=== PATIENT | male | born 1985 | race Caucasian/White ===

== ENCOUNTER 2020-01-09 11:02 | Outpatient (CLI) | payer BC, SELFPAY ==
[2020-01-12 03:05] LABS: Patient Race White; SARS-CoV-2 RNA Undetected (Undetected); SARS-CoV-2 Specimen Source Nasal
== END 2020-01-09 11:22 ==
PROVIDERS: PCP Family Medicine; Visit Provider Physician Assistant Medical
DX: R05 Cough (principal)
CPT/HCPCS: U0003

== ENCOUNTER → 2023-09-04 17:39 | Outpatient (CLI) | payer BC, SELFPAY ==
--- NOTE | 2023-09-04 18:23 | DI.RAD_ITS ---
Exam(s) XR CHEST 2V PA LATERAL EXAM: XR CHEST 2V PA LATERAL CLINICAL HISTORY: Chronic Cough R05.3 TECHNIQUE: 2D digital imaging was performed. Two views. COMPARISON: No exams were available for comparison FINDINGS: HEART: Normal size. Aorta: Not dilated. PULMONARY VASCULATURE: Normal. MEDIASTINUM: Unremarkable. LUNGS: Clear. PLEURAL SPACE: No pleural effusion or pneumothorax. BONE:Unremarkable for age. SOFT TISSUES: Unremarkable. IMPRESSION: No acute abnormality. DATA REPOSITORY: RADIATION DOSE DELIVERED:
--- NOTE | 2023-09-04 19:28 | DI.VRAD_ITS ---
PROCEDURE INFORMATION: Exam: XR Chest Exam date and time: 09/04/2023 6:20 PM Age: 38 years old Clinical indication: Cough TECHNIQUE: Imaging protocol: Radiologic exam of the chest. Views: 2 views. COMPARISON: No relevant prior studies available. FINDINGS: Lungs: Increased linear opacities noted in the left lower lobe, concerning for atelectasis versus pneumonia. Pleural spaces: No pleural effusion. No pneumothorax. Heart/Mediastinum: No cardiomegaly. Bones/joints: Unremarkable. IMPRESSION: Findings concerning for mild pneumonia versus atelectasis in the left lower lobe. Correlate with clinical findings. Dictated and Authenticated by: Courtney Devine MD. Ordering:MOLLY Hernandez MD
== END ==
LOC: LBN 17:43 → DI 18:05
PROVIDERS: PCP Internal Medicine; Visit Provider Physician Assistant Medical
DX: R05.3 Chronic cough (principal)
CPT/HCPCS: 71046

== ENCOUNTER 2023-12-25 14:54 | Emergency (ER) | payer OTHER, SELFPAY ==
[2023-12-25 14:55] VITALS: BP 131/81; PULSE 66; RESP 16; TEMP 37.1; O2SAT 98
[2023-12-25 15:06] VITALS: BP 131/81; PULSE 66; RESP 16; TEMP 37.1; O2SAT 98
--- NOTE | 2023-12-25 15:09 | ED.GENADUL_ITS ---
Discharge Plan Disposition Patient Disposition: Home Condition: Stable Discharge Details Clinical Impression: Dog bite of left hand Primary Care Provider: Roberto Neil ED Provider: Jamar Stack Home Meds and New Rx's Prescriptions: New amoxicillin-pot clavulanate 875-125 mg tablet 1 tab PO BID Qty: 14 0RF Continued albuterol sulfate 8.5 GM HFA aerosol inhaler 2 puff Inhalation PRN PRN dexlansoprazole [Dexilant] 30 MG capsule,biphase delayed releas 30 mg PO DAILY ondansetron HCl [Zofran] 4 MG tablet 4 mg PO Q6H PRN (Reason: Vomiting) Qty: 12 0RF omeprazole 40 mg capsule,delayed release(DR/EC) 40 mg PO DAILY losartan 50 mg tablet 50 mg PO DAILY Discharge Instructions Additional Instructions: If the dog is not up-to-date on its shots if they can be watched for 10 days and does not show signs of rabies such as hypersalivation and no rabies prophylaxis is indicated. If you have spreading redness from the wound or severe worsening hand pain return to the emergency department for reevaluation. HPI General Mode of arrival: ambulatory . Date/Time Provider Initiated Documentation: 12/25/23 15:01 . Limitations to Documentation: no limitations . Information obtained by: patient . History of Present Illness 38 year old M presents to the emergency department with the chief complaint of dog bite left hand, and is localized to the left and upper extremity. Patient reports no radiation. Patient started experiencing this hour(s) (2) and it has been constant. No relieving factors improve symptom(s), No exacerbating factors reported . Patient notes no other symptoms.. Related Data Home Medications ?Medication ?Instructions ?Recorded ?Confirmed albuterol sulfate 90 mcg/actuation 2 puff inhalation PRN PRN 04/04/13 12/25/23 aerosol inhaler dexlansoprazole 30 mg 30 mg PO DAILY 04/04/13 12/25/23 capsule,biphase delayed release (Dexilant) ondansetron HCl 4 mg tablet 4 mg PO Q6H PRN Vomiting ##12 04/13/14 12/25/23 (Zofran) amoxicillin 875 mg-potassium 1 tab PO BID #14 tabs 12/25/23 clavulanate 125 mg tablet losartan 50 mg tablet 50 mg PO DAILY 12/25/23 12/25/23 omeprazole 40 mg capsule,delayed 40 mg PO DAILY 12/25/23 12/25/23 release Previous Rx's ?Medication ?Instructions ?Recorded ondansetron HCl 4 mg tablet 4 mg PO Q6H PRN Vomiting ##12 04/13/14 (Zofran) amoxicillin 875 mg-potassium 1 tab PO BID #14 tabs 12/25/23 clavulanate 125 mg tablet Allergies Allergy/AdvReac Type Severity Reaction Status Date / Time No Known Allergies Allergy Unverified 12/25/23 14:59 General Stated Complaint: AnimalBite TENA: 4 Review of Systems All systems reviewed & are unremarkable except as noted in HPI and below Constitutional Constitutional: Denies chills, Denies fever(s) and Denies weakness Cardiovascular Cardiovascular: Denies dyspnea Respiratory Respiratory: Denies cough and Denies dyspnea Gastrointestinal Gastrointestinal: Denies abdominal pain and Denies vomiting Integumentary/Breasts Skin/Breast: Denies rash Neurologic Neurologic: Denies weakness Exam Const General: no acute distress Orientation: alert HENFL Head: normal to inspection Ears: external ears normal General nose exam: external nose normal Mouth: moist mucous membranes Eyes General: appearance normal, both eyes and all related structures Neck Neck: normal visual inspection Resp Effort & Inspection: normal respiratory effort and able to speak in complete sentences Cardio Rate: regular rate Skin General skin exam: no rashes or lesions noted Neuro General: patient alert and patient oriented x3 Extrem General: full ROM and capillary refill normal Psych Mental Status: mental status grossly normal Course Vital Signs Vital signs: Vital Signs Temperature 37.1 C 12/25/23 14:55 Pulse 66 12/25/23 14:55 Respiratory Rate 16 12/25/23 14:55 Blood Pressure 131/81 12/25/23 14:55 Pulse Oximetry 98 12/25/23 14:55 Temperature 37.1 C 12/25/23 15:06 Temperature Source Oral 12/25/23 15:06 Pulse 66 12/25/23 15:06 Respiratory Rate 16 12/25/23 15:06 Respiratory Effort Normal, Non-Labored 12/25/23 15:00 Blood Pressure 131/81 12/25/23 15:06 Blood Pressure Position Sitting 12/25/23 15:06 Pulse Oximetry 98 12/25/23 15:06 Oxygen Delivery Method Room Air 12/25/23 15:06 Oxygen Flow Rate 0 12/25/23 15:06 Pain Level 1 12/25/23 15:06 Medical Decision Making 38-year-old male comes in with a dog bite to the left hand. 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 Did not fall or sustain other injuries. He has a small 1 to 2 mm superficial puncture wound to the left lateral hand. No other abrasions or laxity with full range of motion of the fingers and wrist and no bony tenderness so doubt fracture and do not feel x-ray is indicated. He says the dogs are up-to-date on his rabies vaccine so do not feel rabies prophylaxis is indicated. Dog and also a wash for [address] him on Augmentin and return precautions given Differential Diagnosis Differential Diagnosis: Dog bite, puncture wound Quality:SDOH Health Related Social Needs: No Data to Display PFSH All Active Problems (Updated 12/25/23 @ 15:11 by Jamar Stack MD) Dog bite of left hand (Acute) Social History Smoking/Tobacco Use Status: Never Smoking risk assessment performed?: Yes Alcohol Intake: current Alcohol Intake frequency: a few times a week Alcohol type: beer, wine and hard liquor Drug use: Never Substance use type: does not use Do you feel safe at home: Yes Do you feel safe in your relationship?: Yes
[2023-12-25] MEDS: Amoxicillin 875/Clav. 125 TAB PO (15:20)
[2023-12-25] MEDS: Tetanus & Diphtheria Tox,ADULT 0.5 ML VIAL IM (15:20)
--- OUTSIDE RECORDS SUMMARY | 2023-12-25 15:22 | XMS_ITS | Clinical Summary ---
Author Organization [facility] [place] [address] Care Team Providers Care Community Living Specialist Name Role Phone Olya Bauman MD Primary Care Provider [phone] Allergies No known active allergies Medications Medication Sig Dispensed Refills Start Date End Date Status dexlansoprazole (DEXILANT) 60 mg CpDM Take 60 mg by mouth daily. Active albuterol (PROVENTIL HFA;VENTOLIN HFA;PROAIR) 90 mcg/actuation HFA Aerosol Inhaler Inhale 2 puffs into the lungs every 4 hours as needed for Wheezing. Use with spacer Active ERGOCALCIFEROL, VITAMIN D2, (VITAMIN D ORAL) Take by mouth. Active Active Problems Problem Noted Date Diagnosed Date Araiza's esophagus 10/17/2014 Hiatal hernia 10/17/2014 Esophageal reflux 06/19/2014 Dermatitis 03/31/2011 Ichthyosis vulgaris 03/20/2011 Pruritus 03/20/2011 Social History Tobacco Use Types Packs/Day Years Used Date Smoking Tobacco: Never Smokeless Tobacco: Never Alcohol Use Standard Drinks/Week Comments Yes 0 (1 standard drink = 0.6 oz pur e alcohol) Occasional Sex and Gender Information Value Date Recorded Sex Assigned at Not on file Gender Identity Not on file Sexual Orientation Not on file Last Filed Vital Signs Vital Sign Reading Time Taken Comments Blood Pressure 132/71 12/25/2017 2:30 PM EDT Pulse 92 12/25/2017 2:05 PM EDT Temperature 37.3 ??C (99.1 ??F) 12/25/2017 1:16 PM ED T Respiratory Rate 16 12/25/2017 2:30 PM EDT Oxygen Saturation 95% 12/25/2017 2:15 PM EDT Inhaled Oxygen Concentration - - Weight 99.8 kg (220 lb) 12/25/2017 1:12 PM EDT Height 177.8 cm (5' 10) 12/25/2017 1:12 PM EDT Body Mass Index 31.57 12/25/2017 1:12 PM EDT Plan of Treatment Health Maintenance Due Date Last Done Comments HIV screen 2004 Hepatitis C Screening 2004 Lipid Screening 2004 Hepatitis B vaccine (0-59 yrs) (1) 2005 Tetanus/Diphtheria/Pertussis Vaccines (1 - Tdap) 08/22 Covid-19 Vaccine (1 - season) 2023 Influenza (Flu) vaccine (1 o f 1 - Influenza standard series) 10/25/2023 Care Teams Community Living Specialist Relationship Specialty Start Date End Date Olya Bauman MD [address] [place] [address] PCP - General 01/29/11
--- OUTSIDE RECORDS SUMMARY | 2023-12-25 15:22 | XMS_ITS | Encounter Summary ---
Author Organization [facility] Address [facility] [place] [address] Care Team Providers Care Security Systems Technician Name Role Phone Olya Bauman MD Primary Care Provider [phone] Encounter Details Date Type Department Care Team (Late st Contact Info) Description 12/25/2017 12:19 PM EDT - 12/25/2017 2:47 PM EDT Hospital [place] [id number] Hi Scales MD [facility] [place] [address] Discharge Disposition: Home Social History Tobacco Use Types Packs/Day Years Used Date Smoking Tobacco: Never Smokeless Tobacco: Never Alcohol Use Standard Drinks/Week Comments Yes 0 (1 standard drink = 0.6 oz pur e alcohol) Occasional Sex and Gender Information Value Date Recorded Sex Assigned at Not on file Gender Identity Not on file Sexual Orientation Not on file documented as of this encounter Last Filed Vital Signs Vital Sign Reading [...] Mass Index 31.57 12/25/2017 1:12 PM EDT documented in this encounter Discharge Instructions * Discharge Instructions* Lien Maynard RN - 12/25/2017 2:07 PM EDT UPPER GI ENDOSCOPY WHAT TO EXPECT AFTER THE PROCEDURE After the test you may feel a little more gassy or bloated than usual, this is normal. ACTIVITY Because of the sedation that you received Your judgement and reaction time are affected ?? Go home and rest quietly for the remainder of the day. You may resume your normal activities tomorrow. ?? Change from one position to the next slowly. You may lose your balance unexpectedly Be careful on stairs, as you may be unsteady on your feet. FOR THE NEXT 24 HRS ?? DO NOT DRIVE OR OPERATE ANY MACHINERY ?? DO NOT DRINK ALCOHOLIC BEVERAGES ?? DO NOT SIGN LEGAL DOCUMENTS ?? If you are a smoker: DO NOT SMOKE WHILE YOU ARE ALONE Diet ?? Start by eating small portions of foods that ordinarily will not upset your stomach. Be gentle with what you choose to start with. ?? Drink plenty of fluids ( unless otherwise told not to) Medications You may have a mild sore throat. Ice chips, popsicles, over the counter throat lozenges or spray may help numb your throat. This procedure should not cause a fever. IV SITE-- slight redness or tenderness is normal, you can use warm compresses if you get concerned.If the tenderness +/or redness increases or foul drainage and a red streak occurs, please contact your PCP immediately. WHEN SHOULD YOU CALL FOR HELP? Call 911 anytime you think that you need emergency care. For example, call if: You passed out (lost consciousness). You cough up blood. You vomit blood or what looks like coffee grounds. You pass maroon or very bloody stools. Call your healthcare provider or seek immediate medical attention if: You have trouble swallowing. You have belly pain. Your stools are black or tarlike or have streaks of blood. You are sick to your stomach or cannot keep fluids down. Watch closely for changes in your health, and be sure to contact your doctor IF Your throat still hurts after a day or two You do not get better as expected. Thursday-Thursday Same Day Endo [phone] 7a-8p Otherwise contact [phone] and ask to speak to the security officers and guards diamond powder mixer Follow-up care is a hope part of your treatment and safety. Be sure to make and go to all appointments, and call your doctor if you are having problems. Instructions have been reviewed and patient expresses understanding documented in this encounter Medications at Time of Discharge Medication Sig Dispensed Refills Start Date End Date albuterol (PROVENTIL HFA;VENTOLIN HFA;PROAIR) 90 mcg/actuation HFA Aerosol Inhaler Inhale 2 puffs into the lungs every 4 hours as needed for Wheezing. Use with spacer ERGOCALCIFEROL, VITAMIN D2, (VITAMIN D ORAL) Take by mouth. dexlansoprazole (DEXILANT) 60 mg CpDM Take 60 mg by mouth daily. documented as of this encounter H&P Notes * Hi Scales MD - 12/25/2017 12:55 PM EDT Patient Name: Shaka Liu Patient Age: 32 y.o. Birthdate: 1985 Admit date: 12/25/2017 Attending Physician: Hi Scales MD Gastroenterology & Hepatology Pre-Procedure History and Physical Planned Procedure: EGD: Indication: Araiza's surveillance, history of reflux and hiatal hernia Patient Active Problem List Diagnosis Code ??? Ichthyosis vulgaris Q80.0 ??? Pruritus L29.9 ??? Dermatitis L30.9 ??? Esophageal reflux K21.9 ??? Araiza's esophagus K22.70 ??? Hiatal hernia K44.9 Medications: Reviewed in EDH No Known Allergies Social History/Family History: Reviewed in EDH. No changes Exam: Most Recent Vitals: 12/25/17 1316 BP: 133/85 Pulse: 72 Resp: 18 Temp: 37.3 ??C (99.1 ??F) SpO2: 97% GEN: NAD, AAOX3 HEENT: NC/AT dryMM, anicteric Chest: CTAB Heart: RRR, nl s1, s2 Abdomen: normal bowel sounds, soft, non tender Assessment and Plan: Proceed with EGD: ASA Grade: ASA 1 - Normal health patient Mallampati: I (soft palate, uvula, fauces, tonsillar pillars visible) Sedation plan: Moderate Conscious sedation Risks and benefits of the procedure were discussed with the patient. Consent has been signed. documented in this encounter Plan of Treatment Not on file documented as of this encounter Procedures Procedure Name Priority Date/Time Associated Diagnosis Comments SPECIMEN TO PATHOLOGY Routine 12/25/2017 1:58 PM EDT SURGICAL PATHOLOGY REPORT Routine 12/25/2017 1:57 PM EDT EGD, UPPER GI ENDOSCOPY (WRVU 2.09) 12/25/2017 1:34 PM EDT 3yr surv UPPER GI ENDOSCOPY Routine 12/25/2017 1: 19 PM EDT documented in this encounter Results * Specimen to Pathology (12/25/2017 1:58 PM EDT) AP Specimen 12/25/2017 1:58 PM EDT 12/25/2017 2:58 PM EDT Narrative [facility] - 12/25/2017 2:58 PM EDT Specimen requisition ordered. ??Separate Pathology report to follow Resulting Agency Comment Spec In Lab Hi Scales MD PATHOLOGY/CYTOLOG Y ORDERABLES [facility] [place] [address] * Surgical Pathology Report (12/25/2017 1:57 PM EDT) Final Diagnosis [id number] ? Location: 4T; EA08; A The signing pathologist has (i) examined the relevant preparation(s) for the specimen(s) and (ii) rendered or confirmed the diagnosis(es). . ?Surgical Pathology DIAGNOSIS Esophagus, 35-37 cm, Araiza ??'s surveillance, ??biopsy - ??Araiza's esophagus, negative for dysplasia. Electronically signed by: ??Thomas Rhodes MD Verified: ??12/29/2017 ?Pathologist Performed at: ??[facility] Dept. of Pathology, [place], [place] CLINICAL INFORMATION Specimen Submitted: A - Esophagus 35-37 cm Clinical History and Diagnosis: 32-year-old male history of Araiza ??'s, surveillance SPECIMEN PROCESSING A - Labeled/Fixative : Esophagus 35-37 cm Araiza ?? 's surveillance, formalin. Quantity/Size: Five, averaging 0.4 cm. Tissue Description: Soft, red tissues. Sections/Process ing: Submitted en toto ??in 1 cassette labeled A1. ??sns 12/29/2017 4:17 PM EST [facility] GI Biopsy 12/25/2017 1:57 PM EDT 12/25/2017 1:57 PM EDT Hi Scales MD PATHOLOGY/CYTOLOG Y ORDERABLES Performing Organization Address City/State/[facility] Co de Phone Number [facility] [place] [address] * UPPER GI ENDOSCOPY (12/25/2017 1:19 PM EDT) UPPER GI ENDOSCOPY [facility] Procedure Date: 12/25/2017 1:19 PM ? Patient Name: Shaka Liu ? Date of : 1985 ? Age: 32 ? Order #: [id number] ? Instrument Name: [id number] ? Procedure: ? Upper GI endoscopy Indications: ? Surveillance for malignancy due to ? personal history of Araiza's ? esophagus Providers: ? Hi Scales MD, Kimberly ? Eddi Oliver RN Referring : ?Olya Bauman MD Medicines: ? Midazolam 5 mg IV, Fentanyl 250 ? micrograms IV, Benzocaine spray, ? Diphenhydramine 50 mg IV Complications: ? No immediate complications. Procedure: ? Pre-Anesthesia Assessment: ? - Prior to the procedure, a History ? and Physical was performed, and ? patient medications and allergies ? were reviewed. The patient's ? tolerance of previous anesthesia was ? also reviewed. The risks and benefits ? of the procedure and the sedation ? options and risks were discussed with ? the patient. All questions were ? answered, and informed consent was ? obtained. Prior Anticoagulants: The ? patient has taken no previous ? anticoagulant or antiplatelet agents. ? ASA Grade Assessment: I - A normal, ? healthy patient. After reviewing the ? risks and benefits, the patient was ? deemed in satisfactory condition to ? undergo the procedure. ? The procedure, indications, benefits, ? risks and alternatives were explained ? to the patient. Specifically ? discussed were potential ? complications including, but not ? limited to, bleeding, perforation, ? infection, missing a cancer, and ? adverse medication reactions. The ? Endoscope was introduced through the ? mouth, and advanced to the third part ? of duodenum. The patient tolerated ? the procedure well. The upper GI ? endoscopy was accomplished without ? difficulty. The patient tolerated the ? procedure well. ? Findings: ? The Z-line was irregular and was found 35 to 36 cm ? from the incisors. ? There were esophageal mucosal changes consistent with ? short-segment Araiza's esophagus present in the ? distal esophagus from 36-37 cm with a tongue of pink ? mucosa extending to 35 cm. The maximum longitudinal ? extent of these mucosal changes was 2 cm in length. ? Mucosa was examined with Narrow Band Imaging (NBI). ? Mucosa was biopsied with a cold forceps for ? histology. Circumferential 4 quadrant biopsies were ? taken from 36-37 cm with targeted biopsies within ? mucosal changes from 35-36 cm. One specimen bottle ? was sent to pathology with a total of 8 biopsy ? specimens. ? A small 2-3 cm sliding hiatal hernia was found. The ? proximal extent of the gastric folds (end of tubular ? esophagus) was 37 cm from the incisors. The hiatal ? narrowing was 40 cm from the incisors. ? The stomach was otherwise normal including the ? retroflexed views ? The examined duodenum was normal. ? Moderate Sedation: ? Moderate (conscious) sedation was administered by the ? endoscopy nurse and supervised by the endoscopist. ? The patient's oxygen saturation, heart rate, blood ? pressure and response to care were monitored. ? I was present during the intraservice time as ? documented by the sedation RN. Impression: ?- Z-line irregular, 35 to 36 cm from ? the incisors. ? - Esophageal mucosal changes ? consistent with short-segment ? Araiza's esophagus from 35-37 cm. ? Biopsied. ? - Small 2-3 cm sliding hiatal hernia. ? - Normal stomach. ? - Normal examined duodenum. Recommendation: ?- Await pathology results. ? - Follow an antireflux regimen. ? - Continue daily PPI therapy (e.g ? Dexilant) as you are doing. ? - Repeat Endoscopy in 3-5 years for ? surveillance. ? Attending Participation: ? I personally performed the entire procedure. ? I was present during the intraservice time as ? documented by the sedation RN. ? Dr. Franco Scales ___ Hi Scales MD 12/25/2017 2:05:16 PM Number of Addenda: 0 Note Initiated On: 12/25/2017 1:19 PM PROVATION 12/25/2017 1:19 PM EDT Olya Bauman MD GENERAL SURGICAL ORD ERABLES PROVATION documented in this encounter Visit Diagnoses Not on filedocumented in this encounter Administered Medications Inactive Administered Medications - up to 3 most recent administrations Medication Order MAR Action Action Date Dose Rate Site lactated Ringers infusion 100 mL/hr, Intravenous, CONTINUOUS, Starting on Thu12/25/17 at 1330, Until Thu12/25/17 at 1440, Endoscopy (Day of Procedure) New Bag 12/25/2017 1:30 PM EDT 100 mL/hr 100 mL/hr documented in this encounter Active and Recently Administered Medications Times are shown in EDT. Continuous Medication Order 12/23/2017 12/24/2017 12/25/2017 lactated Ringers infusion (CANCELED) 100 mL/hr, Intravenous, CONTINUOUS, Starting on Thu12/25/17 at 1330, Until Thu12/25/17 at 1440, Endoscopy (Day of Procedure) 1330 (New Bag - Prov ider: María Knutson RN) PRN Medication Order 12/23/2017 12/24/2017 12/25/2017 diphenhydrAMINE (BENADRYL) injection (CANCELED) ONCE PRN, Starting on Thu12/25/17 at 1334, Until Thu12/25/17 at 1647, Intra-Operative (Intra-Procedure), Routine 1331 (Given - Provid er: Kimberly Oliver RN)1334 (Given - Provider: Kimberly Oliver RN) fentaNYL 50 mcg/mL multi-dose injection (CANCELED) ONCE PRN, Starting on Thu12/25/17 at 1335, Until Thu12/25/17 at 1647, Intra-Operative (Intra-Procedure), Routine 1335 (Given - Provid er: Kimberly Oliver RN)1338 (Given - Provider: Kimberly Oliver RN)1341 (Given - Provider: Kimberly Oliver RN)1345 (Given - Provider: Kimberly Oliver RN)1348 (Given - Provider: Kimberly Oliver RN) midazolam (PF) (VERSED) multi-dose injection (CANCELED) ONCE PRN, Starting on Thu12/25/17 at 1334, Until Thu12/25/17 at 1647, Intra-Operative (Intra-Procedure), Routine 1334 (Given - Provid er: Kimberly Oliver RN)1337 (Given - Provider: Kimberly Oliver RN)1341 (Given - Provider: Kimberly Oliver RN)1344 (Given - Provider: Kimberly Oliver RN)1348 (Given - Provider: Kimberly Oliver RN) documented in this encounter Care Teams Security Systems Technician Relationship Specialty Start Date End Date Olya Bauman MD [address] [address] PCP - General 01/29/11 documented as of this encounter
--- OUTSIDE RECORDS SUMMARY | 2023-12-25 15:22 | XMS_ITS | Encounter Summary ---
Author Organization [facility] Address [facility] [place] [address] Care Team Providers Care Wagon Washer Name Role Phone Olya Bauman MD Primary Care Provider [phone] Encounter Details Date Type Department Care Team (Latest Contact Info) Description 11/07/2014 10:10 AM EDT - 11/07/2014 11:59 PM EDT Hospital Encounter XRay at [address] [place] [address] Daryl Mcdaniel MD [facility] [place] [address] Araiza's esophagus; Hiatal hernia Discharge Disposition: Home Social History Tobacco Use Types Packs/Day Years Used Date Smoking Tobacco: Never Smokeless Tobacco: Never Alcohol Use Standard Drinks/Week Comments Yes 0 (1 standard drink = 0.6 oz pur e alcohol) Occasional Sex and Gender Information Value Date Recorded Sex Assigned at Not on file Gender Identity Not on file Sexual Orientation Not on file documented as of this encounter Medications at Time of Discharge [...] mouth daily. documented as of this encounter Plan of Treatment Not on file documented as of this encounter Procedures Procedure Name Priority Date/Time Associated Diagnosis Comments XR FLUORO BARIUM SWALLOW (SINGLE CONTRAST) Routine 11/07/2014 10:43 AM EDT Araiza's esophagus Hiatal hernia documented in this encounter Results * XR Fluoro Barium Swallow (11/07/2014 10:43 AM EDT) Anatomical Region Laterality Modality N/A Radiographic Lisa ging 11/07/2014 10:4 3 AM EDT Impressions 11/08/2014 3:55 PM EDT IMPRESSION: Tiny sliding hiatal hernia. Gastroesophageal reflux with supine position. This report was reviewed by Jenna Cannon at 11/08/2014 3:49 PM Film and interpretation reviewed by the attending Narrative 11/08/2014 3:55 PM EDT EXAMINATION: BARIUM SWALLOW CLINICAL HISTORY: Question type and size of hiatal hernia. TECHNIQUE: Double contrast esophagram was performed. Fluoroscopic spot films were obtained. A 13 mm barium tablet was given. Fluoroscopy time: 52 seconds. COMPARISON: None FINDINGS: The esophagus is normal in course and caliber, and is distended on double contrast views. The mucosal pattern is normal. There is a tiny sliding hiatal hernia. Esophageal peristalsis is normal. Faint gastroesophageal reflux when patient moves from lateral position to supine. A 13 mm barium tablet passed easily through the esophagus into the stomach. Procedure Note Jenna Cannon MD - 11/08/2014 EXAMINATION: BARIUM SWALLOW CLINICAL HISTORY: Question type and size of hiatal hernia. TECHNIQUE: Double contrast esophagram was performed. Fluoroscopic spotfilms were obtained. A 13 mm barium tablet was given. Fluoroscopy time: 52 seconds. COMPARISON: None FINDINGS: The esophagus is normal in course and caliber, and is distended ondouble contrast views. The mucosal pattern is normal. There is a tiny slidinghiatal hernia. Esophageal peristalsis is normal. Faint gastroesophageal refluxwhen patient moves from lateral position to supine. A 13 mm barium tabletpassed easily through the esophagus into the stomach. IMPRESSION IMPRESSION: Tiny sliding hiatal hernia. Gastroesophageal reflux with supine position. This report was reviewed by Jenna Cannon at 11/08/2014 3:49 PM Film and interpretation reviewed by the attending Daryl Mcdaniel MD IMG FLUORO ORDERABLE S documented in this encounter Visit Diagnoses Diagnosis Araiza's esophagus Hiatal hernia Diaphragmatic hernia without mention of obstruction or gangrene documented in this encounter Administered Medications Inactive Administered Medications - up to 3 most recent administrations Medication Order MAR Action Action Date Dose Rate Site barium sulfate (E-Z DISK) tablet 700 mg 700 mg, Oral, ONCE PRN, 1 dose, Starting on Thu11/07/14 at 1037, Until Thu11/07/14 at 1042, Per Protocol, Routine Given 11/07/2014 10:42 AM EDT 700 mg barium sulfate (E-Z-HD) 98 % oral suspension 120 mL 120 mL, Oral, ONCE PRN, 1 dose, Starting on Thu11/07/14 at 1037, Until Thu11/07/14 at 1043, Per Protocol, Routine Given 11/07/2014 10:43 AM EDT 120 mLs barium sulfate (VARIBAR THIN LIQUID) oral powder 200 mL 200 mL, Oral, ONCE PRN, 1 dose, Starting on Thu11/07/14 at 1041, Until Thu11/07/14 at 1043, Per Protocol, Routine Given 11/07/2014 10:43 AM EDT 200 mLs documented in this encounter Care Teams Wagon Washer Relationship Specialty Start Date End Date Olya Bauman MD [address] [place] [id number] PCP - General 01/29/11 documented as of this encounter
--- OUTSIDE RECORDS SUMMARY | 2023-12-25 15:22 | XMS_ITS | Encounter Summary ---
Author Organization [facility] Address [facility] [place] [address] Care Team Providers Care Director Product Safety Name Role Phone Olya Bauman MD Primary Care Provider [phone] Encounter Details Date Type Department Care Team (Late st Contact Info) Description 12/25/2017 1:30 PM EDT - 12/25/2017 2:00 PM EDT Surgery [place] [id number] Hi Scales MD [facility] [place] [address] EGD, UPPER GI ENDOSCOPY (WRVU 2.09) Social History Tobacco Use Types Packs/Day Years [...] Sign Reading Time Taken Comments Blood Pressure 137/83 12/25/2017 1:55 PM EDT Pulse 94 12/25/2017 1:55 PM EDT Temperature 37.3 ??C (99.1 ??F) 12/25/2017 1:16 PM ED T Respiratory Rate 24 12/25/2017 1:55 PM EDT Oxygen Saturation 98% 12/25/2017 1:55 PM EDT Inhaled Oxygen Concentration - - Weight 99.8 kg (220 lb) 12/25/2017 1:12 PM EDT Height 177.8 cm (5' 10) 12/25/2017 1:12 PM EDT Body Mass Index 31.57 12/25/2017 1:12 PM EDT documented in this encounter Discharge Instructions * Discharge Instructions* Lien Maynard, MARYANNE - 12/25/2017 2:07 PM EDT UPPER GI [...] better as expected. Thursday-Thursday Same Day Endo [phone] 7a-8p Otherwise contact [phone] and ask to speak to the geriatrician insulation packer Follow-up care is a hope part of [...] PM EDT 12/25/2017 2:58 PM EDT Narrative [facility] - 12/25/2017 2:58 PM EDT Specimen requisition ordered. ??Separate Pathology report to follow Resulting Agency Comment Spec In Lab Hi Scales MD PATHOLOGY/CYTOLOG Y ORDERABLES [facility] [place] [address] * Surgical Pathology Report (12/25/2017 1:57 PM EDT) Final Diagnosis [id number] ? Location: 4T; EA08; A The signing pathologist has (i) examined the relevant preparation(s) for the specimen(s) and (ii) rendered or confirmed the diagnosis(es). . ?Surgical Pathology DIAGNOSIS Esophagus, 35-37 cm, Araiza ??'s surveillance, ??biopsy - ??Araiza's esophagus, negative for dysplasia. Electronically signed by: ??Carmelo CABRALES, Thomas Verified: ??12/29/2017 ?Pathologist Performed at: ??-[facility] [place], [place], [place] CLINICAL INFORMATION Specimen Submitted: A - Esophagus 35-37 cm Clinical History and Diagnosis: 32-year-old male history of Araiza ??'s, surveillance SPECIMEN PROCESSING A - Labeled/Fixative : Esophagus 35-37 cm Araiza ?? 's surveillance, formalin. Quantity/Size: Five, averaging 0.4 cm. Tissue Description: Soft, red tissues. Sections/Process ing: Submitted en toto ??in 1 cassette labeled A1. ??sns 12/29/2017 4:17 PM EST [facility] GI Biopsy 12/25/2017 1:57 PM EDT 12/25/2017 1:57 PM EDT Hi Scales MD PATHOLOGY/CYTOLOG Y ORDERABLES [facility] [place] [address] * UPPER GI ENDOSCOPY (12/25/2017 1:19 PM EDT) UPPER GI ENDOSCOPY [facility] Endoscopy Procedure Date: 12/25/2017 1:19 PM ? Patient Name: Shaka Liu ? Date of : 1985 ? Age: 32 ? Order #: [id number] ? Instrument Name: [id number] ? Procedure: ? Upper GI endoscopy Indications: ? Surveillance for malignancy due to ? personal history of Araiza's ? esophagus Providers: ? Hi Scales MD, Kimberly ? Eddi Oliver, MARYANNE Referring : ?Olya Bauman MD Medicines: ? [...] MAR Action Action Date Dose Rate Site diphenhydrAMINE (BENADRYL) injection ONCE PRN, Starting on Thu12/25/17 at 1334, Until Thu12/25/17 at 1647, Intra-Operative (Intra-Procedure), Routine Given 12/25/2017 1:34 PM EDT 25 mg Given 12/25/2017 1:31 PM EDT 25 mg fentaNYL 50 mcg/mL multi-dose injection ONCE PRN, Starting on Thu12/25/17 at 1335, Until Thu12/25/17 at 1647, Intra-Operative (Intra-Procedure), Routine Given 12/25/2017 1:48 PM EDT 50 mcg Given 12/25/2017 1:45 PM EDT 50 mcg Given 12/25/2017 1:41 PM EDT 50 mcg lactated Ringers infusion 100 mL/hr, Intravenous, CONTINUOUS, Starting on Thu12/25/17 at 1330, Until Thu12/25/17 at 1440, Endoscopy (Day of Procedure) New Bag 12/25/2017 1:30 PM EDT 100 mL/hr 100 mL/hr midazolam (PF) (VERSED) multi-dose injection ONCE PRN, Starting on Thu12/25/17 at 1334, Until Thu12/25/17 at 1647, Intra-Operative (Intra-Procedure), Routine Given 12/25/2017 1:48 PM EDT 1 mg Given 12/25/2017 1:44 PM EDT 1 mg Given 12/25/2017 1:41 PM EDT 1 mg documented in this encounter Active and Recently [...] RN) documented in this encounter Care Teams Director Product Safety Relationship Specialty Start Date End Date Olya Bauman MD [address] [address] PCP - General 01/29/11 documented as of this encounter
--- OUTSIDE RECORDS SUMMARY | 2023-12-25 15:23 | XMS_ITS | Encounter Summary ---
Author Organization [facility] [place] [address] Care Team Providers Care Senior Net Architect Name Role Phone Olya Bauman MD Primary Care Provider Encounter Details Date Type Department Care Team (Late st Contact Info) Description 03/20/2011 6:51 PM EST - 03/20/2011 11:59 PM EST Hospital [place] [address] Ministerio Lott MD [address] [place] [address], [facility] [place] [address] Discharge Disposition: Home Social History Tobacco Use Types Packs/Day Years Used Date Smoking Tobacco: Never Sex and Gender Information Value Date Recorded Sex Assigned at Not on file Gender Identity Not on file Sexual Orientation Not on file documented as of this encounter Plan of Treatment Not on file documented as of this encounter Procedures Procedure Name Priority Date/Time Associated Diagnosis Comments SURGICAL PATHOLOGY REPORT Routine 03/20/2011 7:00 PM EST documented in this encounter Results * SURGICAL PATHOLOGY REPORT (03/20/2011 7:00 PM EST) Surgical Pathology Report ? [facility] ? Provider: ?? MINISTERIO LOTT ?? Pt. Name: ?? LUZ ELENA JON Kathy ? Acc #: ?[id number] ? Pt. ? Col Date: ?? 03/20/2011 ? /Sex: ?1985,(25 years),Male ? Rec Date: ?? 03/20/2011 ? LOC: ?[facility] ? SURGICAL PATHOLOGY ? ---Pathologic Diagnosis--- ? Skin, right dorsal forearm, punch biopsy: ?Perivascular and perifollicular lymphohistiocytic inflammation with ? eosinophils. ??See Comment. ? CR-0 ? 03/21/11 ? AJE ? 03/25/11 Verified by: ? Juan Carlos Manzano MD ? Dermatopathologist ? (Electronic Signature) ? The attending pathologist whose signature appears on this report has ? reviewed all diagnostic slides and has edited the gross and/or ? microscopic portion of the report in rendering the final pathologic ? diagnosis. ? ---Comment--- ? The findings are consistent with a hypersensitivity reaction such as to a ? bite or a drug. ??There is a focus of follicular mucinosis that, in this ? context, may be a reactive phenomenon. ??Carmelita Slater, Harvinder, and ? Cristiano concur. ? ---Microscopic Description--- ? Slides reviewed, microscopic description not recorded. ? ---Gross Description--- ? Labeled/Fixative: ? Labeled with the patient's name and medical ? record number, R dorsal forearm; formalin. ? Qty/Size/Weight: ?Single punch, 0.4 cm, white, hair-bearing, ? unoriented, without a discrete cutaneous lesion. ? Sections/Processing: ??Bisected. ??(T1) ??aje/SHB ? ---Clinical Information--- ? Specimen Submitted: ? A - Right dorsal forearm, punch ? Clinical History/Diagnosis: ? 1-yr H/O pruritic erythematous papules on arms/forearms, thighs in PT with ? ichthyosis vulgaris / itchy red bump dz vs ? Report to: ? Ministerio Lott MD, III ? [facility] ? Provider: ?? MINISTERIO LOTT ?? Pt. Name: ?? LUZ ELENA JON ? Acc #: ?[id number] ? Pt. ? Col Date: ?? 03/20/2011 ? /Sex: ?1985,(25 years),Male ? Rec Date: ?? 03/20/2011 ? LOC: ?[facility] ? SURGICAL PATHOLOGY ? Dermatology ? [address], [address] ? [place], [place] ??[address] IRMA DAVIS 03/20/2011 7:00 PM EST Ministerio Lott MD PATHOLOGY/CYTOLOGY O RDERABLES IRMA DAVIS documented in this encounter Visit Diagnoses Not on filedocumented in this encounter Care Teams Senior Net Architect Relationship Specialty Start Date End Date Olya Bauman MD [address] [place] [address] PCP - General 01/29/11 documented as of this encounter
--- OUTSIDE RECORDS SUMMARY | 2023-12-25 15:23 | XMS_ITS | Encounter Summary ---
Author Organization [facility] Address [facility] [place] [address] Care Team Providers Care Entry Level Drafter Name Role Phone Charissa Bauman MD Primary Care Provider [phone] Reason for Visit * Reason Comments Allergy Testing Encounter Details Date Type Department Care Team (Late st Contact Info) Description 08/15/2011 9:00 AM EDT [place] [address] Sandra Alford MD [facility] [place] [address] Rash (Primary Dx) Discharge Disposition: Home Social History Tobacco Use Types Packs/Day Years Used Date Smoking Tobacco: Never Sex and Gender Information Value Date Recorded Sex Assigned at Not on file Gender Identity Not on file Sexual Orientation Not on file documented as of this encounter Progress Notes * Sandra Alford MD - 08/15/2011 8:44 AM EDT Dermatology [facility] [place] [address] (p) [phone] (f) [phone] FINAL VISIT - 08/15/2011 Shaka Liu : 1985 Staff Provider: Sandra Alford MD CC: 1. 96 hour patch test final reading (second, delayed reading) SUBJECTIVE: Here for final patch test reading and discussion of results and treatment plan. No problem since visit on Wednesday. 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 Random location of rash,itch. Not seeming related to anything. All year round. 2-3 year history. No family History of gluten allergy. No bowel problems. Never antihistamine. OBJECTIVE: Results of testing: No reactions to any of the [facility] allergens. No reactions to any of the patient's own personal care products tested as is. ASSESSMENT: This patient's dermatitis is best classified as dermatitis, other, hypersensitivity reaction. 2 3/4year duration. I don't have an etiology for this. I doubt gluten allergy given the path. PLAN: 1.Consider trying a different topical steroid for new lesions, seeing if response any different. Norx given today. 2.lab to tissue Transglutamase. Call him with result. 3. Daily antihistamine can be tried like zyrtec to see if it will blunt or prevent new lesions or lessen degree of itching. If so, then he could take antihistamine daily. 4. RTC-PRN Reassurance that I don't think this represents any serious internal disease. Providers: Sandra Alford M.D. ([id number]) Section of Dermatology CC: CHARISSA BAUMAN MD None documented in this encounter Plan of Treatment Not on file documented as of this encounter Procedures Procedure Name Priority Date/Time Associated Diagnosis Comments TISSUE TRANSGLUTAMINASE, IGA Routine 08/15/2011 9:12 AM EDT Rash documented in this encounter Results * Tissue transglutaminase, IgA (08/15/2011 9:12 AM EDT) TTG IgA Ab <4.0 <=3.9 u/ml [facility] Comment: Result Interpretation: Negative: ?<4 U/mL Weak Positive: ??4-10 U/mL Positive: ?>10 U/mL Blood specimen (specimen) 08/15/2011 9:12 AM EDT 08/15/2011 11:49 AM EDT Narrative Resulting Agency Comment Spec In Lab Sandra Alford MD IMMUNOLOGY ORDERABLE S Performing Organization Address City/State/[facility] Co ar Phone Number [facility] documented in this encounter Visit Diagnoses Diagnosis Rash- Primary Rash and other nonspecific skin eruption documented in this encounter Care Teams Entry Level Drafter Relationship Specialty Start Date End Date Charissa Bauman MD [address] [place] [id number] PCP - General 01/29/11 documented as of this encounter
--- OUTSIDE RECORDS SUMMARY | 2023-12-25 15:23 | XMS_ITS | Encounter Summary ---
Author Organization [facility] Address [address] [place] [address] Care Team Providers Care Director Report Name Role Phone Olya Bauman MD Primary Care Provider [phone] Reason for Visit * Reason Comments Cough Encounter Details Date Type Department Care Team ([facility] st Contact Info) Description 03/04/2022 16:30 [address] [facility] [address] [place] [id number] Caterina Mendiola NP [address] [facility] [address] [place] [address] Acute cough (Primary Dx) Social History Tobacco Use Types Packs/Day Years Used Date Smoking Tobacco: Never Smokeless Tobacco: Never Alcohol Use Standard Drinks/Week Comments Yes 10 (1 standard drink = 0.6 oz pu re alcohol) Interpersonal Safety Answer Date Record ed Physically Hurt Never 09/25/2019 Verbally Threaten Not on file 09/25/2019 Sex and Gender Information Value Date Recorded Sex Assigned at Not on file Gender Identity Male 09/10/2020 8:42 EDT Sexual Orientation Not on file documented as of this encounter Last Filed Vital Signs Vital Sign Reading Time Taken Comments Blood Pressure 138/86 03/04/2022 1635 EST Pulse 64 03/04/2022 1635 EST Temperature 36.9 ??C (98.4 ??F) 03/04/2022 1635 EST Respiratory Rate 18 03/04/2022 1635 EST Oxygen Saturation 98% 03/04/2022 1635 EST Inhaled Oxygen Concentration - - Weight - - Height - - Body Mass Index - - documented in this encounter Functional Status Functional Status Response Date of Assess ment Because of a physical, menta l, or emotional condition, does this person have difficulty doing errands alone such as visiting a doctor's office or shopping? No 11/06/2017 Cognitive Status Response Date of Assessm ent Because of a physical, menta l, or emotional condition, does this person have serious difficulty concentrating, remembering, or making decisions? No 11/06/2017 documented as of this encounter Patient Instructions * Patient Instructions* Caterina Mendiola NP - 03/04/2022 16:30 EST It appears to me that you have pneumonia of the left lower lung. I will call you with the radiology report of your x-ray if the reading is different than my own. Finish course of antibiotics prescribed by PCP. I have added an additional antibiotic. The cough syrup with codeine may make you drowsy. Do not drive while taking. Stay well hydrated Please follow-up with your PCP in the next week. Please be seen again if you develop fevers, worsening shortness of breath, chest pain. documented in this encounter Ordered Prescriptions Prescription Sig Dispensed Refills Start Date End Da te guaiFENesin-codeine (GUAIFENESIN AC) 100-10 mg/5 mL liquidIndications:Acute cough Take 5-10 mL by mouth 4 times daily as needed for Cough. Daily Max: 40 mL 120 mL 03/04/2022 11/19/2023 azithromycin (ZITHROMAX) 250 mg tabletIndications:Acute cough Take 2 tablets (500 mg) on day 1, followed by 1 tablet (250 mg) once daily on days 2 through 5. 6 Tablet 03/04/2022 07/07/2023 documented in this encounter Progress Notes * Gosia Scott, RN - 03/04/2022 1630 EST CC/HPI: Patient reports six weeks of cough and nasal congestion. Patient was seen last week and prescribed Augmentin, prednisone and benzonatate. Patient is still currently taking the Augmentin, he completed the course of prednisone yesterday. Patient denies any improvement in symptoms at this time. Covid Screening: In the last 72 hours, has the patient had: New or unusual cough, shortness of breath, new nasal congestion, sore throat, fever, chills, body aches, or new loss of taste or smell: Yes In the past 10 days, has the patient had a positive Covid test OR a confirmed close Covid exposure (<6ft for > 15mins in 24hr period)? (if yes, assign to [facility], regardless of vaccination status)-No PCP: Olya SCOTT RN 03/04/2022 16:24 * Caterina Mendiola NP - 03/04/2022 1630 EST [facility] Chief Complaint(s): Cough Assessment & Plan: 1. Acute cough 36 yo male with history of exercise induced asthma with 5 weeks cough, nasal congestion, fatigue. Cough is harsh. No fevers and not SOB. He has yet to feel improvement on prednisone and Augmentin. Vitals WNL. I am not hearing adventitious lung sounds but frequent cough is quite harsh. I was concerned for opacity in left lower lobe but initial radiology report was no acute cardiopulmonary findings. In discussion with Dr. Pacheco, he does think there may be increased density in posterior left lower lobe. I am concerned for pneumonia and have added azithromycin. Also will have him try cough syrup with codeine has he has not been able to get much sleep with cough Ddx includes upper airway cough syndrome, reactive airway, GERD, post viral cough I did discuss the differing radiology reads with Shaka. He is aware of recommendation for follow-up images 6-8 weeks and he plans to f/u with PCP - XR CHEST 2 VIEWS - azithromycin (ZITHROMAX) 250 mg tablet; Take 2 tablets (500 mg) on day 1, followed by 1 tablet (250 mg) once daily on days 2 through 5. Dispense: 6 Tablet; Refill: 0 - guaiFENesin-codeine (GUAIFENESIN AC) 100-10 mg/5 mL liquid; Take 5-10 mL by mouth 4 times daily as needed for Cough. Daily Max: 40 mL Dispense: 120 mL; Refill: 0 HPI: Shaka Liu is a 36 y.o. year-old male presenting for concern of cough x 5-6 weeks. Has also had nasal congestion. Patient was seen last week and prescribed Augmentin, prednisone and benzonatate. Patient is still currently taking the Augmentin, he completed the course of prednisone yesterday. Does not feel improved. Coughing fits are very intense Feels it more in throat and nasal passage. Cough is worse at night No vomiting Smoker: No Asthma: Yes, uses an albuterol inhaler - normally activity induced - has tried using the last 3-4 days COPD: No Cardiac hx: No Recent travel: No Sick contacts: No ROS: Fever/chills: No Fatigue: Yes Unintentional weight loss: No Loss of taste or smell: No Headaches: Yes - from coughing Myalgias: when starting antibitiotics Nasal congestion: Yes Sinus pressure: No PND: Yes Sore throat: Yes Acid reflux: well maintained - on omeprazole, props up on pillows Hemoptysis: No Wheezing: At night SOB: yes - sometimes with laying down at night Chest pain: no Lower extremity edema: No Immobilization or surgery: No Previous, objectively diagnosed PE or DVT: No Malignancy: No Objective: Vitals and nursing notes reviewed Examination: BP 138/86 (BP Cuff Location: Left arm, BP Patient Position: Sitting, BP Cuff Sizes: Adult, large) Pulse 64 Temp 36.9 ??C (98.4 ??F) (Oral) Resp 18 SpO2 98% Physical Exam Constitutional: Appearance: Normal appearance. He is not ill-appearing. HENT: Right Ear: Tympanic membrane, ear canal and external ear normal. Left Ear: Tympanic membrane, ear canal and external ear normal. Mouth/Throat: Mouth: Mucous membranes are moist. Pharynx: Oropharynx is clear. Cardiovascular: Rate and Rhythm: Normal rate. Heart sounds: Normal heart sounds. Pulmonary: Effort: Pulmonary effort is normal. Breath sounds: No wheezing, rhonchi or rales. Comments: Frequent harsh cough Neurological: Mental Status: He is alert. Data reviewed with patient (current and past results): XR CHEST 2 VIEWS Addendum: ADDENDUM: There is apparent added opacity in the posterior left lower lobe which is suspicious for pneumonia in the proper clinical setting. The cardiomediastinal silhouette and vasculature are within normal limits. No pleural effusion or pneumothorax is seen. RECOMMENDATION: Follow-up radiographs recommended in 6-[address] to document resolution. Dr Ministerio Pacheco reviewed this examination and discussed the findings and change in interpretationfrom the original report as well as the recommended follow-up in conjunction with Caterina Mendiola by telephone conference call on 03/05/2022 at 11:00 AM. Narrative: PROCEDURE INFORMATION: Exam: XR Chest Exam date and time: 03/04/2022 5:07 PM Age: 36 years old Clinical indication: Acute cough; Pain TECHNIQUE: Imaging protocol: Radiologic exam of the chest. Views: 2 views. COMPARISON: No relevant prior studies available. FINDINGS: Lungs: No focal areas of consolidation. Pleural spaces: Unremarkable. No pleural effusion. No pneumothorax. Heart/Mediastinum: Cardiac and mediastinal silhouettes are unremarkable. Bones/joints: No acute osseus lesion or fracture. Impression: No acute cardiopulmonary findings. THIS DOCUMENT HAS BEEN ELECTRONICALLY SIGNED BY AJITH SWANSON MD FOR ANY QUESTIONS OR CONCERNS REGARDING THIS REPORT PLEASE CALL [facility] AT [phone] This note may be in part documented using voice dictation software. Please forgive any errors or omissions that may result from use of dictation. documented in this encounter Plan of Treatment Not on file documented as of this encounter Procedures Procedure Name Priority Date/Time Associated Diagnosis Comments XR CHEST 2 VIEWS STAT 03/04/2022 17:1 3 EST Acute cough documented in this encounter Results * XR CHEST 2 VIEWS (03/04/2022 17:13 EST) Anatomical Region Laterality Modality Computed Radiogr aphy 03/04/2022 17:4 5 EST Addenda Addendum by Ministerio Pacheco MD on 03/05/2022 14:25 EST ADDENDUM: There is apparent added opacity in the posterior left lower lobe which is suspicious for pneumonia in the proper clinical setting. The cardiomediastinal silhouette and vasculature are within normal limits. No pleural effusion or pneumothorax is seen. RECOMMENDATION: ??Follow-up radiographs recommended in 6-[address] to document resolution[address] Dr Ministerio Pacheco reviewed this examination and discussed the findings and change in interpretation from the original report as well as the recommended follow-up in conjunction with Caterina Mendiola by telephone conference call on 03/05/2022 at 11:00 AM. Impressions 03/04/2022 17:45 EST No acute cardiopulmonary findings. THIS DOCUMENT HAS BEEN ELECTRONICALLY SIGNED BY AJITH SWANSON MD FOR ANY QUESTIONS OR CONCERNS REGARDING THIS REPORT PLEASE CALL [facility] AT [phone] Narrative 03/04/2022 17:45 EST PROCEDURE INFORMATION: Exam: XR Chest Exam date and time: 03/04/2022 5:07 PM Age: 36 years old Clinical indication: Acute cough; Pain TECHNIQUE: Imaging protocol: Radiologic exam of the chest. Views: 2 views. COMPARISON: No relevant prior studies available. FINDINGS: Lungs: No focal areas of consolidation. Pleural spaces: Unremarkable. No pleural effusion. No pneumothorax. Heart/Mediastinum: Cardiac and mediastinal silhouettes are unremarkable. Bones/joints: No acute osseus lesion or fracture. Procedure Note Ajith Swanson MD / Ministerio Pacheco MD - 03/04/2022 PROCEDURE INFORMATION: Exam: XR Chest Exam date and time: 03/04/2022 5:07 PM Age: 36 years old Clinical indication: Acute cough; Pain TECHNIQUE: Imaging protocol: Radiologic exam of the chest. Views: 2 views. COMPARISON: No relevant prior studies available. FINDINGS: Lungs: No focal areas of consolidation. Pleural spaces: Unremarkable. No pleural effusion. No pneumothorax. Heart/Mediastinum: Cardiac and mediastinal silhouettes are unremarkable. Bones/joints: No acute osseus lesion or fracture. IMPRESSION No acute cardiopulmonary findings. THIS DOCUMENT HAS BEEN ELECTRONICALLY SIGNED BY AJITH SWANSON MD FOR ANY QUESTIONS OR CONCERNS REGARDING THIS REPORT PLEASE CALL [facility] [phone] Caterina Mendiola [employer] [facility] NG ORDERABLES documented in this encounter Visit Diagnoses Diagnosis Acute cough- Primary documented in this encounter Historical Medications * This list may reflect changes made after this encounter. Medication Sig Dispensed Refills Start Date End Date benzonatate (TESSALON) 100 mg capsule TAKE TWO CAPSULES BY MOUTH THREE TIMES A DAY NEEDED FOR COUGH 02/24/2022 11/19/2023 amoxicillin-clavulanate (AUGMENTIN) 875-125 mg per tablet TAKE ONE TABLET BY MOUTH TWICE A DAY FOR SINUS INFECTION 02/24/2022 11/19/2023 added in this encounter Care Teams Director Report Relationship Specialty Start Date End Date Olya Bauman MD [address] [place] [id number] PCP - General 11/05/17 07/06/23 documented as of this encounter
--- OUTSIDE RECORDS SUMMARY | 2023-12-25 15:23 | XMS_ITS | Encounter Summary ---
Author Organization [facility] Address [address] [place] [address] Care Team Providers Care Grief Counsellor Name Role Phone Juana Olmedo NP Primary Care Provider [phone] Encounter Details Date Type Department Care Team (Latest Contact Info) Description 12/16/2023 [facility] [address] [place] [address] Juana Olmedo NP [address] [place] [address] Primary hypertension (Primary Dx); Vitamin D deficiency, unspecified; Pure hyperglyceridemia Social History Tobacco Use Types Packs/Day Years [...] on file documented as of this encounter Functional Status Functional Status Response Date of Assess ment Are you deaf or do you have serious difficulty h earing? No 05/13/2023 Because of a physical, menta l, or emotional condition, does this person have difficulty doing errands alone such as visiting a doctor's office or shopping? No 11/06/2017 Cognitive Status Response Date of Assessm ent Because of a physical, menta l, or emotional condition, does this person have serious difficulty concentrating, remembering, or making decisions? No 11/06/2017 documented as of this encounter Plan of Treatment Not on file documented as of this encounter Results * (ABNORMAL) LIPID PROFILE (INCLUDES CHOLESTEROL, TRIGLYCERIDES, HDL, LDL) (12/16/2023 8:00 EDT) Cholesterol 145 <200 mg/dL 12/16/2023 13:57 [facility] Comment:Note that therapeuti c goals will differ between patients based on cardiac risk factors and current medical therapy. HDL 29(L) >=40 mg/dl 12/16/2023 13:57 [facility] Comment:Note that therapeuti c goals will differ between patients based on cardiac risk factors and current medical therapy. LDL, Calculated 79 <160 mg/dL 13:57 [facility] Comment:Note that therapeuti c goals will differ between patients based on cardiac risk factors and current medical therapy. Triglyceride 187(H) <=150 mg/dL 12/16/2023 13:57 [facility] Comment:Note that therapeuti c goals will differ between patients based on cardiac risk factors and current medical therapy. Chol/HDL Ratio 5.0 See Note 12/16/2023 13:57 [facility] Comment: NOTE: Desirable Ratio = <4.1 Patient At Risk Ratio = >5.0(Males) ?>6.0(Females) Non HDL Cholesterol 116 <160 mg/dL 12/16/2023 13:57 [facility] Comment:Note that therapeuti c goals will differ between patients based on cardiac risk factors and current medical therapy. Blood VENOUS BLOOD / Unknown Venipuncture / Unknown 12/16/2023 8:00 EDT 12/16/2023 13:05 EDT Juana Olmedo NP CHEMISTRY & BLOOD GA S ORDERABLES [facility] [address] [place] [address] * VITAMIN D (25,OH) (12/16/2023 8:00 EDT) 25OH Vitamin D Tot 41 30 - 100 ng/mL 12/16/2023 14:14 [facility] Blood VENOUS BLOOD / Unknown Venipuncture / Unknown 12/16/2023 8:00 EDT 12/16/2023 13:05 EDT Juana Olmedo NP CHEMISTRY & BLOOD GA S ORDERABLES [facility] [address] [place] [address] * COMPREHENSIVE METABOLIC PANEL (CMP) (12/16/2023 8:00 EDT) [facility] Sodium 139 136 - 145 mmol/L 12/16/2023 13:57 [facility] Potassium 4.2 3.5 - 5.0 mmol/L 12/16/2023 13:57 [facility] Chloride 103 96 - 110 mmol/L 12/16/2023 13:57 [facility] CO2 Total 28 22 - 32 mmol/L 12/16/2023 13:57 [facility] Glucose 94 70 - 99 mg/dl 12/16/2023 13:57 [facility] BUN 21 10 - 26 mg/dL 12/16/2023 13:57 [facility] Creatinine 1.10 0.66 - 1.25 mg/dL 12/16/2023 13:57 [facility] eGFR 89 >60 mL/min/1.7 3m2 12/16/2023 13:57 [facility] Total Protein 7.3 6.3 - 8.2 g/dL 12/16/2023 13:57 [facility] Albumin 4.4 3.4 - 4.9 g/dL 12/16/2023 13:57 [facility] Alkaline Phosphatase 51 38 - 126 U/L 12/16/2023 13:57 [facility] AST 46 15 - 46 U/L 12/16/2023 13:57 [facility] ALT 45 <50 U/L 12/16/2023 13:57 [facility] Bilirubin, Total 1.2 <1.4 mg/dL 12/16/19 13:57 [facility] Calcium 8.9 8.5 - 10.5 mg/dL 12/16/2023 13:57 [facility] Albumin/Globulin Ratio 1.5 1.0 - 2.5 12/16/2023 13:57 [facility] Anion Gap 8 5 - 14 mmol/L 12/16/2023 13:57 [facility] Blood VENOUS BLOOD / Unknown Venipuncture / Unknown 12/16/2023 8:00 EDT 12/16/2023 13:05 EDT Juana Olmedo NP CHEMISTRY & BLOOD GA S ORDERABLES Performing Organization Address City/State/[facility] Co de Phone Number [facility] [address] [place] [phone] documented in this encounter Visit Diagnoses Diagnosis Primary hypertension- Primary Unspecified essential hypertension Vitamin D deficiency, unspecified Pure hyperglyceridemia documented in this encounter Care Teams Grief Counsellor Relationship Specialty Start Date End Date Juana Olmedo NP [address] [place] [phone] PCP - General 07/07/23 documented as of this encounter
--- OUTSIDE RECORDS SUMMARY | 2023-12-25 15:23 | XMS_ITS | Encounter Summary ---
[place] [address] Care Team Providers Care Truck Rental Clerk Name Role Phone Olya Bauman MD Primary Care Provider [phone] Reason for Visit * Reason Comments Suture / Staple Removal Encounter Details Date Type Department Care Team (Late st Contact Info) Description 03/31/2011 5:15 PM EST Office Visit Dermatology [facility] [facility] [address] [place] [address] Ministerio Khanna MD [address] [facility] [place] [address] Dermatitis (Primary Dx) Social History Tobacco Use Types Packs/Day Years Used Date Smoking Tobacco: Never Sex and Gender Information Value Date Recorded Sex Assigned at Not on file Gender Identity Not on file Sexual Orientation Not on file documented as of this encounter Progress Notes * Ministerio Khanna MD - 03/31/2011 6:20 PM EST Problem: Followup for suture removal and biopsy results. Shaka follows up and the punch biopsy came back showing perivascular and perifollicular lymphocytic inflammation with eosinophils, consistent with a hypersensitivity reaction such as to a bite or drug. Shaka reminds me that he has had this problem for about a year and a half. 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 He notes that he does not have exposure to animals, pets. He has been in three different localities over the year in a half in question and he has continued to get a steady stream of itchy red bumps present summer, winter and would equal although varying regularity. His significant other has no problems of any itchy rash herself. 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 Interestingly his erythematous papules really just develop on the arms, forearms, thighs and occasionally on the abdomen. His only medication is Vitamin-D but when he held this because he ran out for about two months, there was no change in the frequency or intensity of the itchy red papules. The patient has been using the Betamethasone Dipropionate Cream which seems to help with the old sites but new ones keep on coming. Physical examination reveals a pleasant 25-year-old who today has a well healed punch biopsy site on the right dorsal forearm. He has one new site on the left dorsal forearms but otherwise seems to be relatively quiescent today. Assessment & Plan: Hypersensitivity reaction of unclear allergen/precipitant. a. Patient is not taking any other medications, nutritional supplements, et cetera. b. Would like to rule out the possibility of a fairly odd allergic contact dermatitis and I would like to see him to see Dr. Alford for her opinion of this and whether patch testing would be useful. Explained the patch testing procedure to patient. c. In the meantime may continue with p.r.n. applications of the Betamethasone Dipropionate Cream to affected areas. May continue to use Lac-Hydrin p.r.n. to affected areas. He has not been using this much recently. Copy: MD Sandra Hardwick MD documented in this encounter Plan of Treatment Not on file documented as of this encounter Visit Diagnoses Diagnosis Dermatitis- Primary Contact dermatitis and other eczema, due to unspecified cause documented in this encounter Care Teams Truck Rental Clerk Relationship Specialty Start Date End Date Olya Bauman MD [address] [address] PCP - General 01/29/11 documented as of this encounter
--- OUTSIDE RECORDS SUMMARY | 2023-12-25 15:23 | XMS_ITS | Encounter Summary ---
Author Organization [facility] Address [address] [place] [address] Care Team Providers Care Child Welfare Manager Name Role Phone Olya Bauman MD Primary Care Provider [phone] Reason for Referral * Radiology Services (Routine/Next Available) - Authorization Not Required Specialty Diagnoses / [facility]erred To Contact Diagnoses Pneumonia, unspecified organism Procedures XR CHEST 2 VIEWS Garrett Bowling MD [address] [address] [facility] Referral ID Status Reason Start Date Expiration Date Visits Requested Visits Authorized [id number] Authorization Not Required 03/11/2022 1 1 Reason for Visit * Radiology Services (Routine/Next Available) - Authorization Not Required Specialty Diagnoses / Procedures Referred By [facility] Referred To Contact Diagnoses Pneumonia, unspecified organism Procedures XR CHEST 2 VIEWS Garrett Bowling MD [address] [address] [facility] Referral ID Status Reason Start Date Expiration Date Visits Requested Visits Authorized [id number] Authorization Not Required 03/11/2022 1 1 Encounter Details Date Type Department Care Team (Latest Contact Info) Description 04/07/2022 7:45 EST - 04/07/2022 23:59 EST Hospital Encounter [facility] Xray [address] [place] [address] Pneumonia, unspecified organism Discharge Disposition: Home or Self Care Social History Tobacco Use Types Packs/Day Years [...] No 11/06/2017 documented as of this encounter Medications at Time of Discharge Medication Sig Dispensed Refills Start Date End Date albuterol 90 mcg/actuation inhaler Inhale 2 Puffs as directed every 4 hours as needed for Wheezing. cholecalciferol (VITAMIN D3) 50,000 unit capsule Take 1 Capsule by mouth once a week. losartan (COZAAR) 50 mg tablet Take 1 Tablet by mouth daily. 09/19/2020 omeprazole (PRILOSEC) 20 mg capsule Take 1 Capsule by mouth daily. amoxicillin-clavulanate (AUGMENTIN) 875-125 mg per tablet TAKE ONE TABLET BY MOUTH TWICE A DAY FOR SINUS INFECTION 02/24/2022 11/19/2023 azithromycin (ZITHROMAX) 250 mg tabletIndications:Acute cough Take 2 tablets (500 mg) on day 1, followed by 1 tablet (250 mg) once daily on days 2 through 5. 6 Tablet 03/04/2022 07/07/2023 benzonatate (TESSALON) 100 mg capsule TAKE TWO CAPSULES BY MOUTH THREE TIMES A DAY NEEDED FOR COUGH 02/24/2022 11/19/2023 guaiFENesin-codeine (GUAIFENESIN AC) 100-10 mg/5 mL liquidIndications:Acute cough Take 5-10 mL by mouth 4 times daily as needed for Cough. Daily Max: 40 mL 120 mL 03/04/2022 11/19/2023 documented as of this encounter Discharge Disposition Disposition Code Departure Means Destination Home or Self Care documented in this encounter Plan of Treatment Not on file documented as of this encounter Procedures Procedure Name Priority Date/Time Associated Diagnosis Comments XR CHEST 2 VIEWS Routine 04/07/2022 7:57 EST Pneumonia, unspecified organism documented in this encounter Results * XR CHEST 2 VIEWS (04/07/2022 7:57 EST) Anatomical Region Laterality Modality Computed Radiogr aphy 04/07/2022 8:12 EST Impressions 04/07/2022 8:12 EST 1. No acute cardiopulmonary disease detected. Narrative 04/07/2022 8:12 EST INDICATION: Pneumonia, unspecified organism TECHNIQUE: ??Chest, PA and lateral views COMPARISON: 03/04/2022. FINDINGS: The lungs are clear. The cardiomediastinal silhouette and pulmonary vessels are ??within normal limits. No pleural effusion or pneumothorax is seen. Procedure Note Ajith Ralph MD - 04/07/2022 INDICATION: Pneumonia, unspecified organism TECHNIQUE: Chest, PA and lateral views COMPARISON: 03/04/2022. FINDINGS: The lungs are clear. The cardiomediastinal silhouette andpulmonary vessels are within normal limits. No pleural effusion orpneumothorax is seen. IMPRESSION 1. No acute cardiopulmonary disease detected. Garrett Bowling MD IMG DIAGNOSTIC IMAGI NG ORDERABLES documented in this encounter Visit Diagnoses Diagnosis Pneumonia, unspecified organism documented in this encounter Care Teams Child Welfare Manager Relationship Specialty Start Date End Date Olya Bauman MD [address] [place] [address] PCP - General 11/05/17 07/06/23 documented as of this encounter
--- OUTSIDE RECORDS SUMMARY | 2023-12-25 15:23 | XMS_ITS | Encounter Summary ---
Author Organization [facility] Address [facility] [place] [address] Care Team Providers Care Board Machine Set Up Operator Name Role Phone Olya Bauman MD Primary Care Provider [phone] Encounter Details Date Type Department Care Team (Late st Contact Info) Description 09/06/2014 1:00 PM EDT - 09/06/2014 1:30 PM EDT Surgery [place] [id number] Jacob Jaffe MD [facility] [address] [place] [address] UPPER GASTROINTESTINAL ENDOSCOPY,WITH BIOPSY SINGLE OR MULTIPLE (WRVU 2.39) Social History Tobacco Use Types Packs/Day Years Used Date Smoking Tobacco: Never Alcohol Use Standard Drinks/Week Comments Yes 0 (1 standard drink = 0.6 oz pur e alcohol) Occasional Sex and Gender Information Value Date Recorded Sex Assigned at Not on file Gender Identity Not on file Sexual Orientation Not on file documented as of this encounter Last Filed Vital Signs Vital Sign Reading Time Taken Comments Blood Pressure 132/84 09/06/2014 1:02 PM EDT Pulse 71 09/06/2014 1:02 PM EDT HR ju mps from 70's to 60's to 50's to 70's Temperature - - Respiratory Rate 16 09/06/2014 1:02 PM EDT Oxygen Saturation 99% 09/06/2014 1:02 PM EDT Inhaled Oxygen Concentration - - Weight - - Height - - Body Mass Index - - documented in this encounter Discharge Instructions * Discharge Instructions* Ruthann Encarnacion RN - 09/06/2014 1:02 PM EDT UPPER GI ENDOSCOPY with Woodall PH Capsule WHAT TO EXPECT AFTER THE PROCEDEURE After the test you may feel a little more gassy or bloated than usual. This is normal. ACTIVITY Because of the sedation that you recieved Your judgement and reaction time are affected ?? Go home and rest quietly for the remainder of the day. You may resume your normal activities tomorrow. ?? Change from one position to the next slowly. You may loose your balance unexpectedly. ?? Be careful on stairs, as you may be unsteady on your feet. FOR THE NEXT 24 HRS ?? DO NOT DRIVE OR OPERATE ANY MACHINERY ?? DO NOT DRINK ALCOHOLIC BEVERAGES ?? DO NOT SIGN LEGAL DOCUMENTS or make important decisions ?? If you are a smoker: DO NOT SMOKE WHILE YOU ARE ALONE Diet ?? Start by eating small portions of foods that ordinarily won't upset your stomach. Be gentle withwhat you choose to start with. ?? Drink plenty of fluids ( unless otherwise told not to) Medications ?? You may have a mild sore throat. Ice chips, popsicles, over- the-counter throat lozenges or spaymay help numb your throat. This procedure should not cause a fever. ?? You may experience some chest discomfort that may or may not get worse with swallowing. If this happens try drinking a warm liquid which will help relax the esophagus. Or use pain medicine that you normally would use ( Tylenol, advil ...). Peppermint tea may also be useful. This discomfort usually passes after 24-48 hrs. Other Instructions Be sure to carry your hydro technician within 3 feet at all times . Follow the instructions that were givento you along with your diary. IV SITE may get red or tender. This is normal. You may use warm compresses 20 minutes at a time on and off for the next day or so. If the tenderness +/or redness increases or foul drainage and a red streak occurs, please contact your PCP WHEN SHOULD YOU CALL FOR HELP? Call 911 anytime you think that you need emergency care. For example, call if: You passed out (lost consciousness). You cough up blood. You vomit blood or what looks like coffee grounds. You pass maroon or very bloody stools. Call your doctor now or seek immediate medical attention if: Severe chest pain that gets worse with swallowing You have trouble swallowing. You have belly pain. Your stools are black or tarlike or have streaks of blood. You are sick to your stomach or cannot keep fluids down. Watch closely for changes in your health, and be sure to contact your doctor IF Your throat still hurts after a day or two You do not get better as expected. [facility] [phone] 8a-5p Same Day Endo [phone] 7a-8p Otherwise contact [phone] and ask to speak to the curtain feller blindstitch manager business continuity Kylee Riggins RN [phone] if any problems with hydro technician Follow-up care is a hope part of your treatment and safety. Be sure to make and go to all appointments, and call your doctor if you are having problems. Instructions have been reviewed and patient expresses understanding * Patient Instructions* Jacob Jaffe MD - 09/06/2014 12:56 PM EDT Please see Recommendations in the Provation procedure report which is documented in the procedural note in [facility]. documented in this encounter Medications at Time of Discharge Medication Sig Dispensed Refills Start Date End Date albuterol (PROVENTIL HFA;VENTOLIN HFA;PROAIR) 90 mcg/actuation HFA Aerosol Inhaler Inhale 2 puffs into the lungs every 4 hours as needed for Wheezing. Use with spacer ERGOCALCIFEROL, VITAMIN D2, (VITAMIN D ORAL) Take by mouth. dexlansoprazole (DEXILANT) 60 mg CpDM Take 60 mg by mouth daily. ACETYLCYSTEINE (P-KCGXHP-W-CYSTEINE MISC) by Mis.(Non-Drug; Combo Route) route. 10/17/2014 betamethasone dipropionate (DIPROLENE) 0.05 % cream Apply topically 2 times daily. 10/17/2014 ammonium lactate (LAC-HYDRIN) 12 % lotion Apply topically as needed. 10/17/2014 documented as of this encounter H&P Notes * Jacob Jaffe MD - 09/06/2014 12:31 PM EDT Gastroenterology and Hepatology Pre-Procedure History and Physical Exam Procedure: EGD: and Woodall placement Indication: GERD Patient Active Problem List Diagnosis Code ??? Ichthyosis vulgaris 757.1 ??? Pruritus 698.9 ??? Dermatitis 692.9 ??? Esophageal reflux 530.81 EXAM: HEENT: Airway examined, oropharynx clear Mallampati Score: I (soft palate, uvula, fauces, tonsillar pillars visible) LUNGS: Clear to auscultation HEART: Regular rate and rhythm, normal S1, S2 ABDOMEN: Normal bowel sounds, soft, non tender, non distended, A/P Proceed with the planned endoscopic procedure. ASA 1 - Normal health patient Sedation Plan: moderate (conscious sedation) Risks and benefits of the procedure explained to the patient. Consent signed. documented in this encounter Plan of Treatment Not on file documented as of this encounter Procedures Procedure Name Priority Date/Time Associated Diagnosis Comments SURGICAL PATHOLOGY REPORT Routine 09/06/2014 12:59 PM EDT SPECIMEN TO PATHOLOGY Routine 09/06/2014 12:59 PM EDT SPECIMEN TO PATHOLOGY Routine 09/06/2014 12:59 PM EDT UPPER GASTROINTESTINAL ENDOSCOPY,WITH BIOPSY SINGLE OR MULTIPLE (WRVU 2.39) 09/06/2014 12:34 PM EDT Gastroesophageal reflux disease without esophagitis UPPER GI ENDOSCOPY Routine 09/06/2014 12 :15 PM EDT documented in this encounter Results * Surgical Pathology Report (09/06/2014 12:59 PM EDT) Final Diagnosis ? [facility] ? Provider: ?? JACOB JAFFE ?? Pt. Name: ?? LUZ ELENA JON ? Acc #: ?[id number] ?Pt. ? Col Date: ?? 09/06/2014 ? /Sex: ?1985,(29 years),Male ? Rec Date: ?? 09/06/2014 ? LOC: ?4T ? SURGICAL PATHOLOGY ? ---Pathologic Diagnosis--- ? A - 38 cm, biopsy: ? 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 ? No dysplasia is seen. ? B - 35 cm, biopsy: ? Squamous esophageal and cardiac mucosa with metaplastic goblet cells, ? consistent with Araiza metaplasia if supported by corresponding ? endoscopic findings. ? No dysplasia is seen. ? CR-0 ? 09/07/14 ? BJM ? 09/07/14 Verified by: ? Melba Cruz MD ? Pathologist ? (Electronic Signature) ? The attending pathologist whose signature appears on this report has ? reviewed all diagnostic slides and has edited the gross and/or ? microscopic portion of the report in rendering the final pathologic ? diagnosis. ? ---Gross Description--- ? A - Labeled/Fixative: Biopsies from 38 cm, formalin. ? Quantity/Size: Four, ranging from 0.3-0.7 cm. ? Tissue Description: Soft, pink tissues. ? Sections/Processi ng: (T1) ? B - Labeled/Fixative: Biopsies from 35 cm, formalin. ? Quantity/Size: Four, ranging from 0.1-0.5 cm. ? Tissue Description: Soft, pink tissues. ? Sections/Processi ng: (T1) ??aml ? ---Clinical Information--- ? Specimen Submitted: ? A - Biopsies from 38 cm ? B - Biopsies from 35 cm ? Clinical History: ? 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 [facility] ? Provider: ?? JACOB JAFFE ?? Pt. Name: ?? LUZ ELENA JON ? Acc #: ?[id number] ?Pt. ? Col Date: ?? 09/06/2014 ? /Sex: ?1985,(29 years),Male ? Rec Date: ?? 09/06/2014 ? LOC: ?4T ? SURGICAL PATHOLOGY ? Clinical Diagnosis: ? Same 09/07/2014 2:06 PM EDT [facility] GI Biopsy 09/06/2014 12:5 9 PM EDT 09/06/2014 12:59 PM EDT GI Biopsy 09/06/2014 12:5 9 PM EDT 09/06/2014 12:59 PM EDT Jacob Jaffe MD PATHOLOGY/CYTOLOGY O RDERABLES Performing Organization Address City/State/[facility] Co de Phone Number [facility] [place] [address] * Specimen to Pathology (surgical or derm) (09/06/2014 12:59 PM EDT) AP Specimen 09/06/2014 12:5 9 PM EDT 09/06/2014 12:59 PM EDT Narrative [facility] - 09/06/2014 12:59 PM EDT Specimen requisition ordered. ??Separate Pathology report to follow Jacob Jaffe MD PATHOLOGY/CYTOLOGY O RDERASHARYN [facility] * Specimen to Pathology (surgical or derm) (09/06/2014 12:59 PM EDT) AP Specimen 09/06/2014 12:5 9 PM EDT 09/06/2014 12:59 PM EDT Narrative [facility] - 09/06/2014 12:59 PM EDT Specimen requisition ordered. ??Separate Pathology report to follow Jacob Jaffe MD PATHOLOGY/CYTOLOGY O ANDREW [facility] * UPPER GI ENDOSCOPY (09/06/2014 12:15 PM EDT) UPPER GI ENDOSCOPY [facility] Endoscopy Patient Name: Luz Elena Jon ? Procedure Date: 09/06/2014 12:15 PM ? N: [id number] ? Date of : 1985 ? Age: 29 ? Order #: [id number] ? Procedure: ? Upper GI endoscopy Indications: ? Heartburn, Suspected ? gastro-esophageal reflux disease Providers: ? Jacob Jaffe MD, Omaira Crouch, ? RN, Venkat Lieberman, Apparel Patternmaker Referring MD: ?Olya Bauman MD Medicines: ? Midazolam 6 mg IV, Fentanyl 250 ? micrograms IV, Benzocaine spray Complications: ? No immediate complications. Procedure: ? Pre-Anesthesia Assessment: ? - ASA Grade Assessment: I - A normal, ? healthy patient. ? - CV Examination: normal. ? - Mental Status Examination: alert ? and oriented. ? - Respiratory Examination: clear to ? auscultation. ? The procedure, indications, benefits, ? risks and alternatives were explained ? to the patient. Specifically ? discussed were potential ? complications including, but not ? limited to, bleeding, perforation, ? infection, missing a cancer, and ? adverse medication reactions. The ? Endoscope was introduced through the ? mouth, and advanced to the second ? part of duodenum. The patient ? tolerated the procedure well. The ? upper GI endoscopy was accomplished ? without difficulty. The patient ? tolerated the procedure well. ? Findings: ? There was a hiatal hernia extending from 38 to 45 cm. ? There was apparent columnar lined tubular esophagus ? extending from 38 to 36 cm circumferentially and then ? with several tongues extending to 34 cm. Biopsies ? from four quadrants taken from 38 cm and 35 cm. ? The stomach was otherwise normal. ? The duodenum was normal to the second portion. ? Following withdrawal of the scope, the Woodall pH probe ? was placed at 30 cm. ? Impression: ?Hiatal hernia and probable Barretts ? esophagus. Recommendation: ?Proceed with Woodall pH probe. ? Jacob Jaffe MD 09/06/2014 1:03 PM This report has been signed electronically. Number of Addenda: 0 Note Initiated On: 09/06/2014 12:15 PM PROVATION 09/06/2014 12:1 5 PM EDT Olya Bauman MD GENERAL SURGICAL ORD ERABLES PROVATION documented in this encounter Visit Diagnoses Diagnosis Gastroesophageal reflux disease without esophagitis Esophageal reflux documented in this encounter Administered Medications Inactive Administered Medications - up to 3 most recent administrations Medication Order MAR Action Action Date Dose Rate Site benzocaine (TOPEX) 20 % oral spray ONCE PRN, Starting on Thu09/06/14 at 1236, Until Thu09/06/14 at 1810, Intra-Operative (Intra-Procedure) Given 09/06/2014 12:36 PM EDT 4 each fentaNYL 50 mcg/mL multi-dose injection ONCE PRN, Starting on Thu09/06/14 at 1236, Until Thu09/06/14 at 1810, Intra-Operative (Intra-Procedure), Routine Given 09/06/2014 12:46 PM EDT 50 mcg Given 09/06/2014 12:42 PM EDT 50 mcg Given 09/06/2014 12:39 PM EDT 50 mcg midazolam (PF) (VERSED) 1 mg/mL multi-dose injection ONCE PRN, Starting on Thu09/06/14 at 1236, Until Thu09/06/14 at 1810, Intra-Operative (Intra-Procedure), Routine Given 09/06/2014 12:49 PM EDT 1 mg Given 09/06/2014 12:45 PM EDT 1 mg Given 09/06/2014 12:42 PM EDT 1 mg ondansetron (ZOFRAN-ODT) oral disintegrating tablet 4 mg 4 mg, Oral, EVERY 8 HOURS PRN, Starting on Thu09/06/14 at 1354, Until Thu09/06/14 at 1810, Nausea, Endoscopy (Recovery-Hospital Unit), Routine Given 09/06/2014 1:50 PM EDT 4 mg documented in this encounter Active and Recently Administered Medications Times are shown in EDT. PRN Medication Order 09/04/2014 09/05/2014 09/06/2014 benzocaine (TOPEX) 20 % oral spray (CANCELED) ONCE PRN, Starting on Thu09/06/14 at 1236, Until Thu09/06/14 at 1810, Intra-Operative (Intra-Procedure) 1236 (Given - Provid er: Jacob Jaffe MD) fentaNYL 50 mcg/mL multi-dose injection (CANCELED) ONCE PRN, Starting on Thu09/06/14 at 1236, Until Thu09/06/14 at 1810, Intra-Operative (Intra-Procedure), Routine 1236 (Given - Provid er: Omaira Crouch RN)1239 (Given - Provider: Omaira Crouch RN)1242 (Given - Provider: Omaira Crouch RN)1246 (Given - Provider: Omaira Crouch RN) midazolam (PF) (VERSED) 1 mg/mL multi-dose injection (CANCELED) ONCE PRN, Starting on Thu09/06/14 at 1236, Until Thu09/06/14 at 1810, Intra-Operative (Intra-Procedure), Routine 1236 (Given - Provid er: Omaira Crouch RN)1239 (Given - Provider: Omaira Crouch RN)1242 (Given - Provider: Omaira Crouch RN)1245 (Given - Provider: Omaira Crouch, MARYANNE)1249 (Given - Provider: Omaira Crouch RN) ondansetron (ZOFRAN-ODT) oral disintegrating tablet 4 mg (CANCELED) 4 mg, Oral, EVERY 8 HOURS PRN, Starting on Thu09/06/14 at 1354, Until Thu09/06/14 at 1810, Nausea, Endoscopy (Recovery-Hospital Unit), Routine 1350 (Given - Provid er: Ruthann Encarnacion RN) documented in this encounter Care Teams Board Machine Set Up Operator Relationship Specialty Start Date End Date Olya Bauman MD [address] [place] [id number] PCP - General 01/29/11 documented as of this encounter
--- OUTSIDE RECORDS SUMMARY | 2023-12-25 15:23 | XMS_ITS | Encounter Summary ---
Author Organization [facility] Address [address] [place] [address] Care Team Providers Care College Tutor Name Role Phone Juana Olmedo NP Primary Care Provider [phone] Encounter Details Date Type Department Care Team (Latest Contact Info) Description 07/07/2023 Travel Social History Tobacco Use Types Packs/Day Years [...] documented as of this encounter Visit Diagnoses Not on filedocumented in this encounter Additional Health Concerns Infection Onset Date Last Indicated Resolved Time R/O COVID-19 07/07/2023 07/07/2023 07/07/2023 22:0 5 EDT Rule-Out C. difficile 07/07/2023 07/07/20232023 22:16 EDT documented as of this encounter Care Teams College Tutor Relationship Specialty Start Date End Date Juana Olmedo NP [address] [place] [phone] PCP - General 07/07/23 documented as of this encounter
--- OUTSIDE RECORDS SUMMARY | 2023-12-25 15:23 | XMS_ITS | Encounter Summary ---
Author Organization [facility] [place] [address] Care Team Providers Care Gauger Chief Delivery Name Role Phone Olya Bauman MD Primary Care Provider Reason for Visit * Reason Comments Rash Encounter Details Date Type Department Care Team (Late st Contact Info) Description 03/20/2011 9:15 AM EST Office Visit Dermatology [facility] [address] [place] [address] Ministerio Khanna MD [address] [facility] [place] [address] Ichthyosis vulgaris (Primary Dx); Pruritus Social History Tobacco Use Types Packs/Day Years Used Date Smoking Tobacco: Never Sex and Gender Information Value Date Recorded Sex Assigned at Not on file Gender Identity Not on file Sexual Orientation Not on file documented as of this encounter Progress Notes * Ministerio Khanna MD - 03/20/2011 9:57 AM EST Problem: Pruritic papules. 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 He uses Lac-Hydrin for this. The patient states that the papules are somewhat itchy. In the shower it makes them itch more. His only medications are Vitamin-D. Physical examination reveals a pleasant 25-year-old with fairly clear-cut mild but diffuse ichthyosis vulgaris most prominent on the lower extremities and on his back. Over the dorsal forearms he has a few ill-defined erythematous papules most of which appear to be healing but one new one over the last 2-3 days that is without blister or pustule formation, without scab or excoriation. It is on the right dorsal forearm. Assessment & Plan: Erythematous papules of unclear etiology, slightly pruritic of one year's duration. a. These are transient. b. Today 4mm punch biopsy was taken of right dorsal forearm site. Closure with 4-0 ethilon. c. Wound care instructions and supplies given. d. Submitted for pathologic analysis to [facility]. e. RTC in 10-14 days for suture removal and biopsy results. f. In the meantime the patient given prescription for Betamethasone Dipropionate Cream which he can apply p.r.n. to affected areas. 30 mg dispensed with no refills. Ichthyosis vulgaris. a. Continue Lac-Hydrin Cream. Copy: Olya Bauman MD documented in this encounter Plan of Treatment Not on file documented as of this encounter Visit Diagnoses Diagnosis Ichthyosis vulgaris- Primary Ichthyosis congenita Pruritus Unspecified pruritic disorder documented in this encounter Care Teams Gauger Chief Delivery Relationship Specialty Start Date End Date Olya Bauman MD [address] [place] [address] PCP - General 01/29/11 documented as of this encounter
--- OUTSIDE RECORDS SUMMARY | 2023-12-25 15:23 | XMS_ITS | Encounter Summary ---
Author Organization Replaced By [facility] [place] [address] Care Team Providers Care Press Reader Name Role Phone Olya Bauman MD Primary Care Provider [phone] Reason for Visit * Reason Comments Allergy Testing Encounter Details Date Type Department Care Team (Late st Contact Info) Description 08/11/2011 9:30 AM EDT [place] [address] Encounter for allergy testing (Primary Dx) Social History Tobacco Use Types Packs/Day Years Used Date Smoking Tobacco: Never Sex and Gender Information Value Date Recorded Sex Assigned at Not on file Gender Identity Not on file Sexual Orientation Not on file documented as of this encounter Progress Notes * Marietta Saunders LPN - 08/11/2011 3:21 PM EDT Shaka Liu 1985, 25 y.o. Patch testing visit. Patch test application. Dr. Alford ordered patch tests. Written and verbal instructions reviewed with the patient. Questions answered. Patient verbalizes good understanding of the procedure. I have documented the location of the test sites on the allergenpatch data sheet. I instructed the patient on expectations, activity restrictions (no showering the back, no getting the back wet). The patient had an opportunity to ask questions. This patient will return for scheduled visit on Thursday and Thursday. 70 number of NACDG allergens applied. 10 number of supplemental series patches applied. documented in this encounter Plan of Treatment Scheduled Orders Name Type Priority Associated Diagnoses Orde r Schedule PATCH TEST (SKIN) Procedures Routine Encounter for allergy testing Ordered: 08/11/2011 documented as of this encounter Visit Diagnoses Diagnosis Encounter for allergy testing- Primary Diagnostic skin and sensitization tests documented in this encounter Care Teams Press Reader Relationship Specialty Start Date End Date Olya Bauman MD [address] [place] [address] PCP - General 01/29/11 documented as of this encounter
--- OUTSIDE RECORDS SUMMARY | 2023-12-25 15:23 | XMS_ITS | Encounter Summary ---
Author Organization [facility] Address [place] [id number] Care Team Providers Care Racecar Driver Name Role Phone Olya Bauman MD Primary Care Provider [phone] Encounter Details Date Type Department Care Team (Late st Contact Info) Description 2011 [place] [address] Sandra Alford MD [facility] [place] [address] Social History Tobacco Use Types Packs/Day Years Used Date Smoking Tobacco: Never Sex and Gender Information Value Date Recorded Sex Assigned at Not on file Gender Identity Not on file Sexual Orientation Not on file documented as of this encounter Miscellaneous Notes * Telephone Encounter - Marietta Saunders LPN - 2011 1:28 PM EDT Call to pt. Reviewed photos sent to us by pt. Does not look like an allergic reaction. Looks like a scratch. Reviewed plan of care with pt. Per dr. alford. documented in this encounter Plan of Treatment Not on file documented as of this encounter Visit Diagnoses Not on filedocumented in this encounter Care Teams Racecar Driver Relationship Specialty Start Date End Date Olya Bauman MD [address] [place] [address] PCP - General 01/29/11 documented as of this encounter
--- OUTSIDE RECORDS SUMMARY | 2023-12-25 15:23 | XMS_ITS | Encounter Summary ---
Author Organization [facility] Address [address] [place] [address] Care Team Providers Care [employer] D[employer] Steward/Stewardess Name Role Phone Shara Juana ROLAND Primary Care Provider [phone] Reason for Visit * Reason Comments Emesis Patient has been vom iting since Thursday and has also had liquid stool. He is unable to keep fluids down and febrile at home and sweating and endorsing lower abdominal pain Encounter Details Date Type Department Care Team (Late st Contact Info) Description 07/07/2023 20:40 EDT - 07/07/2023 22:59 EDT Emergency [facility] Emergency Department [address] [place], [place] [address] Ashok Moon MD [address] [place] [address] Acute viral syndrome (Primary Dx) Discharge Disposition: Home or Self Care Social [...] Sign Reading Time Taken Comments Blood Pressure 135/79 07/07/2023 2200 EDT Pulse 104 07/07/20232030 EDT Temperature 39.5 ??C (103.1 ??F) 07/07/20232030 EDT Respiratory Rate 21 07/07/20232199 EDT Oxygen Saturation 97% 07/07/20232030 EDT Inhaled Oxygen Concentration - - Weight [...] No 11/06/2017 documented as of this encounter Discharge Instructions * Discharge Instructions* Ashok Moon MD - 07/07/2023 22:49 EDT You were seen in the emergency department today for fevers, body aches, nausea and vomiting. Thankfully your blood work was all very reassuring and did not show any immediately concerning findings. Your test for COVID, flu, and RSV were all negative. Please continue to push fluids and do your best to stay hydrated. I have given you a short course of Zofran to continue taking as needed for nausea. Do not take more than 1 pill every 8 hours. Please call your primary care doctor tomorrow to make a follow-up appointment. If you experience new or worsening symptoms please return to the emergency department to be reevaluated. * Attachments The following attachments cannot be sent through Care Everywhere. * Viral Infections (Kazakh) documented in this encounter Medications at Time [...] A DAY FOR SINUS INFECTION 02/24/2022 11/19/2023 benzonatate (TESSALON) 100 mg capsule TAKE TWO CAPSULES BY MOUTH THREE TIMES A DAY NEEDED FOR COUGH 02/24/2022 11/19/2023 guaiFENesin-codeine (GUAIFENESIN AC) 100-10 mg/5 mL liquidIndications:Acute cough Take 5-10 mL by mouth 4 times daily as needed for Cough. Daily Max: 40 mL 120 mL 03/04/2022 11/19/2023 documented as of this encounter Discharge Disposition Disposition Code Departure Means Destination Comment s Home or Self Halfway documented in this encounter ED Notes * Ashok Moon MD - 07/07/20232017 EDT Emergency Department Visit Medical Decision Making Relevant Data as of 07/08/23 1325 e July 07, 2023 2210 The patient is a 37-year-old male, history of asthma who presents to the emergency department with 3 days of fever, chills, myalgias, cough, and nausea, vomiting, diarrhea. He arrives appearing uncomfortable, febrile to 103.1 ??F, slightly tachycardic but otherwise well-perfused. Physical examis overall fairly unremarkable, significant for faint crackles at lung base, tender lower abdomen without rebound or guarding. Patient treated with 1 L IV fluid, 1 g acetaminophen IV, 15 mg Toradol, 4 mg Zofran. Laboratory testing ordered and reviewed, significant for CBC with mild thrombocytopenia, CMP without acutely concerning abnormality, lactic acid 1.2, viral studies negative. [NR] Patient reevaluated, reported feeling markedly improved after treatment, and is requesting discharge. Overall, reassuring workup and I believe the patient is stable and appropriate for outpatient follow-up. Supportive measures were advised and strict return precautions were discussed including new or worsening symptoms. Discharged in stable condition with a steady gait. Patient provided with to go pack of Zofran with appropriate medication precautions. Relevant Data User Index [NR] Ashok Moon MD Medical Decision Making Diagnoses considered in the evaluation of this patient's complaints include: Viral syndrome, mononucleosis, influenza A or B, pneumonia, upper respiratory infection, sinusitis, bronchitis, acute myocardial infarction, pulmonary emboli, rheumatological conditions or collagen-vascular diseases. Most of these conditions were excluded clinically or by specific testing, such as pneumonia or influenza,and the most likely cause remains an unknown viral syndrome. Problems Addressed: Acute viral syndrome: complicated acute illness or injury Amount and/or Complexity of Data Reviewed Labs: ordered. Decision-making details documented in ED Course. Radiology: ordered and independent interpretation performed. Details: X-ray on my independent interpretation shows no acute pneumonia or pneumothorax. Risk OTC drugs. Prescription drug management. Final diagnoses: Acute viral syndrome Disposition: Discharged Chief complaint: Fever, chills, myalgias HPI Shaka Liu is a 37 y.o. male with a history of asthma who presents to the emergency departmentfor fever, chills, myalgias. Patient states onset of symptoms was Thursday, approximately 3 days ago in the morning. He felt chilled, hot, sweaty, and developed a productive cough of green and luna sputum. Over the next 2 days he developed worsening symptoms as well as lower abdominal discomfort and a few episodes of watery diarrhea, as well as nausea and vomiting. He has been unable to tolerate p.o. today. He denies chest pain, rash, swelling, orthopnea. History was provided by: Patient Records reviewed include: None Patient's pertinent PMH, FH, SH were reviewed and edited as necessary. Nursing notes reviewed. A medical screening exam was performed. Physical Exam BP 135/79 Pulse 104 Temp (!) 39.5 ??C (103.1 ??F) (Oral) Resp 21 SpO2 97% Physical Exam Vitals and nursing note reviewed. Constitutional: General: He is not in acute distress. Appearance: He is normal weight. He is ill-appearing. He is not toxic-appearing or diaphoretic. HENT: Head: Normocephalic and atraumatic. Right Ear: External ear normal. Left Ear: External ear normal. Nose: Nose normal. No congestion or rhinorrhea. Mouth/Throat: Mouth: Mucous membranes are dry. Pharynx: Oropharynx is clear. Eyes: General: No scleral icterus. Right eye: No discharge. Left eye: No discharge. Extraocular Movements: Extraocular movements intact. Conjunctiva/sclera: Conjunctivae normal. Pupils: Pupils are equal, round, and reactive to light. Cardiovascular: Rate and Rhythm: Regular rhythm. Tachycardia present. Pulses: Normal pulses. Heart sounds: Normal heart sounds. No murmur heard. Pulmonary: Effort: Pulmonary effort is normal. No respiratory distress. Breath sounds: No stridor. Rales present. No wheezing or rhonchi. Comments: Faint rales at base of left lung Chest: Chest wall: No tenderness. Abdominal: General: Abdomen is flat. Bowel sounds are normal. There is no distension. Palpations: Abdomen is soft. There is no mass. Tenderness: There is abdominal tenderness. There is no guarding or rebound. Comments: Tenderness in lower abdomen without focality, without rebound or guarding Musculoskeletal: General: No swelling, tenderness, deformity or signs of injury. Normal range of motion. Right lower leg: No edema. Left lower leg: No edema. Skin: General: Skin is warm and dry. Capillary Refill: Capillary refill takes less than 2 seconds. Coloration: Skin is not jaundiced or pale. Findings: No bruising, erythema, lesion or rash. Neurological: General: No focal deficit present. Mental Status: He is alert and oriented to person, place, and time. Mental status is at baseline. Cranial Nerves: No cranial nerve deficit. Sensory: No sensory deficit. Motor: No weakness. Coordination: Coordination normal. Psychiatric: Mood and Affect: Mood normal. Behavior: Behavior normal. Thought Content: Thought content normal. Judgment: Judgment normal. Procedures Procedures documented in this encounter Plan of Treatment Not on file documented as of this encounter Procedures Procedure Name Priority Date/Time Associated Diagnosis Comments URINE CHEMICAL (DIP) & SEDIMENT (MICRO) WITH REFLEX TO CULTURE STAT 07/07/2023 22:55 EDT XR CHEST PORTABLE 1 VIEW STAT 07/07/2023 21:33 EDT BACTERIAL CULTURE, BLOOD STAT 07/07/2023 21:14 EDT LACTIC ACID WITH REFLEX - USE FOR INITIAL SEPSIS EVALUATION STAT 07/07/2023 20:58 EDT DIFFERENTIAL MANUAL Today 07/07/2023 2 0:50 EDT SARS COV2, FLU A/B, RSV DETECT BY PCR STAT 07/07/2023 20:50 EDT BACTERIAL CULTURE, BLOOD STAT 07/07/2023 20:50 EDT COMPLETE BLOOD COUNT AND DIFFERENTIAL STAT 07/07/2023 20:50 EDT COMPREHENSIVE METABOLIC PANEL (CMP) STAT 07/07/2023 20:50 EDT documented in this encounter Results * (ABNORMAL) UA CHEMICAL & SEDIMENT + REFLEX TO CULTURE (07/07/2023 22:55 EDT) Color UA Yellow Colorless, Yellow 07/07/2023 23:35 [facility] Clarity UA Clear Clear 07/07/2023 23:35 [facility] Glucose UA Negative Negative mg/dL 07/07/2023 23:35 [facility] Bilirubin UA 1+(A) Negative 07/07/2023 23:35 [facility] Ketones UA 2+(A) Negative 07/07/2023 23:35 [facility] Specific [place], Urine 1.020 1.001 - 1.030 07/07/2023 23:35 [facility] Blood UA Negative Negative 07/07/2023 23:35 [facility] Nitrite UA Negative Negative 07/07/2023 23:35 [facility] Leukocyte Esterase UA Negative Negative 07/07/2023 23:35 [facility] Protein UA 1+(A) Negative mg/dL 07/07/2023 23:35 [facility] pH, UA 6.5 <8.5 07/07/2023 23:35 [facility] Urine RBC Count, Manual 0 - 2 0 - 2 Cells/HPF 07/07/2023 23:35 [facility] Urine WBC Count 0 - 3 0 - 3 Cells/HPF 07/07/2023 23:35 EDT [facility] Urine Squamous Count, Manual Few(A) None Seen Cells/HPF 07/07/2023 23:35 EDT [facility] Urine Hyaline Cast Count, Manual <=10 <=10 Casts/LPF 07/07/2023 23:35 EDT [facility] Urine Bacteria Count, Manual Few(A) None Seen Bacteria/HPF 07/07/2023 23:35 EDT [facility] Urobilinogen UA 1.0 0.2-1.0 mg/dL mg/dL 07/07/2023 23:35 EDT [facility] Urine URINE SPECIMEN OBTAINED BY CLEAN CATCH PROCEDURE / Unknown Urine Collect / Unknown 07/07/2023 22:55 EDT 07/07/2023 22:57 EDT Narrative [facility] - 07/07/2023 23:35 EDT Urine Sediment Analysis results are unreliable on urines that are unrefrigerated for >2 hrs or refrigerated >8 hrs. NOTE: Reflex to Urine Culture test is not indicated based on Urine Sediment Analysis results. Ashok Moon MD URINALYSIS ORDERABLE S [facility] [address] [place] [id number] * XR CHEST PORTABLE 1 VIEW (07/07/2023 21:33 EDT) Anatomical Region Laterality Modality Computed Radiogr aphy 07/07/2023 21:1 6 EDT Impressions 07/07/2023 22:43 EDT No definite acute cardiopulmonary disease. If symptoms persist, consider CT for further evaluation. THIS DOCUMENT HAS BEEN ELECTRONICALLY SIGNED BY JAX NEWTON MD FOR ANY QUESTIONS OR CONCERNS REGARDING THIS REPORT PLEASE CALL [facility] AT [phone] Narrative 07/07/2023 22:43 EDT PROCEDURE INFORMATION: Exam: XR Chest Exam date and time: 07/07/2023 9:16 PM Age: 37 years old Clinical indication: Cough; Additional info: Cough, fever, left lung base crackles TECHNIQUE: Imaging protocol: Radiologic exam of the chest. Views: 1 view. COMPARISON: CR XR CHEST 2 VIEWS 05/13/2023 1:22 AM FINDINGS: Limitations: Radiographic technique - mild. Tubes, catheters and devices: Leads overlying chest. Lungs: Mild underinflation. No definite consolidation. Pleural spaces: No significant pleural effusion. No pneumothorax. Heart/Mediastinum: No cardiomegaly. Bones/joints: No displaced fracture. Soft tissues: Unremarkable. Procedure Note Jax Newton MD - 07/07/2023 PROCEDURE INFORMATION: Exam: XR Chest Exam date and time: 07/07/2023 9:16 PM Age: 37 years old Clinical indication: Cough; Additional info: Cough, fever, left lung base crackles TECHNIQUE: Imaging protocol: Radiologic exam of the chest. Views: 1 view. COMPARISON: CR XR CHEST 2 VIEWS 05/13/2023 1:22 AM FINDINGS: Limitations: Radiographic technique - mild. Tubes, catheters and devices: Leads overlying chest. Lungs: Mild underinflation. No definite consolidation. Pleural spaces: No significant pleural effusion. No pneumothorax. Heart/Mediastinum: No cardiomegaly. Bones/joints: No displaced fracture. Soft tissues: Unremarkable. IMPRESSION No definite acute cardiopulmonary disease. If symptoms persist, consider CT for further evaluation. THIS DOCUMENT HAS BEEN ELECTRONICALLY SIGNED BY JAX NEWTON MD FOR ANY QUESTIONS OR CONCERNS REGARDING THIS REPORT PLEASE CALL [facility] [phone] Ashok Moon MD IMG DIAGNOSTIC IMAGI NG ORDERABLES * BACTERIAL CULTURE, BLOOD (07/07/2023 21:14 EDT) Organism ID No Growth at 5 days VITEK SUSCEPTIBILITY 07/12/2023 21:32 EDT [facility] Blood VENOUS BLOOD / Unknown Venipuncture / Unknown 07/07/2023 21:14 EDT 07/07/2023 21:17 EDT Ashok Moon MD MICROBIOLOGY - GENER AL ORDERABLES [facility] [address] [place] [address] * LACTIC ACID WITH REFLEX - USE FOR INITIAL SEPSIS EVALUATION (07/07/2023 20:58 EDT) Lactic Acid 1.2 <=2.0 mmol/L 07/07/2023 21:42 [facility] Blood VENOUS BLOOD / Unknown Venipuncture / Unknown 07/07/2023 20:58 EDT 07/07/2023 21:19 EDT Ashok Moon MD CHEMISTRY & BLOOD GA S ORDERABLES [facility] [address] [place] [address] * (ABNORMAL) DIFFERENTIAL MANUAL (07/07/2023 20:50 EDT) Pathologist [facility] % Neutrophils 56.0 Not Indicated % 07/07/2023 21:21 [facility] % Bands 2.0 Not Indicated % 07/07/2023 21:21 [facility] % Lymphocytes 23.0 Not Indicated % 07/07/2023 21:21 [facility] % Atypical Lymphocytes 6.0 Not Indicated % 07/07/2023 21:21 [facility] % Monocytes 13.0 Not Indicated % 07/07/2023 21:21 [facility] Absolute Neutrophils 5.36 2.20 - 8.85 K/cmm 07/07/2023 21:21 [facility] Absolute Bands 0.19 K/cmm 07/07/2023 21:21 [facility] Absolute Lymphocytes 2.20 1.09 - 3.30 K/cmm 07/07/2023 21:21 [facility] Absolute Atypical Lymphocytes 0.57 K/cmm 07/07/2023 21:21 [facility] Absolute Monocytes 1.24(H) 0.10 - 0.80 K/cmm 07/07/2023 21:21 [facility] Blood VENOUS BLOOD / Unknown Venipuncture / Unknown 07/07/2023 20:50 EDT 07/07/2023 20:54 EDT Ashok Moon MD HEMATOLOGY & PF4 ORD ERABLES Performing Organization Address [facility] Co de Phone Number [facility] [address] [place] [address] * SARS COV2, FLU A/B, RSV DETECT BY PCR (07/07/2023 20:50 EDT) FLU A RNA Result (FLARES) Negative Negative 07/07/2023 22:05 EDT [facility] FLU B RNA Result (FLBRES) Negative Negative 07/07/2023 22:05 EDT [facility] RSV RNA Result (RSVRES) Negative Negative 07/07/2023 22:05 EDT [facility] COVID-19 rt-PCR Result Negative Negative 07/07/2023 22:05 EDT [facility] Comment: The 2019 novel coronavirus (SARS-CoV-2) target nucleic acids are not detected. Performed on the [employer] Instrument Swab NASOPHARYNGEAL STRUCTURE / Unknown Swab / Unknown 07/07/2023 20:50 EDT 07/07/2023 21:26 EDT Ashok Moon MD MICROBIOLOGY - GENER AL ORDERABLES Performing Organization Address [facility] Co de Phone Number [facility] [address] [place] [address] * (ABNORMAL) COMPREHENSIVE METABOLIC PANEL (CMP) (07/07/2023 20:50 EDT) Sodium 139 136 - 145 mmol/L 07/07/2023 21:16 EDT [facility] Potassium 3.9 3.5 - 5.0 mmol/L 07/07/2023 21:16 EDT [facility] Chloride 104 96 - 110 mmol/L 07/07/2023 21:16 EDT [facility] CO2 Total 24 22 - 32 mmol/L 07/07/2023 21:16 EDT [facility] Glucose 101(H) 70 - 99 mg/dl 07/07/2023 21:16 [facility] BUN 17 10 - 26 mg/dL 07/07/2023 21:16 [facility] Creatinine 1.18 0.66 - 1.25 mg/dL 07/07/2023 21:16 [facility] eGFR 82 >60 mL/min/1.7 3m2 07/07/2023 21:16 [facility] Total Protein 7.2 6.3 - 8.2 g/dL 07/07/2023 21:16 [facility] Albumin 4.0 3.4 - 4.9 g/dL 07/07/2023 21:16 [facility] Alkaline Phosphatase 62 38 - 126 U/L 07/07/2023 21:16 [facility] AST 28 15 - 46 U/L 07/07/2023 21:16 [facility] ALT 27 <50 U/L 07/07/2023 21:16 [facility] Bilirubin, Total 1.2 <1.4 mg/dL 07/07/19 21:16 [facility] Calcium 8.5 8.5 - 10.5 mg/dL 07/07/2023 21:16 [facility] Albumin/Globulin Ratio 1.3 1.0 - 2.5 07/07/2023 21:16 [facility] Anion Gap 11 5 - 14 mmol/L 07/07/2023 21:16 [facility] Blood VENOUS BLOOD / Unknown Venipuncture / Unknown 07/07/2023 20:50 EDT 07/07/2023 20:54 EDT Ashok Moon MD CHEMISTRY & BLOOD GA S ORDERABLES [facility] [address] [place] [address] * (ABNORMAL) COMPLETE BLOOD COUNT AND DIFFERENTIAL (07/07/2023 20:50 EDT) WBC 9.57 4.00 - 10.40 K/cmm 07/07/2023 21:21 [facility] RBC 5.31 4.36 - 5.78 M/cmm 07/07/2023 21:21 [facility] Hemoglobin 14.9 13.8 - 17.3 g/dL 07/07/2023 21:21 [facility] HCT 43.3 39.5 - 50.2 % 07/07/2023 21:21 [facility] MCV 82 81 - 95 fL 07/07/2023 21:21 [facility] MCH 28.1 27.6 - 33.0 pg 07/07/2023 21:21 [facility] MCHC 34.4 32.8 - 36.4 g/dL 07/07/2023 21:21 [facility] RDW-CV 13.1 <14.2 % 07/07/2023 21:21 [facility] RDW-SD 38.9 <46.0 fl 07/07/2023 21:21 [facility] PLT 134(L) 141 - 377 K/cmm 07/07/2023 21:21 [facility] MPV 11.3 9.5 - 12.7 fL 07/07/2023 21:21 [facility] Type of Differential: Manual 07/07/2023 21:21 [facility] Blood VENOUS BLOOD / Unknown Venipuncture / Unknown 07/07/2023 20:50 EDT 07/07/2023 20:54 EDT Ashok Moon MD PACKAGES & DNA PROBE ORDERABLES [facility] [address] [place] [id number] * BACTERIAL CULTURE, BLOOD (07/07/2023 20:50 EDT) Organism ID No Growth at 5 days VITEK SUSCEPTIBILITY 07/12/2023 21:01 EDT [facility] Blood VENOUS BLOOD / Unknown Venipuncture / Unknown 07/07/2023 20:50 EDT 07/07/2023 20:54 EDT Ashok Moon MD MICROBIOLOGY - GENER AL ORDERABLES [facility] [address] [place] [address] documented in this encounter Visit Diagnoses Diagnosis Acute viral syndrome- Primary Unspecified viral infection, in conditions classified elsewhere and of unspecified site documented in this encounter Administered Medications Inactive Administered Medications - up to 3 most recent administrations Medication Order MAR Action Action Date Dose Rate Site acetaminophen (OFIRMEV) IV solution 1,000 mg 1,000 mg, intravenous, NOW X1, 1 dose, On Thu07/07/23 at 2115, STAT Given 07/07/2023 21:11 EDT 1,000 mg ketOROLAC (TORADOL) injection 15 mg 15 mg, intravenous, NOW X1, 1 dose, On Thu07/07/23 at 2115, STAT Given 07/07/2023 21:10 EDT 15 mg lactated ringers BOLUS 1,000 mL 1,000 mL, intravenous, NOW X1, 1 dose, On Thu07/07/23 at 2100, Routine New Bag 07/07/2023 21:00 EDT 1,000 mL ondansetron (PF) (ZOFRAN) injection 4 mg 4 mg, intravenous, NOW X1, 1 dose, On Thu07/07/23 at 2115, STAT Given 07/07/2023 21:10 EDT 4 mg ondansetron 4 mg ODT tab STARTER PACK 1 Package, oral, NOW X1, 1 dose, On Thu07/07/23 at 2315, STAT Given 07/07/2023 22:57 EDT 1 Package documented in this encounter Discontinued Medications Medication Sig Discontinue Reason Start Date End Da te azithromycin (ZITHROMAX) 250 mg tabletIndications:Acute cough Take 2 tablets (500 mg) on day 1, followed by 1 tablet (250 mg) once daily on days 2 through 5. 03/04/2022 07/07/2023 documented as of this encounter Active and Recently Administered Medications Times are shown in EDT. Scheduled Medication Order 07/05/2023 07/06/2023 07/07/2023 acetaminophen (OFIRMEV) IV solution 1,000 mg (COMPLETED) 1,000 mg, intravenous, NOW X1, 1 dose, On Thu07/07/23 at 2115, STAT 2111 (Given - Provid er: Jennifer Santos, MARYANNE)2158 (Completed - Provider: Jimena Mesa, MARYANNE) ketOROLAC (TORADOL) injection 15 mg (COMPLETED) 15 mg, intravenous, NOW X1, 1 dose, On Thu07/07/23 at 2115, STAT 2110 (Given - Provid er: Jennifer Santos, MARYANNE) lactated ringers BOLUS 1,000 mL (COMPLETED) 1,000 mL, intravenous, NOW X1, 1 dose, On Thu07/07/23 at 2100, Routine 2100 (New Bag - Prov ider: Jennifer Santos, MARYANNE)2217 (Completed - Provider: Jimena Mesa, MARYANNE) ondansetron (PF) (ZOFRAN) injection 4 mg (COMPLETED) 4 mg, intravenous, NOW X1, 1 dose, On Thu07/07/23 at 2115, STAT 2110 (Given - Provid er: Jennifer Santos, MARYANNE) ondansetron 4 mg ODT tab STARTER PACK (COMPLETED) 1 Package, oral, NOW X1, 1 dose, On Thu07/07/23 at 2315, STAT 2257 (Given - Provid er: Jimena Mesa, MARYANNE) documented in this encounter Additional Health Concerns Infection Onset Date Last Indicated Resolved Time R/O COVID-19 07/07/2023 07/07/2023 07/07/2023 22:0 5 EDT Rule-Out C. difficile 07/07/2023 07/07/20232023 22:16 EDT documented as of this encounter Care Teams [employer] Steward/Stewardess Relationship Specialty Start Date End Date Juana Olmedo NP [address] [place] [phone] PCP - General 07/07/23 documented as of this encounter
--- OUTSIDE RECORDS SUMMARY | 2023-12-25 15:23 | XMS_ITS | Encounter Summary ---
Author Organization [facility] Address [facility] [place] [address] Care Team Providers Care Nutrition Teacher Name Role Phone Olya Bauman MD Primary Care Provider [phone] Reason for Referral * Surgical (Routine) - Closed Specialty Diagnoses / Procedures Referred By Edwar segovia Referred To Contact General Surgery Diagnoses Araiza's esophagus Hiatal hernia Samantha Vásquez APRN [facility] [place] [address] Tammy Staples MD [facility] [place] [address] Referral ID Status Reason Start Date Expiration Date V isits Requested Visits Authorized [id number] Closed Consult, Test & Treat 10/17/2014 10/17/2015 3 3 Reason for Visit * Reason Comments Follow-up Encounter Details Date Type Department Care Team (Late st Contact Info) Description 10/17/2014 1:00 PM EDT Follow-Up Gastroenterology at [facility] [address] Samantha Vásquez APRN [facility] [place] [address] Araiza's esophagus; Hiatal hernia Discharge Disposition: Home [...] Sign Reading Time Taken Comments Blood Pressure 136/69 10/17/2014 1:11 PM EDT Pulse 51 10/17/2014 1:11 PM EDT Temperature - - Respiratory Rate - - Oxygen Saturation - - Inhaled Oxygen Concentration - - Weight 99.8 kg (220 lb) 10/17/2014 1:11 PM EDT Weighed with shoes. Height 177.8 cm (5' 10) 10/17/2014 1:1 1 PM EDT Body Mass Index 31.57 10/17/2014 1:11 PM EDT documented in this encounter Patient Instructions * Patient Instructions* Samantha Vásquez APRN - 10/17/2014 1:29 PM EDT 1. Barium swallow to evaluate size and type of hiatal hernia 2. Referral to surgery for repair of hiatal hernia 3. GERD diet and lifestyle modifications 4. Recommend eating smaller more frequent 5-6 low fat meals 5. Dexilant 60 mg daily on an empty stomach 30 minutes before breakfast 6. Follow up 6 months Samantha Vásquez [employer] [phone] documented in this encounter Progress Notes * Samantha Vásquez APRN - 10/17/2014 12:49 PM EDT Subjective: Patient ID: Shaka Liu is a 29 y.o. man who presents for follow up of his gastrointestinal symptoms. GI Problem List: 1. GERD: --EGD : there was a hiatal hernia extending from 38 to 45 cm; there was apparent columnar lined tubular esophagus extending from 38 to 36 cm circumferentially and then with several tongues extending to 34 cm. Normal stomach and duodenum. Path: 38 cm: Araiza's esophagus, no dysplasia; 35 cm: Araiza's metaplasia; no dysplasia. --[place] ph study off PPI: evidence of acid reflux on both days. Calculated DeMeester Score (normal values are up to 14.72): Day One Calculated DeMeester Score: 42.4 Day Two Calculated DeMeester Score: 20.4 Tcnab-Hbuej-Dxks DeMeester Score (Total): 33.1 HPI Comments: Initial visit 06/19/2014: Shaka Liu is a pleasant 28 year old man who presents forconsultation of his GERD symptoms. He reports a experiencing GERD symptoms for the past three years. He describes experiencing epigastric burning, worse postprandially and can be debilitating at times. No radiation. Periodic regurgitation. He reports that symptoms are well controlled on Dexilant 60 mg qd. If he skips a day or two before GERD symptoms return. He reports trying Pepcid x 3 weeks and Carafate x 3 weeks six months ago but GERD symptoms worsened. He is unable to identify any specific triggers. Any food can bother my reflux symptoms if he is not taking Dexilant. No nocturnal symptoms. He reports having a formed bowel movement every day. No melena, hematochezia, rectal or anal pain. Weight stable. No food allergies or intolerances. Rare NSAID's. Denies heartburn, acid taste, chest pain, dysphagia, odynophagia, nausea, vomiting, early satiety, postprandial fullness, pre prandial symptoms. Interval Hx 10/17/2014: He reports that GERD symptoms are well controlled on Dexilant 60 mg qd. If he skips a dose of Dexilant then he is symptomatic. He denies nocturnal symptoms. He is interested in referral to surgery to discussed repair of large hiatal hernia and options for treatment of his Araiza's esophagus. Weight stable. Denies heartburn, acid taste, indigestion, chest pain, ENT concerns, dysphagia, odynophagia, nausea, vomiting, early satiety, postprandial fullness, pre prandial symptoms. Review of Systems Constitutional: Negative. HENT: Negative. Respiratory: Negative. Cardiovascular: Negative. Gastrointestinal: See HPI Endocrine: Negative. Musculoskeletal: Negative. Skin: Negative. Allergic/Immunologic: Negative. Neurological: Negative. Hematological: Negative. Psychiatric/Behavioral: Negative. Allergies: NKDA Medications: reviewed in edh albuterol (PROVENTIL HFA;VENTOLIN HFA;PROAIR) 90 mcg/actuation HFA Aerosol Inhaler; ERGOCALCIFEROL,VITAMIN D2, (VITAMIN D ORAL); ACETYLCYSTEINE (L-GUCFDM-W-CYSTEINE MISC); dexlansoprazole (DEXILANT)60 mg CpDM; betamethasone dipropionate (DIPROLENE) 0.05 % cream; ammonium lactate (LAC-HYDRIN) 12 %lotion Past Medical History Diagnosis Date ??? Dermatitis ??? GERD (gastroesophageal reflux disease) Past Surgical History Procedure Laterality Date ??? Hand surgery ??? Pro upper gi endoscopy, biopsy N/A 09/06/2014 UPPER GASTROINTESTINAL ENDOSCOPY,WITH BIOPSY SINGLE OR MULTIPLE performed by Riley Ly MD at [facility] Vital Signs: BP 136/69; P 51; Wt 220 lbs; Ht 5'10; BMI: 31.6 Objective: Physical Exam Constitutional: He is oriented to person, place, and time. He appears well- developed and well-nourished. No distress. Abdominal: No hepatosplenomegaly. No succussion splash. No epigastric bruit. Genitourinary: Rectal exam deferred. Neurological: He is alert and oriented to person, place, and time. Skin: Skin is warm and dry. He is not diaphoretic. Psychiatric: He has a normal mood and affect. His behavior is normal. Judgment and thought content normal. Vitals reviewed. Assessment and Plan: 1. GERD/Araiza's esophagus: reviewed his EGD that revealed a large hiatal hernia, Araiza's esophagus, normal stomach and duodenum. Bx: consistent with Araiza's esophagus but no dysplasia. Discussed the etiology, pathophysiology, diagnostic tests and treatment of Araiza's esophagus and hiatal hernia. Recommend barium swallow to evaluate the type/size of hiatal hernia. Recommend referral to surgery for consultation for hiatal hernia repair/Gemini fundoplication. Recommend Dexilant 60 mg qd. GERD diet and lifestyle modifications. If he opts to not proceed with surgery then consider EGD with b joie for surveillance of Araiza's esophagus. Consider HROEM to r/o esophageal dysmotility. I did my best to answer all of his questions. The following plan was formulated. Plan: 1. Barium swallow to evaluate size and type of hiatal hernia 2. Referral to surgery for consultation for hiatal hernia repair/Gemini fundoplication 3. GERD diet and lifestyle modifications 4. Recommend eating smaller more frequent 5-6 low fat meals 5. Dexilant 60 mg daily on an empty stomach 30 minutes before breakfast 6. Follow up 6 months Patient understands and is agreeable to the above plan. Written instructions provided. Samantha Vásquez APRN Section of [place]enter[place] [address] documented in this encounter Plan of Treatment Scheduled Referrals Name Type Priority Associated Diagnoses Orde r Schedule Referral to General Surgery Outpatient Referral Routine Araiza's esophagus Hiatal hernia Ordered: 10/17/2014 documented as of this encounter Results * XR Fluoro Barium [...] hernia without mention of obstruction or gangrene Araiza's esophagus Hiatal hernia Diaphragmatic hernia without mention of obstruction or gangrene documented in this encounter Care Teams Nutrition Teacher Relationship Specialty Start Date End Date Olya Bauman MD [address] [place] [address] PCP - General 01/29/11 documented as of this encounter
--- OUTSIDE RECORDS SUMMARY | 2023-12-25 15:23 | XMS_ITS | Encounter Summary ---
Author Organization [facility] Address [address] [place] [address] Care Team Providers Care Dredge Pipe Operator Name Role Phone Olya Bauman MD Primary Care Provider [phone] Reason for Visit * Reason Comments Cough Encounter Details Date Type Department Care Team ([facility] st Contact Info) Description 05/13/2023 0:15 EDT - 05/13/2023 2:16 EDT Emergency [facility] Emergency Department [address] [place] [address] Juliann Gonzales MD [address] [place] [address] Bronchitis (Primary Dx) Discharge Disposition: Home or Self [...] Sign Reading Time Taken Comments Blood Pressure 136/77 05/13/2023 0215 EDT Pulse 63 05/13/2023 0028 EDT Temperature 36.9 ??C (98.5 ??F) 05/13/2023 0028 EDT Respiratory Rate 18 05/13/2023 0215 EDT Oxygen Saturation 93% 05/13/2023 0215 EDT Inhaled Oxygen Concentration - - Weight [...] this encounter Discharge Instructions * Discharge Instructions* Juliann Gonzales MD - 05/13/2023 2:03 EDT Diagnosis: Bronchitis 1. You have been diagnosed with bronchitis. 2. Bronchitis is an irritation of the lining of the larger breathing tubes leading to the lungs. The irritation can be caused by exposure to tobacco smoke, air pollution, or viral or bacterial infection. Patients with bronchitis are short of breath and may cough up green or yellow material. These symptoms are usually worse in the evening and in wet weather. Please continue the antibiotics that you were already prescribed. 3. The treatment for bronchitis can include inhalers (albuterol or Ventolin), cough suppressants and in some cases, antibiotics. It is also hope to avoid exposure to whatever is triggering your symtpoms, such as smoke. 4. The reason that your doctor may not give you antibiotics is that a majority of bronchitis is caused by a virus. Viruses (like the common cold virus), can't be killed or affected in any way by antibiotics. In the past many physicians used to use antibiotics to treat bronchitis but current medicalliterature suggests that they are not necessary in most patients. Patients who may benefit from antibiotics are those with chronic lung problems such as emphysema, chronic bronchitis, COPD, or other lung diseases. 5. In many patients, the symptoms of cough and even wheezing can persist for up to 2-3 weeks! They should be getting better over this time period and not worse. 6. Do not smoke. The medical evidence has overwhelmingly shown that smoking causes heart disease, cancer, and defects. Avoiding cigarettes will help your symptoms. Ask your regular doctor aboutmethods to help you quit smoking. If you do not smoke avoid others that do. 7. YOU SHOULD RETURN TO THE EMERGENCY DEPARTMENT IMMEDIATELY IF ANY OF THE FOLLOWING OCCUR: - Difficulty breathing or wheezing. - Fever greater than 101?? F (38.3?? C) . - Chest pain. - Vomiting; inability to keep medications down, dizziness, weakness, or confusion. - Worsening symptoms over the next 2-3 days. documented in this encounter Medications at Time [...] capsule Take 1 Capsule by mouth daily. amoxicillin-clavulanat e (AUGMENTIN) 875-125 mg per tablet TAKE ONE TABLET BY MOUTH TWICE A DAY FOR SINUS INFECTION 02/24/2022 11/19/2023 azithromycin (ZITHROMAX) 250 mg tabletIndications:Acut e cough Take 2 tablets (500 mg) on day 1, followed by 1 tablet (250 mg) once daily on days 2 through 5. 6 Tablet 03/04/2022 07/07/2023 benzonatate (TESSALON) 100 mg capsule TAKE TWO CAPSULES BY MOUTH THREE TIMES A DAY NEEDED FOR COUGH 02/24/2022 11/19/2023 guaiFENesin-codeine (GUAIFENESIN AC) 100-10 mg/5 mL liquidIndications:Acut e cough Take 5-10 mL by mouth 4 times daily as needed for Cough. Daily Max: 40 mL 120 mL 03/04/2022 11/19/2023 predniSONE (DELTASONE) 20 mg tablet Take 3 Tablets by mouth daily for 4 days. 12 Tablet 05/14/2023 05/18/2023 documented as of this encounter Ordered Prescriptions Prescription Sig Dispensed Refills Start Date End Da te predniSONE (DELTASONE) 20 mg tablet Take 3 Tablets by mouth daily for 4 days. 12 Tablet 05/14/2023 05/18/2023 documented in this encounter Discharge Disposition Disposition Code Departure Means Destination Comment s Home or Self Intermediate documented in this encounter Progress Notes * Patsy Livingston RT - 05/13/2023 0122 EDT Respiratory Consult/Progress Note Indications for Respiratory therapy: initial consult Data Vitals: Heart Rate: 78 BPM, Resp: 18, SpO2: 98 % FIO2/O2 Device: , , , RT Orders: Duoneb x 1 Protocol Scoring: Bronchodilator/Inhalation Therapy Frequency Bronchodilator - Clinical Indications: History of bronchospasm Breath Sounds: Any abnormal BS decreased Response: Mild response, increase subjective per ACCOUNTS RECEIVABLE ANALYST Pulse: <100 Resp Rate: <18 SOB: With exertion Total Score: 3 Frequency Based On Total Score: 0-4 = PRN 5-7 = QID 8-10 = Q4H 11-12 = Q2H Airway Clearance Therapy Frequency Airway Clearance - Clinical Indications: Productive cough Breath Sounds: Rhonchi / crackles Sputum: Small (tsp) / None Consistency: None Cough Effort: Strong/ non-productive Color: None Total Score: 1 Frequency Based On Total Score: 0-3 = PRN 4-6 = QID and PRN 7-9 = Q4H and PRN 10-11 = Q2H and PRN Hyperinflation Therapy Frequency Hyperinflation - Clinical Indications: No clinical indications Breath Sounds: Diminished / crackles Surgery: No X-Ray / Atelectasis: No O2 Requirements: O2 at baseline Mobility Status: Mobile / at baseline Total: 2 Frequency Based On Total Score: 0-3 = PRN 4-6 = QID and PRN 7-9 = Q4H and PRN 10-12 = Q2H and PRN Action/Events Respiratory events; Pt given Duoneb x 1 for cough. Pt has hx of exercise induced asthma. Pt has home inhaler but no spacer. Pt provided with spacer. Pt is on RA PATSY LIVINGSTON RT 05/13/23 documented in this encounter ED Notes * Rosette Dial RN - 05/13/2023 0025 EDT Pt reports a few weeks of cough, worse at night, afebrile. Pt states that he was seen at PCP 1 weekago, negative for FLU/Covid/RSV, and started on Azithromycin 2 days ago. Tessalon perles have been ineffective. * Juliann Gonzales MD - 05/13/2023 0012 EDT [facility] EMERGENCY DEPARTMENT Patient Name: Shaka Liu Visit Date: 05/13/2023 Mode of Arrival:Walk-in Primary Care Provider: Olya Bauman BRIEF ED ASSESSMENT & TREATMENT SUMMARY Chief Complaint Patient presents with Cough ED Physician Assessment and Clinical Summary Shaka Liu is a pleasant 37 y.o. male with a history of GERD, HTN, exercise-induced asthma presenting to the ED with prolonged cough in the setting of a viral URI that passed through his household. Has been taking Tessalon Perles, Claritin, decongestants. Now on day 2 of a Z-Cristóbal. Please refer to HPI for details. He is afebrile and vital signs are stable and normal. Has a frequent cough. Lungs are clear, without wheezes, rales, or rhonchi. Oropharynx mildly injected with erythema but no exudate. Tonsils normal. Uehling much improved after DuoNeb therapy. RT provided him with an AeroChamber for his albuterol MDI at home, which he has not been using. He states he is really only needed it for exercise-induced asthma and has not used it in over a year. Formal read is pending, but I do not see anything acute on his chest x-ray. He is already on albuterol. Given improvement with DuoNeb, was started on a 5-day course of prednisone. Supportive care and strict return to ED precautions were discussed, and all questions were answered. Final Diagnosis Final diagnoses: Bronchitis Disposition The patient was discharged. Diagnosis, lab results, other ancillary study results and discharge instructions/medications and plan for followup were discussed with the pt and/or the family. Indications for emergent return and re- evaluation were also explained. All questions were answered and the pt/family understands and agrees with the current plan. Discharge Medications Continue azithromycin Albuterol MDI q4-6 hrs as needed Prednisone 60mg PO Qday x 5 days Follow Up Care Olya Bauman MD [address] [facility] [address] As needed [facility] Emergency Department [address] [facility] [address] As needed EXTENDED ED RECORD History of Present Illness (Complete) Shaka Liu is a pleasant 37 y.o. male with a history of GERD, HTN, asthma presenting to the EDwith worsening cough. The patient states that an acute viral upper respiratory illness has passed through his household, but he has had a persistent cough for the past couple of weeks. Last Thursday, approximately 1 week ago, he saw his PCP. He was started on Claritin and Tessalon Perles, and was given a prescription for a Z-Cristóbal, which she was told to wait to take if he did not have improvement with the other supportive measures. He started taking the azithromycin on Thursday, and presents tonight, late Thursday night into Thursday morning, so has taken 2 doses. Uehling he was initially improving, but had significant coughing tonight such that he could not sleep due to significant coughing. Feels irritation in the lower anterior throat. Noted some pink tinged sputum which he attributes to irritation in his throat. Tested negative for Covid last week. No fevers/chills. Data Reviewed this visit No Known Allergies Current Facility-Administered Medications Medication Dose Route Frequency Provider Last Rate Last Admin predniSONE (DELTASONE) tablet 60 mg 60 mg oral Now Juliann Gonzales MD Current Outpatient Medications Medication Sig Dispense Refill albuterol 90 mcg/actuation inhaler Inhale 180 mcg as directed every 4 hours as needed for Wheezing. amoxicillin-clavulanate (AUGMENTIN) 875-125 mg per tablet TAKE ONE TABLET BY MOUTH TWICE A DAY FOR SINUS INFECTION (Patient not taking: Reported on 05/13/2023) azithromycin (ZITHROMAX) 250 mg tablet Take 2 tablets (500 mg) on day 1, followed by 1 tablet (250 mg) once daily on days 2 through 5. 6 Tablet 0 benzonatate (TESSALON) 100 mg capsule TAKE TWO CAPSULES BY MOUTH THREE TIMES A DAY NEEDED FOR COUGH cholecalciferol (VITAMIN D3) 50,000 unit capsule Take 50,000 Units by mouth once a week. guaiFENesin-codeine (GUAIFENESIN AC) 100-10 mg/5 mL liquid Take 5-10 mL by mouth 4 times daily as needed for Cough. Daily Max: 40 mL (Patient not taking: Reported on 05/13/2023) 120 mL 0 losartan (COZAAR) 50 mg tablet Take 50 mg by mouth daily. omeprazole (PRILOSEC) 20 mg capsule Take 20 mg by mouth daily. [START ON 05/14/2023] predniSONE (DELTASONE) 20 mg tablet Take 3 Tablets by mouth daily for 4 days. 12 Tablet 0 Review of Symptoms ROS A 10-point review of systems was performed. The historian answered negative to all questions with the exceptions of those explicitly detailed as positives in the HPI. Pertinent negatives are also explicitly stated. Physical Exam Vital Signs Vital Signs Temp: 36.9 ??C (98.5 ??F) Temp src: Oral Pulse: 63 Heart Rate: 78 BPM Resp: 18 SpO2: 98 % BP: 126/89 Nursing notes and vital signs were reviewed. Physical Exam Vitals and nursing note reviewed. Constitutional: General: He is not in acute distress. Appearance: Normal appearance. He is ill-appearing. He is not toxic-appearing or diaphoretic. HENT: Head: Normocephalic and atraumatic. Right Ear: External ear normal. Left Ear: External ear normal. Nose: Congestion present. Mouth/Throat: Mouth: Mucous membranes are moist. Pharynx: Posterior oropharyngeal erythema present. No oropharyngeal exudate. Eyes: Extraocular Movements: Extraocular movements intact. Conjunctiva/sclera: Conjunctivae normal. Cardiovascular: Rate and Rhythm: Normal rate and regular rhythm. Heart sounds: Normal heart sounds. No murmur heard. No friction rub. No gallop. Pulmonary: Effort: Pulmonary effort is normal. Breath sounds: Normal breath sounds. No wheezing, rhonchi or rales. Abdominal: General: There is no distension. Palpations: Abdomen is soft. Tenderness: There is no abdominal tenderness. Musculoskeletal: General: Normal range of motion. Cervical back: Normal range of motion and neck supple. Right lower leg: No edema. Left lower leg: No edema. Skin: General: Skin is warm and dry. Neurological: General: No focal deficit present. Mental Status: He is alert and oriented to person, place, and time. Mental status is at baseline. Psychiatric: Mood and Affect: Mood normal. Behavior: Behavior normal. Procedures Procedures Data Interpretation/Results Laboratory results were obtained and independently reviewed. Labs Reviewed - No data to display Imaging obtained was reviewed. My independent interpretation as a non- radiologically trained emergency physician, pending radiology review, is: no acute process. Formal read pending. XR CHEST 2 VIEWS (Results Pending) Medical Decision Making and Patient Care Timeline Final diagnoses: Bronchitis Disposition The patient was discharged. Disposition decisions were made weighing risks and benefits of hospitalization vs. outpatient treatment, the risk for further decompensation, and the patient???s wishes. The patient was stable, improved, or requested discharge. Prior to discharge my usual and customaryreturn precautions were reviewed with the patient and/or family. This included follow-up instructions and reasons to return to the Emergency Department if condition worsens, does not improve as expected, or other new concerns arise. documented in this encounter Plan of Treatment Not on file documented as of this encounter Procedures Procedure Name Priority Date/Time Associated Diagnosis Comments XR CHEST 2 VIEWS STAT 05/13/2023 1:28 EDT documented in this encounter Results * XR CHEST 2 VIEWS (05/13/2023 1:28 EDT) Anatomical Region Laterality Modality Computed Radiogr aphy 05/13/2023 1:22 EDT Impressions 05/13/2023 5:00 EDT No acute findings. THIS DOCUMENT HAS BEEN ELECTRONICALLY SIGNED BY ELI MILNER MD FOR ANY QUESTIONS OR CONCERNS REGARDING THIS REPORT PLEASE CALL [facility] AT [phone] Narrative 05/13/2023 5:00 EDT PROCEDURE INFORMATION: Exam: XR Chest Exam date and time: 05/13/2023 1:22 AM Age: 37 years old Clinical indication: Other: Cough TECHNIQUE: Imaging protocol: Radiologic exam of the chest. Views: 2 views. COMPARISON: CR XR CHEST 2 VIEWS 04/07/2022 7:54 AM FINDINGS: Lungs: Unremarkable. No consolidation. Pleural spaces: Unremarkable. No pleural effusion. No pneumothorax. Heart/Mediastinum: Unremarkable. No cardiomegaly. Bones/joints: Unremarkable. Procedure Note Eli Milner MD - 05/13/2023 PROCEDURE INFORMATION: Exam: XR Chest Exam date and time: 05/13/2023 1:22 AM Age: 37 years old Clinical indication: Other: Cough TECHNIQUE: Imaging protocol: Radiologic exam of the chest. Views: 2 views. COMPARISON: CR XR CHEST 2 VIEWS 04/07/2022 7:54 AM FINDINGS: Lungs: Unremarkable. No consolidation. Pleural spaces: Unremarkable. No pleural effusion. No pneumothorax. Heart/Mediastinum: Unremarkable. No cardiomegaly. Bones/joints: Unremarkable. IMPRESSION No acute findings. THIS DOCUMENT HAS BEEN ELECTRONICALLY SIGNED BY ELI MILNER MD FOR ANY QUESTIONS OR CONCERNS REGARDING THIS REPORT PLEASE CALL [facility] [phone] Juliann Gonzales MD IMG DIAGNOSTIC IMAGI NG ORDERABLES documented in this encounter Visit Diagnoses Diagnosis Bronchitis- Primary Bronchitis, not specified as acute or chronic documented in this encounter Administered Medications Inactive Administered Medications - up to 3 most recent administrations Medication Order MAR Action Action Date Dose Rate Site ipratropium-albuteroL (DUONEB) 0.5 mg-3 mg(2.5 mg base)/3 mL nebulizer solution 3 mL 3 mL, nebulization, NOW X1, 1 dose, On Thu05/13/23 at 0115, STAT Given 05/13/2023 1:02 EDT 3 mL predniSONE (DELTASONE) tablet 60 mg 60 mg, oral, NOW X1, 1 dose, On Thu05/13/23 at 0230, Routine Given 05/13/2023 2:12 EDT 60 mg documented in this encounter Active and Recently Administered Medications Times are shown in EDT. Scheduled Medication Order 05/11/2023 05/12/2023 05/13/2023 ipratropium-albuteroL (DUONEB) 0.5 mg-3 mg(2.5 mg base)/3 mL nebulizer solution 3 mL (COMPLETED) 3 mL, nebulization, NOW X1, 1 dose, On Thu05/13/23 at 0115, STAT 0102 (Given - Provid er: Patsy Day, RT) predniSONE (DELTASONE) tablet 60 mg (COMPLETED) 60 mg, oral, NOW X1, 1 dose, On Thu05/13/23 at 0230, Routine 0212 (Given - Provid er: Rosette Dial RN) documented in this encounter Orders Nursing Count Last Ordered Date First Orde red Date PAGE RESPIRATORY THERAPY 1 05/13/2023 documented in this encounter Care Teams Dredge Pipe Operator Relationship Specialty Start Date End Date Olya Bauman MD [address] [place] [address] PCP - General 11/05/17 07/06/23 documented as of this encounter
--- OUTSIDE RECORDS SUMMARY | 2023-12-25 15:23 | XMS_ITS | Encounter Summary ---
Author Organization [facility] Address [address] [place] [address] Care Team Providers Care Natural Resources Manager Name Role Phone Olya Bauman MD Primary Care Provider [phone] Encounter Details Date Type Department Care Team (Late st Contact Info) Description 08/27/2022 Results Only [facility] Laboratory Services - [facility] [address] [place] [address] Juana Olmedo, [address] [place] [address] Social History Tobacco Use Types Packs/Day Years [...] Procedure Name Priority Date/Time Associated Diagnosis Comments LIPID PROFILE (INCLUDES CHOLESTEROL, TRIGLYCERIDES, HDL, LDL) Routine 08/27/2022 16:29 EDT documented in this encounter Results * (ABNORMAL) LIPID PROFILE (INCLUDES CHOLESTEROL, TRIGLYCERIDES, HDL, LDL) (08/27/2022 16:29 EDT) Cholesterol 175.00 0.00 - 200.00 mg/dL [facility] dHDL 37.00(L) 40.00 - 60.00 mg/dL [facility] Triglycerides 223.00(H) 0.00 - 150.00 mg/dL [facility] 08/27/2022 16:2 9 EDT Juana Olmedo GAS ADJUSTER CHEMISTRY & BLOOD GA S ORDERABLES [facility] [email or web address] [address] [place] [address] documented in this encounter Visit Diagnoses Not on filedocumented in this encounter Care Teams Natural Resources Manager Relationship Specialty Start Date End Date Olya Bauman MD [address] [place] [address] PCP - General 11/05/17 07/06/23 documented as of this encounter
--- OUTSIDE RECORDS SUMMARY | 2023-12-25 15:23 | XMS_ITS | Encounter Summary ---
Author Organization [facility] Address [facility] [place] [address] Care Team Providers Care Portfolio Accountant Name Role Phone Olya Bauman MD Primary Care Provider [phone] Encounter Details Date Type Department Care Team (Late st Contact Info) Description 08/11/2011 9:00 AM EDT Office [place] [address] Sandra Alford MD [facility] [place] [address] Rash (Primary Dx) Discharge Disposition: Home Social History Tobacco Use Types Packs/Day Years Used Date Smoking Tobacco: Never Sex and Gender Information Value Date Recorded Sex Assigned at Not on file Gender Identity Not on file Sexual Orientation Not on file documented as of this encounter Progress Notes * Sandra Alford MD - 08/11/2011 9:03 AM EDT Dermatology [facility] [place] [address] (p) [phone] (f) [phone] INITIAL PATCH TESTING EVALUATION Shaka Chavez Noe : 1985 Staff Provider: Sandra Alford MD SUBJECTIVE: Shaka Liu is a 25 y.o. year old referred by Dr. Khanna to the contact dermatitis clinic at [facility] for evaluation of this skin problem and consideration of extended patch testing. Records from previous visits reviewed. History and duration/frequency/symptoms: Itchy bumps on arms, forearms, thighs. Varies, may have upwards of 8, may go a week without any. Winter months may have 1-2 or up to 8. Seem very randomly located. Never on back or neck. A bump may last a week or so. Betamethasone dipropionate does not seem to help itch or healing. Lesions itch like crazy for a couple days , especially with hot water. Can scratch enough to break the skin. Does not notice otherwise he scratches. History or ichthyosis vulgaris, used lachydrin in past. Usually on the forearms. Forearms and upperthighs. Has it year round. Biopsy : c/w bite reaction. Changed beds x 3. Stopped using lotion for dry skin. Nothing topical seems to take the itch away. Location of problem: site 1 site 2 site 3 forearms thighs abdomen Treatments tried: betamethasone dipropionate. Old- am lactin. Does not recall taking any antihistamines orally for this. Current treatments and skin care regimen: Patient's estimate of number of personal care products: 0-5, 5-10, 11-15, 16-20, > 20; Bar soap , like dial or dove. Tried Allergenic Minocycline for acne in past, none recently. Atopic history: Personal Hx of Hayfever Y/N Personal Hx of Eczema Y/N Personal Hx of Asthma Y/N yes no yes Family Hx of Hayfever Family Hx of Eczema Family Hx of Asthma Allergic history: No Known Allergies: Avoids cats, will use inhaler for any exposure. Exposure is rare. Allergy testing previously with T.R.U.E. Test: no, just biopsy Allergy testing previously with prick testing: yes in past; looking for bee allergy when young Past skin history: Acne- on minocin in the past Ichthyosis vulgaris Any prior problem with toiletries, creams, topical product. jewelry? No trouble with metal agains the skin Number of total piercings (one for each ear pierced, etc): 3 earrings No plates, screws, joints. No retainers No gold crowns Diet: pretty normal diet. MVI in past. 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 pets, carpets, old home, new construction): no hobbies making things, no chemicals Past medical history: Asthma Dry skin Present medications and estimate of duration of each: Vit D- last year , way after rash started dexilant (taking < 1 year) Social history: Who lives at home: Father has a dog, does not regularly see the dog, no relationship Alcohol: not regularly Smoking: no OBJECTIVE: Oriented, alert, appropriate, good historian. Back : scattered acne papules on upper back, and some acne scarring. ichythyosiform scaling on bilateral flanks, arms, LE Lesion in question is an erythematous papule 2-4mm, he has shown me on his abdomen. ASSESSMENT: Here for patch testing; morphology of the eruption is not highly consistent with contact allergy but may be sales representative door to door of a hypersensitivity reaction as suggested on biopsy. Reasonable to patch test Given how much this bothers him, and lack of other etiology, though not high yield. I discussed this. PLAN: 1. Discussed patch testing procedure in-depth. Three visits required for proper testing: allergens are placed on Thursday, removed and their positions marked on Thursday followed by initial patch reading, and final patch test reading on Thursday. Reviewed procedure and typical potential allergic reactions using photographs in a powerpoint presentation to educate the patient, allow them to ask questions, and show them what to expect. Discussed potential for some flare- up of patient's dermatitis on previously-affected skin during the testing which seems to occur more frequently if relevant positive reactions develop during testing. Discussed expectations for the final patch visit: after the tests are read on Thursday I will discuss the results in-depth. An information sheet about contact allergywill be given summarizing the positive results. For each allergic reaction, the patient will receive an information sheet reviewing the allergen name, synonyms, potential cross-reacting chemicals, possible exposure sources, and potential alternative products as needed. 2. [facility] [id number] allergen patch test series was placed by my nurse. Allergens/Products tested: NACDG series: [x ]yes [ ] no Supplemental allergens: [x ]yes [ ] no Patient's own personal care products: [ ]yes [x ] no Printed instructions and information regarding expectations and care were given and reviewed by aayush. 3. Return Thursday and Thursday for patch readings. Providers: Sandra Alford M.D. ([id number]) Cc: Ministerio Khanna MD documented in this encounter Plan of Treatment Not on file documented as of this encounter Visit Diagnoses Diagnosis Rash- Primary Rash and other nonspecific skin eruption documented in this encounter Care Teams Portfolio Accountant Relationship Specialty Start Date End Date Olya Bauman MD [address] [place] [id number] PCP - General 01/29/11 documented as of this encounter
--- OUTSIDE RECORDS SUMMARY | 2023-12-25 15:23 | XMS_ITS | Encounter Summary ---
Author Organization [facility] Address [address] [place] [address] Care Team Providers Care Job Printer Name Role Phone Juana Olmedo NP Primary Care Provider [phone] Encounter Details Date Type Department Care Team (Latest Contact Info) Description 12/16/2023 13:04 EDT - 12/16/2023 23:59 EDT Hospital Encounter [facility] - [facility] Lab - Main [address] [address] Meter Tester Polyphase, [facility] Lab Discharge Disposition: Home or Self Care Social [...] capsule Take 1 Capsule by mouth daily. documented as of this encounter Discharge Disposition Disposition Code Departure Means Destination Home or Self Care documented in this encounter Plan of Treatment Not on file documented as of this encounter Visit Diagnoses Not on filedocumented in this encounter Care Teams Job Printer Relationship Specialty Start Date End Date Juana Olmedo NP [address] [place] [address] PCP - General 07/07/23 documented as of this encounter
--- OUTSIDE RECORDS SUMMARY | 2023-12-25 15:23 | XMS_ITS | Encounter Summary ---
Author Organization [facility] Address [address] [place] [address] Care Team Providers Care Chief Pharmacist Name Role Phone Olya Bauman MD Primary Care Provider [phone] Juana Olmedo NP Primary Care Provider [phone] Encounter Details Date Type Department Care Team (Late st Contact Info) Description 08/21/2021 Lab Requisition [facility] Pathology & Laboratory Medicine - [facility] [address] [place], [place] [phone] Evelina Shelton MD [address] [place] [phone] Encounter for other general examination Social History Tobacco Use Types Packs/Day Years [...] Procedure Name Priority Date/Time Associated Diagnosis Comments OUTSIDE CASE REVIEW Today 08/21/2021 1 4:05 EDT Encounter for other general examination documented in this encounter Results * OUTSIDE CASE REVIEW (08/21/2021 14:05 EDT) Final Diagnosis OUTSIDE SLIDES [facility] [id number] (1), PROCEDURE DATE 08/13/2021 A. 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 - Negative for dysplasia. - See comment. 08/23/2021 16:49 [facility] Diagnosis Comment The focus of atypia is noted; however, there is surface maturation in the form of foveolar caps. Deeper sections have been reviewed at our institution. Title One Reading Teacher slides of this case were reviewed at the gastrointestinal/ elise[facility] intradepartmental consultation conference. 08/23/2021 16:49 [facility] Attestation By the signature below, the attending physician certifies that they have 1) personally conducted a gross and/or microscopic examination of the described specimen(s), and/or personally interpreted the results of laboratory testing of the described specimen(s), and 2) personally rendered or confirmed the above diagnosis. 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 One slide is received for review from [facility], labelled [id number]. One paraffin block is also received for review labelled [id number]. 08/23/2021 16:49 [facility] Scanned Images 08/23/2021 16:49 [facility] Tissue ENTIRE ESOPHAGUS / Unknown 08/21/2021 14:05 EDT 08/21/2021 14:06 EDT Evelina Shelton MD PATHOLOGY ORDERABLES [facility] [address] [place] [address] documented in this encounter Visit Diagnoses Diagnosis Encounter for other general examination documented in this encounter Additional Health Concerns Infection Onset Date Last Indicated Resolved Time R/O COVID-19 07/07/2023 07/07/2023 07/07/2023 22:0 5 EDT Rule-Out C. difficile 07/07/2023 07/07/20232023 22:16 EDT documented as of this encounter Care Teams Chief Pharmacist Relationship Specialty Start Date End Date Olya Bauman MD [address] [place] [id number] PCP - General 11/05/17 07/06/23 Juana Olmedo NP [address] [place] [phone] PCP - General 07/07/23 documented as of this encounter
--- OUTSIDE RECORDS SUMMARY | 2023-12-25 15:23 | XMS_ITS | Encounter Summary ---
Author Organization [facility] Address [facility] [place] [address] Care Team Providers Care Histotechnologist Name Role Phone Charissa Bauman MD Primary Care Provider [phone] Reason for Visit * Reason Comments Establish Care Encounter Details Date Type Department Care Team (Late st Contact Info) Description 11/07/2014 11:20 AM EDT Office [place] [phone] Tammy Staples MD [facility] [place] [address] Araiza's esophagus Discharge Disposition: Home Social History Tobacco Use [...] Sign Reading Time Taken Comments Blood Pressure 131/80 11/07/2014 11:29 AM EDT Pulse 55 11/07/2014 11:29 AM EDT Temperature 36.9 ??C (98.4 ??F) 11/07/2014 11:29 AM E DT Respiratory Rate 16 11/07/2014 11:29 AM EDT Oxygen Saturation 99% 11/07/2014 11:29 AM EDT Inhaled Oxygen Concentration - - Weight 102 kg (224 lb 13.9 oz) 11/07/2014 11:29 AM EDT Height 177.8 cm (5' 10) 11/07/2014 11:29 AM EDT Body Mass Index 32.27 11/07/2014 11:29 AM EDT documented in this encounter Progress Notes * Tammy Staples MD - 11/07/2014 1:30 PM EDT Shaka Liu is a 29 y.o. male referred by CHARISSA BAUMAN MD (General) for evaluation of symptomatic gastroesophageal reflux disease and consideration for fundoplication. He describes problems with reflux symptoms for several years. The symptoms include heartburn which is decreased with PPI therapy. He also experiences mild regurgitation on a regular basis despite therapy and lifestyle modifications (elevated head of bed, avoidance of caffeine, chocolate etc.) Overall he seems to be well controlled with PPI therapy. Mr. 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 A hiatal hernia was also noted. Manometry:not done Ambulatory pH monitoring: Positive, 99% SAP Barium swallow today does not reveal a very large hiatal hernia (contrary to EGD report) Past medical history: Patient Active Problem List Diagnosis Code ??? Ichthyosis vulgaris 757.1 ??? Pruritus 698.9 ??? Dermatitis 692.9 ??? Esophageal reflux 530.81 ??? 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 Hiatal hernia 553.3 Past Surgical History Procedure Laterality Date ??? Hand surgery ??? Pro upper gi endoscopy, biopsy N/A 09/06/2014 UPPER GASTROINTESTINAL ENDOSCOPY,WITH BIOPSY SINGLE OR MULTIPLE performed by Riley Ly MD at [facility] ENDOSCOPY Medications: Current Outpatient Prescriptions on File Prior to Visit Medication Sig Dispense Refill ??? albuterol (PROVENTIL HFA;VENTOLIN HFA;PROAIR) 90 mcg/actuation HFA Aerosol Inhaler Inhale 2 puffs into the lungs every 4 hours as needed for Wheezing. Use with spacer ??? ERGOCALCIFEROL, VITAMIN D2, (VITAMIN D ORAL) Take by mouth. ??? dexlansoprazole (DEXILANT) 60 mg CpDM Take 60 mg by mouth daily. No current facility-administered medications on file prior to visit. Allergies: Review of patient's allergies indicates no known allergies. Family History: Mother had paraesophageal hernia repair Social History: reports that he has never smoked. He has never used smokeless tobacco. He reports that he drinks alcohol. He reports that he does not use illicit drugs. Works in [employer] services at [employer] Review of systems: Review of systems is negative for any unexplained weight loss or weight gain. He denies any cough, chest pain or shortness on breath on exertion. He has no fevers, chills or night sweats. He denies headaches, dizziness, weakness, numbness or ataxia. Bowel and bladder elimination is normal. All other system reviews are negative. Impression. Symptomatic gastroesophageal reflux. Given how bothered he appears to be with the symptoms, despite medical therapy, I believe this patient is an appropriate candidate for laparoscopic Gemini fundoplication. The majority of this visit was spent discussing how this procedure works and its pros and cons. We also reviewed the risks of surgery, including the possibility of bleeding requiring transfusion, infection, injury to the stomach or esophagus, and the occasional need to convert to an open procedure.I explained that early satiety, gas bloating, and dysphagia occur in many patients after surgery, although these symptoms are usually temporary and tend to resolve with time. I also explained that surgery improves or eliminates reflux symptoms in the large majority of patients, but not all. Overall, he seems well informed and wishes to continue with medical therapy for now. Further investigations: Regular EGD's for Araiza's surveillance. Follow up PRN Total visit duration was 30 minutes with over 20 minutes spent in face to face discussion with the patient. documented in this encounter Plan of Treatment Not on file documented as of this encounter Visit Diagnoses Diagnosis Araiza's esophagus documented in this encounter Care Teams Histotechnologist Relationship Specialty Start Date End Date Charissa Bauman MD [address] [place] [address] PCP - General 01/29/11 documented as of this encounter
--- OUTSIDE RECORDS SUMMARY | 2023-12-25 15:23 | XMS_ITS | Encounter Summary ---
Author Organization [facility] [place] [address] Care Team Providers Care Delicatessen Goods Stock Clerk Name Role Phone Olya Bauman MD Primary Care Provider [phone] Encounter Details Date Type Department Care Team (Latest Contact Info) Description 09/11/2014 Unscheduled En[place] [address] Daryl Mcdaniel MD [facility] [place] [address] H/O gastroesophageal reflux (GERD) Social History Tobacco Use Types Packs/Day Years Used Date Smoking Tobacco: Never Alcohol Use Standard Drinks/Week Comments Yes 0 (1 standard drink = 0.6 oz pur e alcohol) Occasional Sex and Gender Information Value Date Recorded Sex Assigned at Not on file Gender Identity Not on file Sexual Orientation Not on file documented as of this encounter Progress Notes * Daryl Mcdaniel MD - 09/18/2014 4:06 PM EDT See dictated pulido report documented in this encounter Plan of Treatment Not on file documented as of this encounter Visit Diagnoses Diagnosis H/O gastroesophageal reflux (GERD) Personal history of other diseases of digestive system documented in this encounter Care Teams Delicatessen Goods Stock Clerk Relationship Specialty Start Date End Date Olya Buaman MD [address] [place] [address] PCP - General 01/29/11 documented as of this encounter
--- OUTSIDE RECORDS SUMMARY | 2023-12-25 15:23 | XMS_ITS | Encounter Summary ---
Author Organization [facility] Address [address] [place] [address] Care Team Providers Care Manager Store Name Role Phone Olya Bauman MD Primary Care Provider Encounter Details Date Type Department Care Team (Late st Contact Info) Description 08/28/2022 Results Only [facility] Laboratory Services - [facility] [address] [place] [address] Juana Olmedo, PATTERN GATER [address] [place] [address] Social History Tobacco Use Types [...] Procedure Name Priority Date/Time Associated Diagnosis Comments VITAMIN D (25,OH) Routine 08/28/2022 9:51 EDT documented in this encounter Results * VITAMIN D (25,OH) (08/28/2022 9:51 EDT) Vitamin D 37 30 - 100 ng/ml [facility] 08/28/2022 9:51 EDT Juana Olmedo PATTERN GATER CHEMISTRY & BLOOD GA S ORDERABLES [facility] [address] [place] [address] documented in this encounter Visit Diagnoses Not on filedocumented in this encounter Care Teams Manager Store Relationship Specialty Start Date End Date Olya Bauman MD [address] [place] [address] PCP - General 11/05/17 07/06/23 documented as of this encounter
--- OUTSIDE RECORDS SUMMARY | 2023-12-25 15:23 | XMS_ITS | Encounter Summary ---
Author Organization [facility] Address [address] [place] [address] Care Team Providers Care Certified Medication Technician Name Role Phone Olya Bauman MD Primary Care Provider [phone] Encounter Details Date Type Department Care Team (Latest Contact Info) Description 05/13/2023 Travel Social History Tobacco Use Types Packs/Day [...] on filedocumented in this encounter Care Teams Certified Medication Technician Relationship Specialty Start Date End Date Olya Bauman MD [address] [place] [address] PCP - General 11/05/17 07/06/23 documented as of this encounter
--- OUTSIDE RECORDS SUMMARY | 2023-12-25 15:23 | XMS_ITS | Encounter Summary ---
Author Organization [facility] Address [address] [place] [address] Care Team Providers Care Bobtail Driver Name Role Phone Olya Bauman MD Primary Care Provider [phone] Encounter Details Date Type Department Care Team (Late st Contact Info) Description 08/27/2022 Results Only [facility] Laboratory Services - [facility] [address] [place] [address] Juana Olmedo, [employer] [address] [place] [address] Social History Tobacco Use Types [...] Procedure Name Priority Date/Time Associated Diagnosis Comments LDL CHOLESTEROL Routine 08/27/2022 16:29 EDT documented in this encounter Results * LDL CHOLESTEROL (08/27/2022 16:29 EDT) Calculated LDL 93 60 - 100 mg/dL [facility] 08/27/2022 16:2 9 EDT Juana Olmedo LEAD RECOVERER HEMATOLOGY & PF4 ORD ERABLES [facility] [address] [place] [address] documented in this encounter Visit Diagnoses Not on filedocumented in this encounter Care Teams Bobtail Driver Relationship Specialty Start Date End Date Olya Bauman MD [address] [place], [place] [id number] PCP - General 11/05/17 07/06/23 documented as of this encounter
--- OUTSIDE RECORDS SUMMARY | 2023-12-25 15:23 | XMS_ITS | Encounter Summary ---
Author Organization [facility] [place] [address] Care Team Providers Care Motion Study Technician Name Role Phone Olya aBuman MD Primary Care Provider [phone] Encounter Details Date Type Department Care Team (Late st Contact Info) Description 09/06/2014 1:00 PM EDT Office [place] [phone]IN[address], DR ALISA Riggins, Kylee Briseno RN Gastric reflux Discharge Disposition: Home Social History Tobacco Use Types Packs/Day Years Used Date Smoking Tobacco: Never Alcohol Use Standard Drinks/Week Comments Yes 0 (1 standard drink = 0.6 oz pur e alcohol) Occasional Sex and Gender Information Value Date Recorded Sex Assigned at Not on file Gender Identity Not on file Sexual Orientation Not on file documented as of this encounter Progress Notes * Lori Reyes MD - 09/18/2014 4:04 PM EDT [id number] WIRELESS pH CAPSULE MOTILITY LAB Shaka Liu Age 29 PCP Olya Bauman DATABASE MARKETING MANAGERAnne-Marie Vásquez APRN STUDY DATES: 09/06/14-09/08/14 INTERPRETATION DATE: 09/11/14 PROVIDER: Lori Reyes, PhD, [place] ([id number]) INDICATION: Heartburn, regurgitation. Upper endoscopy revealed hiatial hernia and possible barretts. Study was performed off of medications to treat acid reflux. METHODS After landmarks were visualized and measured, in a supervised setting, and after informed consent, a Woodall pH telemetry capsule was deployed orally and attached to the esophageal wall at 5 cm above the upper border of the LES. No complications were noted during this procedure. FINDINGS Visual inspection of the study shows fluctuations in pH values throughout the study consistent witha technically adequate study. DAY ONE Upright: 15 hours, 40 minutes Supine: 8 hours, 20 minutes Total Number of Reflux Episodes: 70 Upright Position: 60 Supine Position: 10 Reflux Episodes Longer than Five Minutes: 6 Upright: 4 Supine: 2 Duration of Longest Episode: 28 minute(s), upright position Total Distal Esophageal Acid Exposure Time: 3hours 12 minute(s). Percent of Total Recording Time: 14.3% Percent of Upright Recording Time: 17.3% Percent of Supine Recording Time: 2% Calculated DeMeester Score (normal values are up to 14.72) Day One Calculated DeMeester Score: 42.4 DAY TWO Upright: 16 hours, 14 minutes Supine: 7 hours, 16 minutes Total Number of Reflux Episodes: 72 Upright Position: 69 Supine Position: 3 Reflux Episodes Longer than Five Minutes: 2 Upright: 2 Supine: 0 Duration of Longest Episode: 6 minute(s), upright position Total Distal Esophageal Acid Exposure Time: 1 hour 28 minute(s). Percent of Total Recording Time: 7% Percent of Upright Recording Time: 10.4% Percent of Supine Recording Time: 1.3% Calculated DeMeester Score (normal values are up to 14.72) Day Two Calculated DeMeester Score: 20.4 Ycncx-Saaum-Awwj DeMeester Score (Total): 33.1 Cdtax-Ajflf-Iwiy (Total) Fraction of Time with pH Less Than 4%: 10.8% Day One Symptoms Association Probability (SAP) for Heartburn: 100% Regurgitation: 0% Chest pain: 0% Day Two SAP for Heartburn: 99% Regurgitation: 0% Chest pain: 92% Wqsev-Yzywe-Pydc SAP for Heartburn: 99% Regurgitation: 0% Chest pain: 83% IMPRESSION: Although the patient was not on acid reflux medications, there is evidence of pathological acid reflux in the distal esophagus on both day one and day two. Centum association for heartburn was elevated for a statically significant period. RECOMMENDATION NORMAL VALUES FOR WIRELESS pH CAPSULE STUDY 1. Total number of reflux episodes = less than 50. 2. Number of episodes longer than 5 minutes = less than 3. 3. Acid exposure time Total = less than 5.3% Upright = less than 6.3% Supine = less than 1.2%. ADDENDUM SAP expresses the likelihood that a specific symptom, i.e., heartburn, regurgitation, chest pain, is associated with acid reflux. By convention, SAP values greater than 95% are positive. Lori Reyes, PhD, MD surveying technician, [facility] [employer] Chief, Section of Gastroenterology and Hepatology [facility] [place] [address] V: [phone] F: [phone] BEL/sas EC/CC: MD Samantha Hardwick APRN * Kylee Riggins RN - 09/06/2014 12:53 PM EDT 1245 Woodall capsule deployed at 30 cm below incisors following EGD. First pH 7.7. Study is being done off acid suppression and this was confirmed with him. Will mail back assisted living administrator and diary in view of the distance involved. Given padded addressed envelope for this Purpose. documented in this encounter Miscellaneous Notes * Addendum Note - Lori Reyes MD - 09/18/2014 4:05 PM EDTAddended by: LORI REYES on: 09/18/2014 04:05 PM Modules accepted: Level of Service documented in this encounter Plan of Treatment Not on file documented as of this encounter Visit Diagnoses Diagnosis Gastric reflux Esophageal reflux documented in this encounter Care Teams Motion Study Technician Relationship Specialty Start Date End Date Olya Bauman MD [address] [place] [address] PCP - General 01/29/11 documented as of this encounter
--- OUTSIDE RECORDS SUMMARY | 2023-12-25 15:23 | XMS_ITS | Encounter Summary ---
Author Organization [facility] Address [address] [place] [address] Care Team Providers Care Cardiology Tech Name Role Phone Olya Bauman MD Primary Care Provider [phone] Encounter Details Date Type Department Care Team (Late st Contact Info) Description 08/27/2022 Results Only [facility] Laboratory Services - [place] [address] [place] [address] Juana Olmedo, ASUNCION [address] [place] [address] Social History Tobacco Use Types [...] Procedure Name Priority Date/Time Associated Diagnosis Comments COMPREHENSIVE METABOLIC PANEL (CMP) Routine 08/27/2022 16:29 EDT documented in this encounter Results * COMPREHENSIVE METABOLIC PANEL (CMP) (08/27/2022 16:29 EDT) Glucose 97.00 70.00 - 100.00 mg/dL [facility] Bun 16.00 7.00 - 20.00 mg/dL [facility] Creatinine 1.10 0.70 - 1.50 mg/dL [facility] GFR, Calculated >60 [facility] Comment: Chronic renal impairment is defined as GFR <60 Multiply result by 1.210 for patients eGFR calculated using the IDMS-traceable MDRD study Sodium 144.00 137.00 - 145.00 mmol/L [facility] Potassium 4.50 3.50 - 5.10 mmol/L [facility] Chloride 107.00 98.00 - 107.00 mmol/L [facility] Carbon Dioxide 27.00 22.00 - 30.00 mmol/L [facility] Calcium 8.80 8.50 - 10.50 mg/dL [facility] Anion Gap 10 7 - 17 mmol/L [facility] Total Protein 7.80 6.30 - 8.20 g/dL [facility] Albumin 4.40 3.50 - 5.00 g/dL [facility] Total Bilirubin 0.80 0.20 - 1.30 mg/dL [facility] AST/SGOT 38.00 15.00 - 46.00 U/L [facility] ALT/SGPT 45.00 0.00 - 50.00 U/L [facility] ALK 87.00 38.00 - 126.00 U/L [facility] 08/27/2022 16:2 9 EDT Juana Olmedo PASS WORKER CHEMISTRY & BLOOD GA S ORDERABLES [facility] [address] [place] [address] documented in this encounter Visit Diagnoses Not on filedocumented in this encounter Care Teams Cardiology Tech Relationship Specialty Start Date End Date Olya Bauman MD [address] [place] [address] PCP - General 11/05/17 07/06/23 documented as of this encounter
--- OUTSIDE RECORDS SUMMARY | 2023-12-25 15:23 | XMS_ITS | Encounter Summary ---
Author Organization [facility] Address [facility] [place] [address] Care Team Providers Care Library Attendant Name Role Phone Charissa Bauman MD Primary Care Provider [phone] Reason for Visit * Reason Comments Allergy Testing Encounter Details Date Type Department Care Team (Late st Contact Info) Description 08/13/2011 9:00 AM EDT [place] [address] Sandra Alford MD [facility] DR KAE [facility] [place] [id number] Encounter for allergy testing (Primary Dx) Discharge Disposition: Home Social History Tobacco Use Types Packs/Day Years Used Date Smoking Tobacco: Never Sex and Gender Information Value Date Recorded Sex Assigned at Not on file Gender Identity Not on file Sexual Orientation Not on file documented as of this encounter Progress Notes * Sandra Alford MD - 08/13/2011 9:32 AM EDT Dermatology [facility] [place] [address] (p) [phone] (f) [phone] PATCH REMOVAL & 48HR READ - 08/13/2011 Shaka Liu : 1985 Staff Provider: Sandra Alford MD CC: Established patient here for 48 hour patch test visit. SUBJECTIVE: Patches stayed on well, no problems. There is no flare of the original rash today. Patch tests were removed and the locations marked by my nurse. OBJECTIVE: No positive results today. ASSESSMENT/PLAN: 1. Return on Thursday for final patch test reading, discussion of results, and any further recommendations regarding management. Providers: Sandra Alford M.D. ([id number]) CC: CHARISSA BAUMAN MD None documented in this encounter Plan of Treatment Not on file documented as of this encounter Visit Diagnoses Diagnosis Encounter for allergy testing- Primary Diagnostic skin and sensitization tests documented in this encounter Care Teams Library Attendant Relationship Specialty Start Date End Date Charissa Bauman MD [address] [place] [address] PCP - General 01/29/11 documented as of this encounter
--- OUTSIDE RECORDS SUMMARY | 2023-12-25 15:23 | XMS_ITS | Encounter Summary ---
Author Organization [facility] Address [facility] [place] [address] Care Team Providers Care Prop Worker Name Role Phone Olya Bauman MD Primary Care Provider Encounter Details Date Type Department Care Team (Late st Contact Info) Description 10/02/2014 Telephone Gastroenterology at [facility] [place] [phone] Samantha Vásquez APRN [facility] [place] [address] Social History Tobacco Use Types Packs/Day Years Used Date Smoking Tobacco: Never Alcohol Use Standard Drinks/Week Comments Yes 0 (1 standard drink = 0.6 oz pur e alcohol) Occasional Sex and Gender Information Value Date Recorded Sex Assigned at Not on file Gender Identity Not on file Sexual Orientation Not on file documented as of this encounter Miscellaneous Notes * Telephone Encounter - Samantha Vásquez APRN - 10/02/2014 11:39 AM EDT Contacted Mr Liu regarding the results of his EGD/Bx~hiatal hernia and Araiza's esophagus but normal stomach/duodenum. The Woodall ph study off PPI that revealed evidence of acid reflux on both days.Recommend he remain on Dexilant 60 mg qd. GERD diet and lifestyle modifications. Discuss the treatment options of GERD and Araiza's esophagus. He would like to revisit the txt options during his GIFon 10/17. I did my best to answer all of his questions. Consider referral to surgery for Gemini fundoplication. documented in this encounter Plan of Treatment Not on file documented as of this encounter Visit Diagnoses Not on filedocumented in this encounter Care Teams Prop Worker Relationship Specialty Start Date End Date Olya Bauman MD [address] [place] [address] PCP - General 01/29/11 documented as of this encounter
--- OUTSIDE RECORDS SUMMARY | 2023-12-25 15:23 | XMS_ITS | Encounter Summary ---
Author Organization [facility] Address [address] [place] [address] Care Team Providers Care Chair Upholsterer Name Role Phone Juana Olmedo NP Primary Care Provider [phone] Encounter Details Date Type Department Care Team (Late st Contact Info) Description 12/16/[address] [facility] - External Clinic [address] [place] [address] Juana Olmedo, ASUNCION [address] [place] [address] Pure hyperglyceridemia; Vitamin D deficiency, unspecified; Primary hypertension Social History Tobacco Use Types Packs/Day Years [...] Associated Diagnosis Comments VITAMIN D (25,OH) Routine 12/16/2023 8:0 0 EDT Vitamin D deficiency, unspecified LIPID PROFILE (INCLUDES CHOLESTEROL, TRIGLYCERIDES, HDL, LDL) Routine 12/16/2023 8:00 EDT Pure hyperglyceridemia COMPREHENSIVE METABOLIC PANEL (CMP) Routine 12/16/2023 8:00 EDT Primary hypertension documented in this encounter Results * COMPREHENSIVE METABOLIC PANEL (CMP) (12/16/2023 8:00 EDT) Sodium 139 136 - 145 mmol/L 12/16/2023 13:57 [facility] Potassium 4.2 3.5 - 5.0 mmol/L 12/16/2023 13:57 [facility] Chloride 103 96 - 110 mmol/L 12/16/2023 13:57 [facility] CO2 Total 28 22 - 32 mmol/L 12/16/2023 13:57 [facility] Glucose 94 70 - 99 mg/dl 12/16/2023 13:57 [facility] BUN 21 10 - 26 mg/dL 12/16/2023 13:57 [facility] Creatinine 1.10 0.66 - 1.25 mg/dL 12/16/2023 13:57 [facility] eGFR 89 >60 mL/min/1.7 3m2 12/16/2023 13:57 [facility] Total Protein 7.3 6.3 - 8.2 g/dL 12/16/2023 13:57 [facility] Albumin 4.4 3.4 - 4.9 g/dL 12/16/2023 13:57 [facility] Alkaline Phosphatase 51 38 - 126 U/L 12/16/2023 13:57 [facility] AST 46 15 - 46 U/L 12/16/2023 13:57 [facility] ALT 45 <50 U/L 12/16/2023 13:57 [facility] Bilirubin, Total 1.2 <1.4 mg/dL 12/16/19 13:57 [facility] Calcium 8.9 8.5 - 10.5 mg/dL 12/16/2023 13:57 [facility] Albumin/Globulin Ratio 1.5 1.0 - 2.5 12/16/2023 13:57 [facility] Anion Gap 8 5 - 14 mmol/L 12/16/2023 13:57 [facility] Blood VENOUS BLOOD / Unknown Venipuncture / Unknown 12/16/2023 8:00 EDT 12/16/2023 13:05 EDT Juana Olmedo NP CHEMISTRY & BLOOD GA S ORDERABLES Performing Organization Address City/[facility]/ZIP Co de Phone Number [facility] [address] [place] [address] * VITAMIN D (25,OH) (12/16/2023 8:00 EDT) Pathologist [facility] 25OH Vitamin D Tot 41 30 - 100 ng/mL 12/16/2023 14:14 EDT [facility] Blood VENOUS BLOOD / Unknown Venipuncture / Unknown 12/16/2023 8:00 EDT 12/16/2023 13:05 EDT Juana Olmedo NP CHEMISTRY & BLOOD GA S ORDERABLES Performing Organization Address City/[facility]/ZIP Co de Phone Number [facility] [address] [place] [address] * (ABNORMAL) LIPID PROFILE (INCLUDES CHOLESTEROL, TRIGLYCERIDES, HDL, LDL) (12/16/2023 8:00 EDT) Pathologist [facility] Cholesterol 145 <200 mg/dL 12/16/2023 13:57 [facility] Comment:Note that therapeuti c goals will differ between patients based on cardiac risk factors and current medical therapy. HDL 29(L) >=40 mg/dl 12/16/2023 13:57 [facility] Comment:Note that therapeuti c goals will differ between patients based on cardiac risk factors and current medical therapy. LDL, Calculated 79 <160 mg/dL 13:57 [facility] Comment:Note that therapeuti c goals will differ between patients based on cardiac risk factors and current medical therapy. Triglyceride 187(H) <=150 mg/dL 12/16/2023 13:57 [facility] Comment:Note that therapeuti c goals will differ between patients based on cardiac risk factors and current medical therapy. Chol/HDL Ratio 5.0 See Note 12/16/2023 13:57 [facility] Comment: NOTE: Desirable Ratio = <4.1 Patient At Risk Ratio = >5.0(Males) ?>6.0(Females) Non HDL Cholesterol 116 <160 mg/dL 12/16/2023 13:57 [facility] Comment:Note that therapeuti c goals will differ between patients based on cardiac risk factors and current medical therapy. Blood VENOUS BLOOD / Unknown Venipuncture / Unknown 12/16/2023 8:00 EDT 12/16/2023 13:05 EDT Juana Olmedo NP CHEMISTRY & BLOOD GA S ORDERABLES [facility] [address] [place] [address] documented in this encounter Visit Diagnoses Diagnosis Pure hyperglyceridemia Vitamin D deficiency, unspecified Primary hypertension Unspecified essential hypertension documented in this encounter Care Teams Chair Upholsterer Relationship Specialty Start Date End Date Juana Olmedo NP [address] [place] [phone] PCP - General 07/07/23 documented as of this encounter
--- OUTSIDE RECORDS SUMMARY | 2023-12-25 15:23 | XMS_ITS | Encounter Summary ---
Author Organization [facility] Address [address] [place] [address] Care Team Providers Care Accounting Auditor Name Role Phone Olya Bauman MD Primary Care Provider Encounter Details Date Type Department Care Team (Late st Contact Info) Description 02/24/2022 Results Only [facility] Laboratory Services - [facility] [address] [place] [address] Aydee Ellsworth, CERTIFIED MEDICAL TRANSCRIPTIONIST [address] [place], [place] [id number] Social History Tobacco Use Types Packs/Day Years [...] Procedure Name Priority Date/Time Associated Diagnosis Comments INFLUENZA, RSV PCR Routine 02/24/2022 9:13 EST documented in this encounter Results * INFLUENZA, RSV PCR (02/24/2022 9:13 EST) Influenza A PCR NEGATIVE NEGATIVE [facility] Influenza B PCR NEGATIVE NEGATIVE [facility] RSV PCR NEGATIVE NEGATIVE [facility] Covid-19 PCR NEGATIVE NEGATIVE [facility] Comment: This test has been authorized by FDA under an EUA for use by authorized laboratories. Negative results do not preclude SARS-CoV-2 infection and should not be used as the sole basis for treatment or other patient management decision. Negative results must be combined with clinical observations, patient history and epidemiological information. 02/24/2022 9:13 EST Aydee Ellsworth CERTIFIED MEDICAL TRANSCRIPTIONIST HEMATOLOGY & PF4 ORD ERABLES Performing Organization Address City/State/[facility] Co de Phone Number [facility] [address], [place] [phone] documented in this encounter Visit Diagnoses Not on filedocumented in this encounter Care Teams Accounting Auditor Relationship Specialty Start Date End Date Olya Bauman MD [address] [place], [place] [phone] PCP - General 11/05/17 07/06/23 documented as of this encounter
--- OUTSIDE RECORDS SUMMARY | 2023-12-25 15:23 | XMS_ITS | Clinical Summary ---
Author Organization [facility] Address [address] [place] [address] Care Team Providers Care Airline Operations Agent Name Role Phone Juana Olmedo NP Primary Care Provider [phone] Allergies Active Allergy Reactions Criticality Noted Date Comments Shellfish Containing Products Anaphylaxis High 07/06 Medications Medication Sig Dispensed Refills Start Date End Date Status albuterol 90 mcg/actuation inhaler Inhale 2 Puffs as directed every 4 hours as needed for Wheezing. Active cholecalciferol (VITAMIN D3) 50,000 unit capsule Take 1 Capsule by mouth once a week. Active omeprazole (PRILOSEC) 20 mg capsule Take 1 Capsule by mouth daily. Active losartan (COZAAR) 50 mg tablet Take 1 Tablet by mouth daily. 09/19/2020 Active Active Problems Problem Noted Date Diagnosed Date Esophageal reflux 06/19/2014 Encounters Date Type Department Care Team Description 12/16/2023 13:04 EDT - 12/16/2023 23:59 EDT Hospital Encounter [facility] - [facility] [place] [address] [place] [id number] Independent Producer, [facility] Discharge Disposition: Home or Self Care 12/16/2023 Orders Only [facility] - External Clinic [address] [place] [phone] Juana Olmedo NP Pure hyperglyceridemia; Vitamin D deficiency, unspecified; Primary hypertension 12/16/2023 Community Orders [facility] [address] [place] [phone] Juana Olmedo NP Primary hypertension (Primary Dx); Vitamin D deficiency, unspecified; Pure hyperglyceridemia 11/19/2023 10:50 EDT Office Visit [facility] ENT [address] [place] [address] Lowell Villeda MD Chronic cough (Primary Dx) from Last 3 Months Surgical History Surgery Date Site/Laterality Comments HAND SURGERY Right Medical History Medical History Date Comments Lung disease asthma GERD (gastroesophageal reflux disease) Hypertension Asthma Environmental allergies Family History Medical History Relation Comments Asthma Brother Heart Disease Father Relation Status Comments Brother Father Social History Tobacco Use Types Packs/Day Years [...] 8:42 EDT Sexual Orientation Not on file Obstetrics History Last Filed Vital Signs Vital Sign Reading Time Taken Comments Blood Pressure 135/79 07/07/2023 2200 EDT Pulse 104 07/07/20232030 EDT Temperature 36.1 ??C (97 ??F) 11/19/2023 0956 EDT Respiratory Rate 21 07/07/2023 2200 EDT Oxygen Saturation 97% 07/07/20232030 EDT Inhaled Oxygen Concentration - - Weight 104.3 kg (230 lb) 11/19/2023 0956 EDT Height 177.8 cm (5' 10) 11/19/2023 0956 EDT Body Mass Index 33 11/19/2023 0956 EDT Plan of Treatment Health Maintenance Due Date Last Done Comments Asthma Action Plan 1986 Hepatitis C Screen 1986 Lung Function Test (Spirometry) 1986 Hepatitis B Vaccine (1 of - + 3-dose series) 2005 COVID-19 Vaccine ( season) 10/25/202307/2020, 05/01/2020 Procedures Procedure Name Priority Date/Time Associated Diagnosis Comments COMPREHENSIVE METABOLIC PANEL (CMP) Routine 12/16/2023 8:00 EDT Primary hypertension VITAMIN D (25,OH) Routine 12/16/2023 8:0 0 EDT Vitamin D deficiency, unspecified LIPID PROFILE (INCLUDES CHOLESTEROL, TRIGLYCERIDES, HDL, LDL) Routine 12/16/2023 8:00 EDT Pure hyperglyceridemia from Last 3 Months Results * VITAMIN D (25,OH) (12/16/2023 8:00 EDT) 25OH Vitamin D Tot 41 30 - 100 ng/mL 12/16/2023 14:14 EDT [facility] Blood VENOUS BLOOD / Unknown Venipuncture / Unknown 12/16/2023 8:00 EDT 12/16/2023 13:05 EDT Juana Olmedo NP CHEMISTRY & BLOOD GA S ORDERABLES Performing Organization Address City/State/[facility] Co de Phone Number [facility] [address] [place] [address] * (ABNORMAL) LIPID PROFILE (INCLUDES CHOLESTEROL, TRIGLYCERIDES, HDL, LDL) (12/16/2023 8:00 EDT) Pathologist [facility] Cholesterol 145 <200 mg/dL 12/16/2023 13:57 T [facility] Comment:Note that therapeuti c goals will differ between patients based on cardiac risk factors and current medical therapy. HDL 29(L) >=40 mg/dl 12/16/2023 13:57 T [facility] Comment:Note that therapeuti c goals will differ between patients based on cardiac risk factors and current medical therapy. LDL, Calculated 79 <160 mg/dL 13:57 [facility] Comment:Note that therapeuti c goals will differ between patients based on cardiac risk factors and current medical therapy. Triglyceride 187(H) <=150 mg/dL 12/16/2023 13:57 [facility] Comment:Note that therapeuti c goals will differ between patients based on cardiac risk factors and current medical therapy. Chol/HDL Ratio 5.0 See Note 12/16/2023 13:57 [facility] Comment: NOTE: Desirable Ratio = <4.1 Patient At Risk Ratio = >5.0(Males) ?>6.0(Females) Non HDL Cholesterol 116 <160 mg/dL 12/16/2023 13:57 [facility] Comment:Note that therapeuti c goals will differ between patients based on cardiac risk factors and current medical therapy. Blood VENOUS BLOOD / Unknown Venipuncture / Unknown 12/16/2023 8:00 EDT 12/16/2023 13:05 EDT Juana Olmedo NP CHEMISTRY & BLOOD GA S ORDERABLES Performing Organization Address City/State/[facility] Co de Phone Number [facility] [address] [place] [address] * COMPREHENSIVE METABOLIC PANEL (CMP) (12/16/2023 8:00 EDT) Sodium 139 136 - 145 mmol/L 12/16/2023 13:57 [facility] Potassium 4.2 3.5 - 5.0 mmol/L 12/16/2023 13:57 [facility] Chloride 103 96 - 110 mmol/L 12/16/2023 13:57 [facility] CO2 Total 28 22 - 32 mmol/L 12/16/2023 13:57 [facility] Glucose 94 70 - 99 mg/dl 12/16/2023 13:57 [facility] BUN 21 10 - 26 mg/dL 12/16/2023 13:57 [facility] Creatinine 1.10 0.66 - 1.25 mg/dL 12/16/2023 13:57 [facility] eGFR 89 >60 mL/min/1.7 3m2 12/16/2023 13:57 [facility] Total Protein 7.3 6.3 - 8.2 g/dL 12/16/2023 13:57 [facility] Albumin 4.4 3.4 - 4.9 g/dL 12/16/2023 13:57 [facility] Alkaline Phosphatase 51 38 - 126 U/L 12/16/2023 13:57 [facility] AST 46 15 - 46 U/L 12/16/2023 13:57 [facility] ALT 45 <50 U/L 12/16/2023 13:57 [facility] Bilirubin, Total 1.2 <1.4 mg/dL 12/16/19 13:57 [facility] Calcium 8.9 8.5 - 10.5 mg/dL 12/16/2023 13:57 [facility] Albumin/Globulin Ratio 1.5 1.0 - 2.5 12/16/2023 13:57 [facility] Anion Gap 8 5 - 14 mmol/L 12/16/2023 13:57 [facility] Blood VENOUS BLOOD / Unknown Venipuncture / Unknown 12/16/2023 8:00 EDT 12/16/2023 13:05 EDT Juana Olmedo NP CHEMISTRY & BLOOD GA S ORDERABLES Performing Organization Address City/State/[facility] Co de Phone Number [facility] [address] [place] [address] from Last 3 Months Care Teams Airline Operations Agent Relationship Specialty Start Date End Date Juana Olmedo NP [address] [place] [phone] PCP - General 07/07/23
--- OUTSIDE RECORDS SUMMARY | 2023-12-25 15:23 | XMS_ITS | Encounter Summary ---
Author Organization [facility] Address [address] [place] [address] Care Team Providers Care Oracle Application Architect Name Role Phone NathanJuana hu ASUNCION Primary Care Provider [phone] Reason for Visit * Reason Comments Cough 3 long episodes of c oughing months. Symptoms better now.symptoms were severe. Took steroids and antibiotics inhalers. Hx of barrets esophagus * Referral (Routine) - Authorization Not Required Specialty Diagnoses / Procedures Referred By [facility] Referred To Contact Otolaryngology Diagnoses Cough, unspecified Garrett Bowling MD [address] [phone] [facility] [address] [place] [id number] Referral ID Status Reason Start Date Expiration Date Visits Requested Visits Authorized [id number] Authorization Not Required 1 1 Encounter Details Date Type Department Care Team (Late st Contact Info) Description 11/19/2023 10:50 EDT Office Visit [facility] [address] [place] [address] Lowell Villeda MD [address] [place] [address] [address] [place] [address] Chronic cough (Primary Dx) Social History Tobacco Use [...] Sign Reading Time Taken Comments Blood Pressure - - Pulse - - Temperature 36.1 ??C (97 ??F) 11/19/2023 0956 EDT Respiratory Rate - - Oxygen Saturation - - Inhaled Oxygen Concentration - - Weight 104.3 kg (230 lb) 11/19/2023 0956 EDT Height 177.8 cm (5' 10) 11/19/2023 0956 EDT Body Mass Index 33 11/19/2023 0956 EDT documented in this encounter Functional Status Functional [...] No 11/06/2017 documented as of this encounter Progress Notes * Lowell Villeda MD - 11/19/2023 1050 EDT CHIEF COMPLAINT: Chronic cough HPI: 38-year-old male with 3 episodes of severe coughing paroxysms. His symptoms have improved overtime. He was treated with steroids and antibiotics and inhalers. He has a history of gastroesophageal reflux disease and Araiza's esophagus as well as allergies and asthma. Past Medical History: Diagnosis Date Asthma Environmental allergies GERD (gastroesophageal reflux disease) Hypertension Lung disease asthma Past Surgical History: Procedure Laterality Date HAND SURGERY Right Allergies Allergen Reactions Shellfish Containing Products Anaphylaxis Outpatient Medications Marked as Taking for the 11/19/23 encounter (Office Visit) with Lowell Villeda MD Medication Sig Dispense Refill albuterol 90 mcg/actuation inhaler Inhale 2 Puffs as directed every 4 hours as needed for Wheezing. cholecalciferol (VITAMIN D3) 50,000 unit capsule Take 1 Capsule by mouth once a week. losartan (COZAAR) 50 mg tablet Take 1 Tablet by mouth daily. omeprazole (PRILOSEC) 20 mg capsule Take 1 Capsule by mouth daily. Family History Problem Relation Age of Onset Heart Disease Father Asthma Brother Social History Socioeconomic History Marital status: Spouse name: Not on file Number of children: Not on file Years of education: Not on file Highest education level: Not on file Occupational History Not on file Tobacco Use Smoking status: Never Smokeless tobacco: Never Substance and Sexual Activity Alcohol use: Yes Alcohol/week: 10.0 standard drinks of alcohol Types: 10 Cans of beer per week Drug use: Never Sexual activity: Not on file Other Topics Concern Not on file Social History Narrative Not on file Social Determinants of Health Financial Strain: Not on file Food Insecurity: Not on file Transportation Needs: Not on file Physical Activity: Not on file Housing Stability: Not on file REVIEW OF SYSTEMS: Significant for cough shortness of breath hoarseness heartburn reflux otherwise negative for complete review of all systems PHYSICAL EXAM: Temp 36.1 ??C (97 ??F) Ht 177.8 cm (70) Wt (!) 104.3 kg (230 lb) BMI 33.00 kg/m?? General: Well-developed well-nourished alert oriented cooperative adult male no acute distress. Normal voice. The face is normal without lesions. No tenderness. Facial strength is symmetric. Eye examis normal. Ears: External ears are normal canals are clear tympanic membranes are normal hearing isintact. Nose: Nasal dorsum is midline the anterior nasal airway is patent. Oral cavity: Lips tongue floor mouth and buccal mucosa are normal. Posterior pharynx is clear. Neck: No pathologic lymphadenopathy trachea is midline thyroid is normal. Procedure: Fiberoptic endoscopy was performed with topical anesthesia. This reveals a right nasal septal deviation without obstruction. The middle meatus and sphenoethmoid recesses are clear. The base of tongue epiglottis vallecula piriform sinuses false vocal cords and true vocal cords are within normal limits. There is some interarytenoid edema but no cyst polyps nodules or tumor. CPT 93970 [facility] ENT MD Endoscopy Procedure Note Pre-procedure Diagnosis: Chronic cough Post-procedure Diagnosis: same Indications: - not able to be clearly evaluated by indirect laryngoscopy. Evaluation of the larynx and immediate subglottis - unable to be visualized by mirror examination. Anesthesia: Cophenylcaine Endoscopy Type: Laryngoscopy using a flexible laryngoscope Procedure Details: With the patient sitting upright in the examining chair, informed consent was obtained. The right nostril was topically anesthetized with spray. After waiting an appropriate period of time for anesthesia/vasoconstriction to become effective (if this was applicable), the scope was passed into the oropharynx and the nasopharynx, oropharynx, hypopharynx, and the larynx were examined. Procedure Details: Patient tolerated procedure well and left the office in a stable condition. Complications: None Findings: Oropharynx: Normal exam of tongue base, tonsils, and posterior pharynx Hypopharynx: Normal piriform sinuses noted, no pooling of secretions Supraglottis: The base of tongue, epiglottis, and vallecula are normal Posterior Commissure: no lesions, interarytenoid edema Right True Vocal Fold: Normal Left True Vocal Fold: Normal Vocal Fold Mobility: Normal bilaterally Glottic Closure: Complete Subglottis: Is clear IMPRESSION: Deviated septum, laryngeal edema, resolving cough. PLAN: LPR instructions were given to the patient and discussed in detail. Follow-up with ENT as needed. documented in this encounter Plan of Treatment Not on file documented as of this encounter Visit Diagnoses Diagnosis Chronic cough- Primary Cough documented in this encounter Discontinued Medications Medication Sig Discontinue Reason Start Date End Da te amoxicillin-clavulanate (AUGMENTIN) 875-125 mg per tablet TAKE ONE TABLET BY MOUTH TWICE A DAY FOR SINUS INFECTION 02/24/2022 11/19/2023 benzonatate (TESSALON) 100 mg capsule TAKE TWO CAPSULES BY MOUTH THREE TIMES A DAY NEEDED FOR COUGH 02/24/2022 11/19/2023 guaiFENesin-codeine (GUAIFENESIN AC) 100-10 mg/5 mL liquidIndications:Acute cough Take 5-10 mL by mouth 4 times daily as needed for Cough. Daily Max: 40 mL 03/04/2022 11/19/2023 documented as of this encounter Care Teams Oracle Application Architect Relationship Specialty Start Date End Date Juana Olmedo NP [address] [place] [phone] PCP - General 07/07/23 documented as of this encounter
--- OUTSIDE RECORDS SUMMARY | 2023-12-25 15:23 | XMS_ITS | Encounter Summary ---
Author Organization [facility] [place] [address] Care Team Providers Care Display Card Writer Name Role Phone Olya Bauman MD Primary Care Provider [phone] Reason for Visit * Reason Comments Gastroesophageal Reflux Encounter Details Date Type Department Care Team (Latest Contact Info) Description 06/19/2014 8:00 AM EDT Office Visit Gastroenterology at [facility] [place] [address] Samantha Vásquez APRN [facility] [place] [address] Gastroesophageal reflux disease without esophagitis Discharge Disposition: Home Social History Tobacco Use [...] Sign Reading Time Taken Comments Blood Pressure 132/82 06/19/2014 8:03 AM EDT Pulse 57 06/19/2014 8:03 AM EDT Temperature - - Respiratory Rate - - Oxygen Saturation - - Inhaled Oxygen Concentration - - Weight 101.8 kg (224 lb 8 oz) 06/19/2014 8:03 AM EDT Height 177.8 cm (5' 10) 06/19/2014 8:03 AM EDT Body Mass Index 32.21 06/19/2014 8:03 AM EDT documented in this encounter Patient Instructions * Patient Instructions* Samantha Vásquez APRN - 06/19/2014 8:35 AM EDT 1. Upper endoscopy with biopsies 2. Woodall ph study off Dexilant. You will stop taking Dexilant seven days before the upper endoscopythen resume Dexilant after completing the study 3. Dexilant 60 mg daily on an empty stomach 30 minutes before breakfast 4. GERD diet and lifestyle modifications 5. Recommend eating smaller more frequent 5-6 low fat meals per day 6. Follow up 2-3 weeks after testing Samantha Vásquez SYSTEMS SOFTWARE SPECIALIST [phone] documented in this encounter Progress Notes * Samantha Vásquez APRN - 06/19/2014 7:31 AM EDT Subjective: Patient ID: Shaka Liu is a 28 y.o. man who presents for further evaluation of his gastrointestinal symptoms at the request of Dr Bauman . HPI Comments: Shaka Liu is a pleasant 28 year old man who presents for consultation of his GERDsymptoms. He reports a experiencing GERD symptoms for [...] Negative. Allergies: NKDA Medications: reviewed in edh dexlansoprazole (DEXILANT) 60 mg CpDM; betamethasone dipropionate (DIPROLENE) 0.05 % cream; ammonium lactate (LAC-HYDRIN) 12 % lotion Past Medical History Diagnosis Date ??? Dermatitis ??? GERD (gastroesophageal reflux disease) Past Surgical History Procedure Laterality Date ??? Hand surgery History Social History ??? Marital Status: Single Spouse Name: N/A Number of Children: N/A ??? Years of Education: N/A Occupational History ??? Not on file. Social History Main Topics ??? Smoking status: Never Smoker ??? Smokeless tobacco: Not on file ??? Alcohol Use: Yes Comment: Occasional ??? Drug Use: No ??? Sexual Activity: Not on file Other Topics Concern ??? Not on file Social History Narrative FMHx: no h/o colon or esophageal cancer; IBD; celiac disease; liver or pancreatic disease Vital Signs: BP 132/82; P 57; Wt 224 lbs 8 oz; Ht 5'10 Objective: Physical Exam Constitutional: He is oriented to person, place, and time. He appears well- developed and well-nourished. No distress. HENT: Head: Normocephalic and atraumatic. Mouth/Throat: Oropharynx is clear and moist. No oropharyngeal exudate. Eyes: Conjunctivae and EOM are normal. Pupils are equal, round, and reactive to light. Right eye exhibits no discharge. Left eye exhibits no discharge. No scleral icterus. Neck: Normal range of motion. Neck supple. No JVD present. No tracheal deviation present. No thyromegaly present. Cardiovascular: Normal rate, regular rhythm, normal heart sounds and intact distal pulses. Exam reveals no gallop and no friction rub. No murmur heard. Pulmonary/Chest: Effort normal and breath sounds normal. No stridor. No respiratory distress. He has no wheezes. He has no rales. He exhibits no tenderness. Abdominal: Soft. Bowel sounds are normal. He exhibits no distension and no mass. There is no tenderness. There is no rebound and no guarding. No hepatosplenomegaly. No succussion splash. No epigastric bruit. Genitourinary: Rectal exam deferred. Lymphadenopathy: He has no cervical adenopathy. Neurological: He is alert and oriented to person, place, and time. No cranial nerve deficit. Skin: Skin is warm and dry. No rash noted. He is not diaphoretic. No erythema. No pallor. Psychiatric: He has a normal mood and affect. His behavior is normal. Judgment and thought content normal. Vitals reviewed. Assessment and Plan: Shaka Liu is a pleasant 28 year old man who presents for consultation of his GERD symptoms. Discussed the etiology, pathophysiology, diagnostic tests and treatment of GERD. He is unsure at this about wether or not to consider surgery but amenable to proceeding with testing and re-evaluate aftertesting. Recommend proceeding with EGD with biopsies and Woodall ph study off Dexilant. Continue Dexilant 60 mg qd but could consider decreasing dose to 30 mg but await results of EGD/Woodall ph study. GERD diet and lifestyle modifications. Await results for further management. Consider esophageal manometry. I did my best to answer all of his questions. The following plan was formulated. Plan: 1. Upper endoscopy with biopsies 2. Woodall ph study off Dexilant. Instructed patient to stop taking Dexilant seven days before the EGD then resume Dexilant after completing the study 3. Dexilant 60 mg qd on an empty stomach 30 minutes before breakfast 4. GERD diet and lifestyle modifications 5. Recommend eating smaller more frequent 5-6 low fat meals per day 6. Follow up 2-3 weeks after testing Patient understands and is agreeable to the above plan. Written instructions provided. I spent a total of 45 minutes face to face with this patient; 26 minutes were spent counseling the patient in the medical problems described above. Thank you for the referral, Samantha Vásquez APRN Section of Gastroenterology [place] [address] documented in this encounter Plan of Treatment Scheduled Orders Name Type Priority Associated Diagnoses Orde r Schedule UPPER GI ENDOSCOPY Procedures Routine Gastroesophageal reflux disease without esophagitis Ordered: 06/19/2014 documented as of this encounter Visit Diagnoses Diagnosis Gastroesophageal reflux disease without esophagitis Esophageal reflux documented in this encounter Care Teams Display Card Writer Relationship Specialty Start Date End Date Olya Bauman MD [address] [place] [phone] PCP - General 01/29/11 documented as of this encounter
--- OUTSIDE RECORDS SUMMARY | 2023-12-25 15:23 | XMS_ITS | Encounter Summary ---
Author Organization [facility] Address [facility] [place] [address] Care Team Providers Care Clerical Office Name Role Phone Olya Bauman MD Primary Care Provider [phone] Encounter Details Date Type Department Care Team (Latest Contact Info) Description 09/06/2014 11:18 AM EDT - 09/06/2014 2:00 PM EDT Hospital En[place] [id number] Jacob Jaffe MD [facility] [address] [place] [address] Discharge Disposition: Home Social History Tobacco Use [...] Other Instructions Be sure to carry your dynamometer mechanic within 3 feet at all times . [...] not get better as expected. Thursday-Thursday Clinic [phone] 8a-5p Same Day Endo [phone] 7a-8p Otherwise contact [phone] and ask to speak to the airport tower controller national guard member Kylee Riggins RN [phone] if any problems with dynamometer mechanic Follow-up care is a hope part of [...] Take 60 mg by mouth daily. ACETYLCYSTEINE (L-KNCUNF-K-CYSTEINE MISC) by Misc.(Non-Drug; Combo Route) route. 10/17/2014 betamethasone dipropionate (DIPROLENE) [...] (09/06/2014 12:59 PM EDT) Final Diagnosis ? [facility] ? Provider: ?? JACOB JAFFE ?? Pt. Name: ?? LUZ ELENA JON ? Acc #: ?[id number] ?Pt. ? Col Date: ?? 09/06/2014 ? [...] Clinical History: ? 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 [facility] ? Provider: ?? JACOB JAFFE ?? Pt. Name: ?? LUZ ELENA JON ? Acc #: ?[id number] ?Pt. ? Col Date: ?? 09/06/2014 ? /Sex: ?1985,(29 years),Male ? Rec Date: ?? 09/06/2014 ? LOC: ?4T ? SURGICAL PATHOLOGY ? Clinical Diagnosis: ? Same 09/07/2014 2:06 PM EDT [facility] GI Biopsy 09/06/2014 12:5 9 PM EDT 09/06/2014 12:59 PM EDT GI Biopsy 09/06/2014 12:5 9 PM EDT 09/06/2014 12:59 PM EDT Jacob Jaffe MD PATHOLOGY/CYTOLOGY O ANDREW Performing Organization Address City/[facility] Co de Phone Number [facility] [place] [address] * Specimen to Pathology (surgical or derm) (09/06/2014 12:59 PM EDT) AP Specimen 09/06/2014 12:5 9 PM EDT 09/06/2014 12:59 PM EDT Narrative [facility] - 09/06/2014 12:59 PM EDT Specimen requisition ordered. ??Separate Pathology report to follow Jacob Jaffe MD PATHOLOGY/CYTOLOGY O ANDREW [facility] * Specimen to Pathology (surgical or derm) (09/06/2014 12:59 PM EDT) AP Specimen 09/06/2014 12:5 9 PM EDT 09/06/2014 12:59 PM EDT Narrative [facility] - 09/06/2014 12:59 PM EDT Specimen requisition ordered. ??Separate Pathology report to follow Jacob Jaffe MD PATHOLOGY/CYTOLOGY O ANDREW [facility] * UPPER GI ENDOSCOPY (09/06/2014 12:15 PM EDT) UPPER GI ENDOSCOPY [facility] Endoscopy Patient Name: Luz Elena Jon ? Procedure Date: 09/06/2014 12:15 PM ? N: [id number] ? Date of : 1985 ? Age: 29 ? Order #: [id number] ? Procedure: ? Upper GI endoscopy Indications: ? Heartburn, Suspected ? gastro-esophageal reflux disease Providers: ? Jacob Jaffe MD, Omaira Crouch, ? RN, Venkat Lieberman, Mushroom Packer Referring MD: ?Olya Bauman MD Medicines: ? [...] MAR Action Action Date Dose Rate Site ondansetron (ZOFRAN-ODT) oral disintegrating tablet 4 mg [...] Omaira Crouch RN)1245 (Given - Provider: Omaira Crouch RN)1249 (Given - Provider: Omaira Crouch RN) ondansetron (ZOFRAN-ODT) oral disintegrating tablet 4 mg (CANCELED) 4 mg, Oral, EVERY 8 HOURS PRN, Starting on Thu09/06/14 at 1354, Until Thu09/06/14 at 1810, Nausea, Endoscopy (Recovery-Hospital Unit), Routine 1350 (Given - Provid er: Ruthann Encarnacion RN) documented in this encounter Care Teams Clerical Office Relationship Specialty Start Date End Date Olya Bauman MD [address] [place] [address] PCP - General 01/29/11 documented as of this encounter
--- OUTSIDE RECORDS SUMMARY | 2023-12-25 15:23 | XMS_ITS | Referral Summary ---
Author Organization [facility] Address [address] [place] [address] Care Team Providers Care Stone Planer Name Role Phone uJana Olmedo NP Primary Care Provider [phone] Encounters Date Type Department Care Team Description 12/16/2023 Orders Only [address] [address] Juana Olmedo NP Pure hyperglyceridemia; Vitamin D deficiency, unspecified; Primary hypertension 12/16/2023 13:04 EDT - 12/16/2023 23:59 EDT Hospital Encounter [facility] - [facility] [place] [address] [place] [address] Facilities Maintenance Supervisor, [facility] Discharge Disposition: Home or Self Care 12/16/2023 Community Orders [address] [address] Juana Olmedo NP Primary hypertension (Primary Dx); Vitamin D deficiency, unspecified; Pure hyperglyceridemia 11/19/2023 10:50 EDT Office Visit [facility] ENT [address] [place] [address] Lowell Villeda MD Chronic cough (Primary Dx) from Last 3 Months Allergies Active Allergy Reactions Criticality Noted Date [...] Noted Date Diagnosed Date Esophageal reflux 06/19/2014 Social History Tobacco Use Types Packs/Day Years [...] 8:42 EDT Sexual Orientation Not on file Last Filed Vital Signs Vital Sign Reading Time Taken Comments Blood Pressure 135/79 07/07/20230 EDT Pulse 104 07/07/20232030 EDT Temperature 36.1 ??C (97 ??F) 11/19/2023 0956 EDT Respiratory Rate 21 07/07/2023 2200 EDT Oxygen Saturation 97% 07/07/20232030 EDT Inhaled Oxygen Concentration - - Weight 104.3 kg (230 lb) 11/19/2023 0956 EDT Height 177.8 cm (5' 10) 11/19/2023 0956 EDT Body Mass Index 33 11/19/2023 0956 EDT Functional Status Functional Status Response Date of [...] concentrating, remembering, or making decisions? No 11/06/2017 Plan of Treatment Not on file Procedures Procedure Name Priority Date/Time Associated Diagnosis [...] 30 - 100 ng/mL 12/16/2023 14:14 EDT [facility] Blood VENOUS BLOOD / Unknown Venipuncture / Unknown 12/16/2023 8:00 EDT 12/16/2023 13:05 EDT Juana Olmedo NP CHEMISTRY & BLOOD GA S ORDERABLES [facility] [address] [place] [address] * (ABNORMAL) LIPID PROFILE (INCLUDES CHOLESTEROL, TRIGLYCERIDES, HDL, LDL) (12/16/2023 8:00 EDT) Cholesterol 145 <200 mg/dL 12/16/2023 13:57 [facility] Comment:Note that therapeuti c goals will differ between patients based on cardiac risk factors and current medical therapy. HDL 29(L) >=40 mg/dl 12/16/2023 13:57 [facility] Comment:Note that therapeuti c goals will differ between patients based on cardiac risk factors and current medical therapy. LDL, Calculated 79 <160 mg/dL 13:57 [facility] Comment:Note that therapeuti c goals will differ between patients based on cardiac risk factors and current medical therapy. Triglyceride 187(H) <=150 mg/dL 12/16/2023 13:57 [facility] Comment:Note that therapeuti c goals will differ between patients based on cardiac risk factors and current medical therapy. Chol/HDL Ratio 5.0 See Note 12/16/2023 13:57 [facility] Comment: NOTE: Desirable Ratio = <4.1 Patient At Risk Ratio = >5.0(Males) ?>6.0(Females) Non HDL Cholesterol 116 <160 mg/dL 12/16/2023 13:57 [facility] Comment:Note that therapeuti c goals will differ between patients based on cardiac risk factors and current medical therapy. Blood VENOUS BLOOD / Unknown Venipuncture / Unknown 12/16/2023 8:00 EDT 12/16/2023 13:05 EDT Juana Olmedo NP CHEMISTRY & BLOOD GA S ORDERABLES [facility] [address] [place] [address] * COMPREHENSIVE METABOLIC PANEL (CMP) (12/16/2023 8:00 EDT) Sodium 139 136 - 145 mmol/L 12/16/2023 13:57 [facility] Potassium 4.2 3.5 - 5.0 mmol/L 12/16/2023 13:57 [facility] Chloride 103 96 - 110 mmol/L 12/16/2023 13:57 [facility] CO2 Total 28 22 - 32 mmol/L 12/16/2023 13:57 [facility] Glucose 94 70 - 99 mg/dl 12/16/2023 13:57 [facility] BUN 21 10 - 26 mg/dL 12/16/2023 13:57 [facility] Creatinine 1.10 0.66 - 1.25 mg/dL 12/16/2023 13:57 [facility] eGFR 89 >60 mL/min/1.7 3m2 12/16/2023 13:57 [facility] Total Protein 7.3 6.3 - 8.2 g/dL 12/16/2023 13:57 [facility] Albumin 4.4 3.4 - 4.9 g/dL 12/16/2023 13:57 [facility] Alkaline Phosphatase 51 38 - 126 U/L 12/16/2023 13:57 [facility] AST 46 15 - 46 U/L 12/16/2023 13:57 [facility] ALT 45 <50 U/L 12/16/2023 13:57 [facility] Bilirubin, Total 1.2 <1.4 mg/dL 12/16/19 13:57 [facility] Calcium 8.9 8.5 - 10.5 mg/dL 12/16/2023 13:57 [facility] Albumin/Globulin Ratio 1.5 1.0 - 2.5 12/16/2023 13:57 [facility] Anion Gap 8 5 - 14 mmol/L 12/16/2023 13:57 [facility] Blood VENOUS BLOOD / Unknown Venipuncture / Unknown 12/16/2023 8:00 EDT 12/16/2023 13:05 EDT Juana Olmedo NP CHEMISTRY & BLOOD GA S ORDERABLES Performing Organization Address [facility] Co de Phone Number [facility] [address] [place] [address] from Last 3 Months Care Teams Stone Planer Relationship Specialty Start Date End Date Juana Olmedo NP [address] [place] [phone] PCP - General 07/07/23
--- OUTSIDE RECORDS SUMMARY | 2023-12-25 15:24 | XMS_ITS | Encounter Summary ---
Author Organization [facility] Address [address] [place] [address] Care Team Providers Care Waiter/Waitress Dining Car Name Role Phone Olya Bauman MD Primary Care Provider [phone] Reason for Referral * PT/OT/ST (Routine) - Specialty Report Received Specialty Diagnoses / Procedures [facility] Referred To Contact Diagnoses Metatarsalgia of right foot Venkat Wakefield DPM [address] [place] [address] [facility] [address] [address] Referral ID Status Reason Start Date Expiration Date Visits Requested Visits Authorized [id number] Specialty Report Received Specialty Services Required 10/08/2020 1 1 Question Answer Reason for Request: Custom foot orthotics Reason for Visit * Reason Comments Follow-up Encounter Details Date Type Department Care Team (Late st Contact Info) Description 10/02/2020 15:30 EDT Office Visit [facility] Orthopedics & Podiatry [address], [address] [place], [place] [id number] Venkat Wakefield DPM [address] [place] [address] Metatarsalgia of right foot (Primary Dx); Neuritis of right foot; Hallux valgus, right Social History Tobacco Use Types Packs/Day Years Used Date Smoking Tobacco: Never Smokeless Tobacco: Never Interpersonal Safety Answer Date Record ed Physically Hurt Never 09/25/2019 Verbally Threaten Not on file 09/25/2019 Sex and Gender Information Value Date Recorded Sex Assigned at Not on file Gender Identity Male 09/10/2020 8:42 EDT Sexual Orientation Not on file COVID-19 Exposure Response Date Recorded In the last month, have you been in contact with someone who was confirmed or suspected to have Coronavirus / COVID-19? No / Unsure 10/02/2020 15:31 EDT documented as of this encounter Last Filed Vital Signs Vital Sign Reading Time Taken Comments Blood Pressure - - Pulse 76 10/02/2020 153 EDT Temperature 35.6 ??C (96.1 ??F) 10/02/2020 153 EDT Respiratory Rate - - Oxygen Saturation 98% 10/02/2020 153 EDT Inhaled Oxygen Concentration - - Weight 104.3 kg (230 lb) 10/02/2020 153 EDT Height 177.8 cm (5' 10) 10/02/2020 153 EDT Body Mass Index 33 10/02/2020 153 EDT documented in this encounter Functional Status [...] this encounter Patient Instructions * Patient Instructions* Venkat Wakefield DPM - 10/02/2020 15:30 EDT Purchase Appdra XPE orthotics, 3 degrees, size 5. Expect a call from PT for custom orthotics also. documented in this encounter Progress Notes * Venkat Wakefield DPM - 10/02/2020 1530 EDT POC: ASSESSMENT AND PLAN 1. Metatarsalgia of right foot 2. Neuritis of right foot- Suspect that this is just from pressure on the medial proper digital nerve of the hallux. 3. Pes cavus, congenital- Moderate degree. No neurologic cause is evident, suspect this is congenital ?? Explained exam findings. Discussed his structure and biomechanics. We should first address this with our treatment as it is likely the underlying cause of his symptoms. Suggested one of the very few OTC orthotics that is made for a cavus foot type, Vasyli Manav model. During the first week he should do a gradual break-in starting with 1 hour the first day and add 1 hour each day. ?? Reevaluate in a few weeks. Repeat gait analysis with orthotics. Orthotic adjustment as necessary. Consider further diagnostic testing if symptoms have progressed or at least not improved. SUBJECTIVE: Chief Complaint Patient presents with ??? Right Foot - Follow-up HPI Shaka Liu is a 35 y.o. male presenting in clinic today for a follow up of metatarsalgia of Right foot. Last seen on 09/10/20. Has noticed pain less. Not sure if just getting used to it or if it is really getting better. It isnever bad or high degree of pain, Symptoms are dull ache and tingly numbness. The past medical, family and social history have been reviewed in the patient chart. Medications and allergies reviewed. Review of Systems Constitutional: negative for, fever, fatigue, malaise. Musculoskeletal: Positive for foot pain. Dermatologic: Negative for, rash, discoloration, lesions. Neurological: Positive for partial numbness and tingling right foot. Negative for weakness. OBJECTIVE: Pulse 76 Temp 35.6 ??C (96.1 ??F) Ht 177.8 cm (70) Wt (!) 104.3 kg (230 lb) SpO2 98% BMI33.00 kg/m?? Body mass index is 33 kg/m??. General Exam: Alert and oriented. No acute distress. Appropriate affect. Normal cognition. Dermatologic Exam: No contributory dermal lesions Orthopedi exam: Pain on palpation left fifth metatarsal. Pain is present along most of the length with the exception of the head of the metatarsal. Positive metatarsal squeeze test. Pain somewhat in the interspace but also directly on the shaft of the metatarsal. No pain with passive motion or nonweightbearing active motion. However resisted motion had pain with eversion and with plantarflexion. Xray of right foot today, 3 weightbearing views, which I independently evaluated: Mild to moderate pes planus. Fault is at the navicular cuneiform joint. Mild first metatarsal elevatus. Overall bone stock appears normal. No radiographic fifth metatarsal pathology. No significant osteoarthritis. Mild hallux valgus with some prominence to the medial fifth metatarsal head. Neurologic Exam: Very slight sensory deficit distal medial right great toe where he fails the 10 g monofilament. Does detect 50 g of pressure here. ASSESSMENT AND PLAN: 1. Metatarsalgia of right foot - XR FOOT RIGHT 3 OR MORE VIEWS While the current orthotics (Alimed BFO) works decent, but is not proving durable enough and is already extremely worn. Recommend he replace this with an Moreix Isabella XPE orthotic, 3 degree posted,size 5. He will purchase online. This will prove more durable but still will be inadequate so a prescription/referral for custom orthotics will be sent to physical therapy. 2. Neuritis of right foot 3. Hallux valgus, right I do not see any other reason to explain the distal medial hallux neuralgia, most likely it is frompressure on the medial proper digital nerve of the hallux from the bunion prominence. Patient Active Problem List Diagnosis ??? Esophageal reflux No past medical history on file. No past surgical history on file. Social History Tobacco Use ??? Smoking status: Never Smoker ??? Smokeless tobacco: Never Used Substance Use Topics ??? Alcohol use: Not on file No family history on file. Current Outpatient Medications Medication Sig Dispense Refill ??? albuterol 90 mcg/actuation inhaler Inhale 180 mcg as directed every 4 hours as needed for Wheezing. ??? cholecalciferol (VITAMIN D3) 50,000 unit capsule Take 50,000 Units by mouth once a week. ??? dexlansoprazole (DEXILANT) 60 mg capsule Take 60 mg by mouth daily. ??? erythromycin (ROMYCIN) 5 mg/gram (0.5 %) ophthalmic ointment Place 1 cm into the right eye 4 times daily. 5-7 days ??? losartan (COZAAR) 50 mg tablet Take 50 mg by mouth daily. ??? omeprazole (PRILOSEC) 20 mg capsule Take 20 mg by mouth daily. No current facility-administered medications for this visit. No Known Allergies Veknat Wakefield DPM [facility] [place], [place] documented in this encounter Plan of Treatment Scheduled Orders Name Type Priority Associated Diagnoses Orde r Schedule XR FOOT RIGHT 3 OR MORE VIEWS Imaging Routine Metatarsalgia of right foot Ordered: 10/08/2020 Scheduled Referrals Name Type Priority Associated Diagnoses Orde r Schedule AMB CONS/FOLLOW UP PHYSICAL THERAPY Outpatient Referral Routine Metatarsalgia of right foot Ordered: 10/08/2020 documented as of this encounter Procedures Procedure Name Priority Date/Time Associated Diagnosis Comments XR FOOT RIGHT 3 OR MORE VIEWS 10/02/2020 16:24 EDT documented in this encounter Results * XR FOOT RIGHT 3 OR MORE VIEWS (10/02/2020 16:24 EDT) Anatomical Region Laterality Modality Lower Extremities Right Computed Radio graphy 10/02/2020 16:2 4 EDT Narrative 10/02/2020 16:24 EDT ? EXAM: RADIOLOGY/FOOT RIGHT 3+VIEW ? EX. D/ (1602) ? CLINICAL INFORMATION: ? M77.41.Q66.70. METATARSALGIA OF RIGHT FOOT. ? PROCEDURE INFORMATION: ? Exam: XR Right Foot ? Exam date and time: 10/02/2020 3:49 PM ? Age: 35 years old ? Clinical indication: Pain; Foot; Right; Additional info: M77.41. ? Q66.70. Metatarsalgia of right foot. ? TECHNIQUE: ? Imaging protocol: XR Right foot. ? Views: 3 or more views. ? COMPARISON: ? No relevant prior studies available. ? FINDINGS: ? Bones/joints: No acute fracture or dislocation is identified. ? There is a very small posterior calcaneal enthesophyte. There is ? no osseous erosion or cortical destruction. ? Soft tissues: The soft tissues appear grossly unremarkable. ? IMPRESSION: ? Very small posterior calcaneal enthesophyte. ? REPORT SIGNED IN OTHER VENDOR SYSTEM 10/02/2020 ?Reported By: Jamar Morelos MD ? CC: ? Transcribed Date/Time: 10/02/2020 (0654) ? Greens Planter: AD ? Printed Date/Time: 10/02/2020 (2705) ? PAGE 1 ? Signed Report ? Procedure Note Jamar Morelos MD - 10/02/2020 EXAM: RADIOLOGY/FOOT RIGHT 3+VIEW EX. D/ (1602) CLINICAL INFORMATION: M77.41.Q66.70. METATARSALGIA OF RIGHT FOOT. PROCEDURE INFORMATION: Exam: XR Right Foot Exam date and time: 10/02/2020 3:49 PM Age: 35 years old Clinical indication: Pain; Foot; Right; Additional info: M77.41. Q66.70. Metatarsalgia of right foot. TECHNIQUE: Imaging protocol: XR Right foot. Views: 3 or more views. COMPARISON: No relevant prior studies available. FINDINGS: Bones/joints: No acute fracture or dislocation is identified. There is a very small posterior calcaneal enthesophyte. There is no osseous erosion or cortical destruction. Soft tissues: The soft tissues appear grossly unremarkable. IMPRESSION: Very small posterior calcaneal enthesophyte. REPORT SIGNED IN OTHER VENDOR SYSTEM 10/02/2020 Reported By: Jamar Morelos MD CC: Transcribed Date/Time: 10/02/2020 (0010) Greens Planter: Printed Date/Time: 10/02/2020 (5754) PAGE 1 Signed Report Venkat Ryan Wakefield DPM IMG DIAGNOSTIC IMAG ING ORDERABLES documented in this encounter Visit Diagnoses Diagnosis Metatarsalgia of right foot- Primary Enthesopathy of ankle and tarsus, unspecified Neuritis of right foot Hallux valgus, right documented in this encounter Historical Medications * This list may reflect changes made after this encounter. Medication Sig Dispensed Refills Start Date End Date losartan (COZAAR) 50 mg tablet Take 1 Tablet by mouth daily. 09/19/2020 omeprazole (PRILOSEC) 20 mg capsule Take 1 Capsule by mouth daily. added in this encounter Care Teams Waiter/Waitress Dining Car Relationship Specialty Start Date End Date Olya Bauman MD [address] [place] [id number] PCP - General 11/05/17 07/06/23 documented as of this encounter
--- OUTSIDE RECORDS SUMMARY | 2023-12-25 15:24 | XMS_ITS | Encounter Summary ---
Author Organization [facility] Address [address] [place] [address] Care Team Providers Care Hematology Nurse Name Role Phone Olya Bauman MD Primary Care Provider [phone] Reason for Visit * Reason Comments Pain New Patient Visit * Referral (Routine) - Closed Specialty Diagnoses / Procedures [facility] Referred To Contact Orthopedic Surgery Diagnoses Pain in right foot Charmaine Bennett PA [address] [place] [address] [facility] [address], [address] [place] [address] Referral ID Status Reason Start Date Expiration Date Visits Re quested Visits Authorized [id number] Closed 1 1 Encounter Details Date Type Department Care Team (Late st Contact Info) Description 09/10/2020 11:[address] [facility] [address], [address] [place], [place] [address] Venkat Wakefield DPM [address], [place] [address] Metatarsalgia of right foot (Primary Dx); Neuritis of right foot; Pes cavus, congenital Social History Tobacco Use Types Packs/Day Years [...] have Coronavirus / COVID-19? No / Unsure 09/10/2020 11:33 EDT documented as of this encounter Last Filed Vital Signs Vital Sign Reading Time Taken Comments Blood Pressure - - Pulse 73 09/10/2020 1134 EDT Temperature 36.2 ??C (97.2 ??F) 09/10/2020 1134 EDT Respiratory Rate - - Oxygen Saturation 100% 09/10/2020 1134 EDT Inhaled Oxygen Concentration - - Weight 104.3 kg (230 lb) 09/10/2020 1134 EDT Height 177.8 cm (5' 10) 09/10/2020 1134 EDT Body Mass Index 33 09/10/2020 1134 EDT documented in this encounter Functional Status [...] as of this encounter Progress Notes * Venkat Wakefield, CLEOM - 09/10/2020 1115 EDT NEW PATIENT SUBJECTIVE Chief Complaint Patient presents with ??? Right Foot - Pain, New Patient Visit This patient was screened using current CDC and [facility] guidelines and algorithm for COVID-19 risk, and was considered low risk based on the best information available today. HPI Shaka Liu is a 35 y.o. male who presents as a new patient in clinic for an evaluation of painin right foot. Also has numbness of the tip of the right big toe. Referred by CLYDE Moulton. Two or 3 months of right foot pain, laterally. Along top and bottom of the 5th metatarsal. No injury. Insidious onset with gradual progression, but never a high amount of pain. Maybe 3/10 pain level. After it lingered, he decided to schedule an appt to have it looked at. Right around that time (which was 3 weeks ago), he also started noticing big toe symptoms. Initially just numbness at the dstaltip of the hallux, but then a week or so later started feeling pain under the base of the toe plantarly.. 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 This first began near tail end of basketball, but then was OK through the lax season. Patient Active Problem List Diagnosis ??? Esophageal reflux History reviewed. No pertinent past medical history. History reviewed. No pertinent surgical history. Social History Tobacco Use ??? Smoking status: Never Smoker ??? Smokeless tobacco: Never Used Substance Use Topics ??? Alcohol use: Not on file History reviewed. No pertinent family history. Current Outpatient Medications Medication Sig Dispense Refill [...] right eye 4 times daily. 5-7 days No current facility-administered medications for this visit. No Known Allergies Current medication list reviewed. REVIEW OF SYSTEMS Constitutional: negative for, fever, fatigue, malaise. Eyes: Negative for, change in vision. Ears,nose,mouth,throat: Negative for, URI symptoms, sinus congestion. Cardiovascular: negative for, chest pain, dyspnea on exertion, palpitations. Respiratory: negative for cough, wheezing. Gastrointestinal: Positive for heartburn. Negative for, abdominal pain, nausea, diarrhea, blood in stool. Genitourinary: negative for, incontinence, dysuria. Musculoskeletal: Positive for, foot pain. Skin/breast: Negative for, rash, discoloration, lesions. Neurological: Positive fort toe numbness. Negative for, weakness. Psychiatric: negative. Hematologic/lymphatic: Negative for, bleeding, bruising. OBJECTIVE Pulse 73 Temp 36.2 ??C (97.2 ??F) Ht 177.8 cm (70) Wt (!) 104.3 kg (230 lb) SpO2 100% BMI 33.00 kg/m?? Body mass index is 33 kg/m??. Physical Exam: General Exam: Alert and oriented. No acute distress. Appropriate affect. Normal cognition. Vascular Exam: Dorsalis pedis pulses normal. Posterior tibial pulses normal. Skin color, texture, turgor, and elasticity normal. No edema. Capillary refill under 2 seconds. Tepid skin temperature. Digital hair present. Dermatologic Exam: No dermal breakdown or ulcerations. No significant hyperkeratotic lesions. Toenails normal. Web spaces are without pathology. Skin hydration and texture normal. Ortho Exam: POP slight lateral midshaft 5th met R. Mild pain with metatarsal squeeze Pain right foot with Passive and active PF. Pain with resisted PF and eversion. Could not reproduce any pain in the hallux or 1st metatarsal. Under pronated, moderate pes cavus foot type. High lateral weightbearing while at same time having a mild to moderately plantarflexed first ray. Gait analysis: Normal swing phase. No obvious limb length discrepancy. Heel contact is normal. Through mid stance he is under pronated bilateral. Angle of and base of gait are normal. Does not reallyresupinate, but supinates more into propulsion. Neurologic Exam: On monofilament sensation, he was +10g Consistently except distal medial tip of right hallux, which was slighlty blunted. Easily felt 50g, and likely would detect 20g if we had a filament at that level. No muscuilar weakness. ASSESSMENT AND PLAN 1. Metatarsalgia of right foot 2. Neuritis of right foot- Suspect that this is just from pressure on the medial proper digital nerve of the hallux. 3. Pes cavus, congenital- Moderate degree. No neurologic cause is evident, suspect this is congenital Explained exam findings. Discussed his structure and biomechanics. We should first address this with our treatment as it is likely the underlying cause of his symptoms. Suggested one of the very few OTC orthotics that is made for a cavus foot type, Vasyli Pickett model. During the first week he should do a gradual break-in starting with 1 hour the first day and add 1 hour each day. Reevaluate in a few weeks. Repeat gait analysis with orthotics. Orthotic adjustment as necessary. Consider further diagnostic testing if symptoms have progressed or at least not improved. Venkat Wakefield DPM [facility] [place], [place] documented in this encounter Plan of Treatment Not on file documented as of this encounter Visit Diagnoses Diagnosis Metatarsalgia of right foot- Primary Enthesopathy of ankle and tarsus, unspecified Neuritis of right foot Pes cavus, congenital Talipes cavus documented in this encounter Care Teams Hematology Nurse Relationship Specialty Start Date End Date Olya Bauman MD [address] [place] [id number] PCP - General 11/05/17 07/06/23 documented as of this encounter
--- OUTSIDE RECORDS SUMMARY | 2023-12-25 15:24 | XMS_ITS | Encounter Summary ---
Author Organization [facility] Address [address] [place] [address] Care Team Providers Care Nutrition Consultant Name Role Phone Olya Bauman MD Primary Care Provider [phone] Encounter Details Date Type Department Care Team (Late st Contact Info) Description 03/14/2020 Results Only [facility] - Main [address] [id number] Olay Bauman MD [address] [place] [phone] Social History Tobacco Use Types Packs/Day [...] Procedure Name Priority Date/Time Associated Diagnosis Comments COVID-19 TESTING Routine 03/14/2020 10:3 0 EST documented in this encounter Results * COVID-19 TESTING (03/14/2020 10:30 EST) Performing Lab [facility] 03/15/2020 19:28 EST [facility] Comment: Please indicate the Triage Tier2 Test performed [place] [address] COVID-19 rt-PCR Result Not Detected Negative 03/15/2020 19:28 EST [facility] Comment: 2019-novel Coronavirus (2019-nCoV) not detected by the qRT-PCR assay. Consider testing for other respiratory viruses or re-collecting for 2019-nCoV testing. Note: Optimum timing for peak viral levels during infections caused by 2019-nCoV have not been determined. Collection of multiple specimens from the same patient may be necessary to detect the virus. Limitations Positive results are indicative of active infection with SARS-CoV-2 but do not rule out bacterial infection or co-infection with other viruses. The agent detected may not be the definite cause of disease. In addition, detection of viral RNA may not indicate the presence of infectious virus or that SARS-CoV-2 is the causative agent for clinical symptoms. Negative results do not preclude SARS-CoV-2 infection and should not be used as the sole basis for patient management decisions. Negative results must be combined with clinical observations, patient history, and epidemiological information. False negative results may also occur if amplification inhibitors are present in the specimen or if inadequate numbers of organisms are present in the specimen. Optimum specimen types and timing for peak viral levels during infections caused by SARS-CoV-2 have not been fully determined. Collection of multiple specimens (types and time points) from the same patient may be necessary to detect the virus. The test was validated for use with upper respiratory specimens obtained via nasopharyngeal or oropharyngeal swabs in VTM, UTM, M4, M5, M6, saline, and MTM media. The performance of this test has not been established for other specimens. Specimens collected using other FDA recommended Specimen Collection Materials listed in the FDA COVID-19 [employer] communication (May 19, 2019) are processed with the caveat that they were not all validated for use with this test and the result must be interpreted in this context. Furthermore, a false negative results may occur if a specimen is improperly collected, transported or handled. If the virus mutates in the RT-PCR target region, SARS-CoV-2 may not be detected or may be detected less predictably. Inhibitors or other types of interference may produce a false negative result. An interference study evaluating the effect of common cold medications was not performed. This test is not FDA-cleared but its performance characteristics were established by our CLIA-certified, CAP-accredited, high complexity laboratory in accordance with CLIA regulations, [employer] (CAP) guidelines (May 12, 2019), and FDA guidance (Apr 23, 2019). This test is only for use under the Food and Drug Administration's Emergency Use Authorization. 03/14/2020 10:3 0 EST 03/14/2020 11:35 EST Olya Bauman MD MICROBIOLOGY - GENER AL ORDERABLES [facility] [address] [place] [address] documented in this encounter Visit Diagnoses Not on filedocumented in this encounter Care Teams Nutrition Consultant Relationship Specialty Start Date End Date Olya Bauman MD [address] [place] [address] PCP - General 11/05/17 07/06/23 documented as of this encounter
--- OUTSIDE RECORDS SUMMARY | 2023-12-25 15:24 | XMS_ITS | Encounter Summary ---
Author Organization [facility] Address [address] [place] [address] Care Team Providers Care Music Historian Name Role Phone Olya Bauman MD Primary Care Provider [phone] Reason for Visit * Reason Comments Follow-up Pain Encounter Details Date Type Department Care Team (Late st Contact Info) Description 01/28/2021 8:15 EST Office Visit [facility] Orthopedics & Podiatry [address], [address] [place], [place] [address] Venkat Wakefield, [facility] [address] [place] [address] Metatarsalgia of right foot (Primary [...] have Coronavirus / COVID-19? No / Unsure 01/28/2021 8:15 EST documented as of this encounter Last Filed Vital Signs Vital Sign Reading Time Taken Comments Blood Pressure - - Pulse 63 01/28/2021 0816 EST Temperature - - Respiratory Rate - - Oxygen Saturation 99% 01/28/2021 0816 EST Inhaled Oxygen Concentration - - Weight [...] as of this encounter Progress Notes * Wyatt MadayJERSON topete - 01/28/2021 0815 EST SUBJECTIVE: Chief Complaint Patient presents with ??? Right Foot - Follow-up ?? HPI Shaka Liu?is a 35 y.o.?male??presenting in clinic today for a follow up of metatarsalgia of Right foot. Last seen on 12/05/20. Patient reports gradual improvement. He had decent improvement almost right away with orthotic insoles and then it has gradually improved further since then. Got custom orthotics from PT. Uses the Fanbouts med XPE orthotic as a backup in another pair shoes but primarily using the custom orthotics. Uses hallux valgus night splint every night. Not super comfortable after a few hours so he often puts the bunion aperture pad underneath this. Uses 1 of those aperture pads during the day but they never last more than a day because it tears the portion that goes around the toe. Still has some slight numbness. No pain at all anymore though. ?? The past medical, family and social history have been reviewed in the patient chart. ??Medications and allergies reviewed. ? OBJECTIVE: Temp O2 Sat 99 Pulse 63 ?? General Exam: Alert and oriented. No acute distress. Appropriate affect. Normal cognition. Dermatologic Exam: No contributory lesions. ?? Orthopedic Exam: No pain on palpation. No pain with passive, active, or resisted motion. No pain onmetatarsal squeeze test. Hallux valgus is present. Moderate bunion prominence. No acute inflammation of the bunion. Range of motion at first MTP joint is full, clean, and not track bound. ?? Neurologic Exam: No weakness or motor deficit. With 10 g monofilament, patient had normal sensationthroughout the foot including the previous area of some numbness in the medial great toe right foot. Although subjectively he still feels like there might be a little intermittent partial numbness there, on monofilament testing it is normal and equal to the other areas in the foot. On percussion ofthe right tarsal tunnel there is a little bit of tingling that goes to about mid arch on the right.Left is negative. Patient has quite a few moderate superficial varicosities. Do not palpate any deep varicose vein but that certainly up is potential that he might have one within the tarsal tunnel that could be partially if not fully responsible for the numbness and sensation but since it is now intermittent, mild, and objectively there is no numbness, we can safely just have patient continue what he is doing and follow-up with the numbness increases again. ?? ASSESSMENT AND PLAN: 1. Metatarsalgia of right foot 2. Neuritis of right foot 3. Hallux valgus, right Patient is doing well. He will continue with hallux valgus splint at night. For bunion aperture pads he will try one of the Pedifix type either the aperture style or the gel style that also has a spacer between first and second toes. Information printed from Internet page. Continue with orthotics. We will follow on an as-needed basis if symptoms return. Patient Active Problem List Diagnosis ??? Esophageal reflux ?? No past medical history on file. No past surgical history on file. ?? Social History ?? Tobacco Use ??? Smoking status: Never Smoker ??? Smokeless tobacco: Never Used Substance Use Topics ??? Alcohol use: Not on file ?? No family history on file. ?? Current Medications Current Outpatient Medications Medication Sig Dispense Refill ??? albuterol 90 mcg/actuation inhaler Inhale 180 mcg as directed every 4 hours as needed for Wheezing. ? cholecalciferol (VITAMIN D3) 50,000 unit capsule Take 50,000 Units by mouth once a week. ? dexlansoprazole (DEXILANT) 60 mg capsule Take 60 mg by mouth daily. ? erythromycin (ROMYCIN) 5 mg/gram (0.5 %) ophthalmic ointment Place 1 cm into the right eye 4 times daily. 5-7 days ? losartan (COZAAR) 50 mg tablet Take 50 mg by mouth daily. ? omeprazole (PRILOSEC) 20 mg capsule Take 20 mg by mouth daily. ? No current facility-administered medications for this visit. ? No Known Allergies ? Venkat Wakefield DPM [facility] [place], [place] documented in this encounter Plan of Treatment Not on file documented as of this encounter Visit Diagnoses Diagnosis Metatarsalgia of right foot- Primary Enthesopathy of ankle and tarsus, unspecified Neuritis of right foot Hallux valgus, right documented in this encounter Care Teams Music Historian Relationship Specialty Start Date End Date Olya Bauman MD [address] [place] [address] PCP - General 11/05/17 07/06/23 documented as of this encounter
--- OUTSIDE RECORDS SUMMARY | 2023-12-25 15:24 | XMS_ITS | Encounter Summary ---
Author Organization [facility] Address [address] [place] [address] Care Team Providers Care Pearl Glue Drier Name Role Phone Olya Bauman MD Primary Care Provider [phone] Encounter Details Date Type Department Care Team (Late st Contact Info) Description 02/06/2021 Results Only [facility] - [facility] [address] [place] [address] Charmaine Bennett PA [address] [place], [place] [id number] Social History Tobacco Use Types Packs/Day Years [...] 8:15 EST documented as of this encounter Functional Status [...] Diagnosis Comments COMPREHENSIVE METABOLIC PANEL (CMP) Routine 02/06/2021 8:15 EST documented in this encounter Results * (ABNORMAL) COMPREHENSIVE METABOLIC PANEL (CMP) (02/06/2021 8:15 EST) Glucose 90.00 70.00 - 100.00 mg/dL [facility] Bun 21.00(H) 7.00 - 20.00 mg/dL [facility] Creatinine 1.20 0.70 - 1.50 mg/dL [facility] Estimated GFR >60 [facility] Comment: Chronic renal impairment is defined as GFR <60 Multiply result by 1.210 for patients eGFR calculated using the IDMS-traceable MDRD study Sodium 136.00(L) 137.00 - 145.00 mmol/L [facility] Potassium 3.90 3.50 - 5.10 mmol/L [facility] Chloride 102.00 98.00 - 107.00 mmol/L [facility] Carbon Dioxide 28.00 22.00 - 30.00 mmol/L [facility] Calcium 8.70 8.50 - 10.50 mg/dL [facility] Anion Gap 6(L) 7 - 17 mmol/L [facility] Total Protein 7.50 6.30 - 8.20 g/dL [facility] Albumin 4.40 3.50 - 5.00 g/dL [facility] Total Bilirubin 1.40(H) 0.20 - 1.30 mg/dL [facility] AST/SGOT 39.00 15.00 - 46.00 U/L [facility] ALT/SGPT 42.00 0.00 - 50.00 U/L [facility] ALK 68.00 38.00 - 126.00 U/L [facility] 02/06/2021 8:15 EST Charmaine TANG CHEMISTRY & BLOOD GA S ORDERABLES [facility] [address] [place], [place] [phone] documented in this encounter Visit Diagnoses Not on filedocumented in this encounter Care Teams Pearl Glue Drier Relationship Specialty Start Date End Date Olya Bauman MD [address] [place] [address] PCP - General 11/05/17 07/06/23 documented as of this encounter
--- OUTSIDE RECORDS SUMMARY | 2023-12-25 15:24 | XMS_ITS | Encounter Summary ---
Author Organization [facility] Address [address] [place] [address] Care Team Providers Care Electron Beam Photo Mask Technician Name Role Phone Olya Bauman MD Primary Care Provider [phone] Juana Olmedo NP Primary Care Provider [phone] Encounter Details Date Type Department Care Team (Late st Contact Info) Description 03/14/2020 Lab Requisition [facility] - [facility] [address], [place] [phone] Outr Resulting Lab, Provider Social History Tobacco Use Types Packs/Day Years [...] Procedure Name Priority Date/Time Associated Diagnosis Comments DO NOT ORDER STANDALONE - BROAD COVID TEST Today 03/14/2020 10:30 EST COVID-19 TESTING Routine 03/14/2020 10:3 0 EST documented in this encounter Results * DO NOT ORDER STANDALONE - BROAD COVID TEST (03/14/2020 10:30 EST) COVID-19 rt-PCR Result NEGATIVE Negative 03/15/2020 17:45 EST [facility] Comment: 2019-novel Coronavirus (2019-nCoV) not detected by [...] in accordance with CLIA regulations, [employer] of [place] [employer] (CAP) guidelines (May 12, 2019), and FDA guidance (Apr 23, 2019). This test is only for use under the Food and Drug Administration's Emergency Use Authorization. Swab ENTIRE NASOPHARYNX / Unknown 03/14/2020 10:30 EST 03/14/2020 15:36 EST Provider Outr Resulting Lab MICROBIOLOGY - GENERAL ORDERABLES [facility] [place], [place] * COVID-19 TESTING (03/14/2020 10:30 EST) COVID-19 rt-PCR Result NEGATIVE Negative 03/15/2020 18:19 EST [facility] Comment: 2019-novel Coronavirus (2019-nCoV) not detected by [...] in accordance with CLIA regulations, [employer] of [employer] (CAP) guidelines (May 12, 2019), and FDA guidance (Apr 23, 2019). This test is only for use under the Food and Drug Administration's Emergency Use Authorization. Performing Lab [facility] [place] 03/15/2020 18:19 EST [facility] Swab 03/14/2020 10:3 0 EST 03/14/2020 15:36 EST Provider Outr Resulting Lab MICROBIOLOGY - GENERAL ORDERABLES [facility] [address] [place] [address] [facility] [place], [place] documented in this encounter Visit Diagnoses Not on filedocumented in this encounter Additional Health Concerns Infection Onset Date Last Indicated Resolved Time R/O COVID-19 07/07/2023 07/07/2023 07/07/2023 22:0 5 EDT Rule-Out C. difficile 07/07/2023 07/07/20232023 22:16 EDT documented as of this encounter Care Teams Electron Beam Photo Mask Technician Relationship Specialty Start Date End Date Olya Bauman MD [address] [address] PCP - General 11/05/17 07/06/23 Juana Olmedo NP [address] [place] [phone] PCP - General 07/07/23 documented as of this encounter
--- OUTSIDE RECORDS SUMMARY | 2023-12-25 15:24 | XMS_ITS | Encounter Summary ---
Author Organization [facility] Address [address] [place] [address] Care Team Providers Care Operations Executive Name Role Phone Olya Bauman MD Primary Care Provider [phone] Encounter Details Date Type Department Care Team (Late st Contact Info) Description 02/06/2021 Results Only [facility] Services - [facility] [address] [place] [address] Charmaine Bennett PA [address] [place], [place] [id number] Social History Tobacco Use Types Packs/Day Years [...] PROFILE (INCLUDES CHOLESTEROL, TRIGLYCERIDES, HDL, LDL) Routine 02/06/2021 8:15 EST documented in this encounter Results * (ABNORMAL) LIPID PROFILE (INCLUDES CHOLESTEROL, TRIGLYCERIDES, HDL, LDL) (02/06/2021 8:15 EST) Cholesterol 178.00 0.00 - 200.00 mg/dL [facility] dHDL 32.00(L) 40.00 - 60.00 mg/dL [facility] Triglycerides 134.00 0.00 - 150.00 mg/dL [facility] 02/06/2021 8:15 EST Charmaine TANG CHEMISTRY & BLOOD GA S ORDERABLES Performing Organization Address City/State/[facility] Co de Phone Number [facility] [address] [place] [address] documented in this encounter Visit Diagnoses Not on filedocumented in this encounter Care Teams Operations Executive Relationship Specialty Start Date End Date Olya Bauman MD [address] [place], [place] [id number] PCP - General 11/05/17 07/06/23 documented as of this encounter
--- OUTSIDE RECORDS SUMMARY | 2023-12-25 15:24 | XMS_ITS | Encounter Summary ---
Author Organization [facility] Address [address] [place] [address] Care Team Providers Care Demographic Analyst Name Role Phone Olya Bauman MD Primary Care Provider [phone] Encounter Details Date Type Department Care Team (Late st Contact Info) Description 12/21/2018 Results Only [facility] Lab - Main [place] [address] [place], [place] [id number] Charmaine Bennett PA [address] [place] [address] Social History Tobacco Use Types Packs/Day Years Used Date Smoking Tobacco: Never Smokeless Tobacco: Never Sex and Gender Information Value [...] Name Priority Date/Time Associated Diagnosis Comments LIPID PANEL POC - [facility] Routine 12/21/2018 12:05 EDT documented in this encounter Results * (ABNORMAL) LIPID PANEL POC - [facility] (12/21/2018 12:05 EDT) Triglyceride 264(H) 0.00 - 150.00 MG/DL 12/21/2018 12:07 EDT [facility] Cholesterol 170 0.00 - 200.00 MG/DL 12/21/2018 12:07 EDT [facility] HDL 30(L) 40.00 - 60.00 MG/DL 12/21/2018 12:07 EDT [facility] 12/21/2018 12:0 5 EDT 12/21/2018 12:05 EDT Narrative [facility] - 12/21/2018 12:07 EDT MULTIPLY RESULT BY 1.210 FOR PATIENTS EGFR CALCULATED USING THE IDMS-TRACEABLE MDRD STUDY Charmaine TANG CHEMISTRY & BLOOD GA S ORDERABLES [facility] documented in this encounter Visit Diagnoses Not on filedocumented in this encounter Care Teams Demographic Analyst Relationship Specialty Start Date End Date Olya Bauman MD [address] [place] [address] PCP - General 11/05/17 07/06/23 documented as of this encounter
--- OUTSIDE RECORDS SUMMARY | 2023-12-25 15:24 | XMS_ITS | Encounter Summary ---
Author Organization [facility] Address [address] [place] [address] Care Team Providers Care Needle Setter Name Role Phone Olya Bauman MD Primary Care Provider [phone] Encounter Details Date Type Department Care Team (Late st Contact Info) Description 03/18/[address] [facility] Lab - Main [address] [phone] Olya Bauman MD [address] [place] [phone] Social History Tobacco Use Types Packs/Day Years Used Date Smoking Tobacco: Never Assessed Interpersonal Safety Answer Date Record ed Physically [...] Priority Date/Time Associated Diagnosis Comments COMPREHENSIVE METABOLIC POC - [facility] Routine 03/18/2016 13:58 EST CBC W/PLT & DIFF,POINT OF CARE - [facility] Routine 03/18/2016 13:58 EST POCT URINALYSIS Routine 03/18/2016 13:58 EST documented in this encounter Results * (ABNORMAL) POCT URINALYSIS (03/18/2016 13:58 EST) URINE APPEARANCE - [facility] Sl Cloudy CLEAR 03/18/2016 13:59 [facility] URINE BILIRUBIN - DIPSTICK - [facility] Negative NEGATIVE 03/18/2016 13:59 [facility] URINE BLOOD - [facility] Negative NEGATIVE 03/18/2016 13:59 [facility] URINE COLOR - [facility] Mower YELLOW 03/18/2016 13:59 [facility] URINE GLUCOSE - DIPSTICK - [facility] Negative NEGATIVE MG/DL 03/18/2016 13:59 [facility] URINE KETONE - [facility] Trace NEGATIVE MG/DL 03/18/2016 13:59 [facility] URINE LEUK ESTERASE - [facility] Negative NEGATIVE 03/18/2016 13:59 [facility] URINE NITRITE - [place] - [facility] Negative NEGATIVE 03/18/2016 13:59 [facility] URINE PH - [facility] 6.0 () 7 13:59 [facility] URINE PROTEIN - DIPSTICK - [facility] Negative NEGATIVE 03/18/2016 13:59 [facility] URINE SPECIFIC GRAVITY - [facility] >=1.030(H) () 03/18/2016 13:59 [facility] URINE UROBILINOGEN - [place] - [facility] 0.2 0.2 - 1.0 EU/DL 03/18/2016 13:59 [facility] 03/18/2016 13:5 8 EST 03/18/2016 13:58 EST Olya Bauman MD POINT OF CARE TEST O RDERABLES [facility] * COMPREHENSIVE METABOLIC POC - [facility] (03/18/2016 13:58 EST) Albumin % 4.2 3.50 - 5.00 G/DL 03/18/2016 13:59 [facility] ALKALINE PHOSPHATASE - [facility] 79 38.00 - 126.00 U/L 03/18/2016 13:59 [facility] BILIRUBIN TOTAL 1.2 0.20 - 1.30 MG/DL 03/18/2016 13:59 [facility] BUN - [facility] 15 7.00 - 20.00 MG/DL 03/18/2016 13:59 [facility] CALCIUM - [facility] 9.2 8.50 - 10.50 MG/DL 03/18/2016 13:59 [facility] Chloride 103 98.00 - 107.00 MMOL/L 03/18/2016 13:59 [facility] CO2 Total 27 22.00 - 30.00 MMOL/L 03/18/2016 13:59 [facility] CREATININE 1.1 0.70 - 1.50 MG/DL 03/18/2016 13:59 [facility] Anion Gap 13 7 - 17 03/18/2016 13:59 [facility] GLUCOSE - [facility] 71 70.00 - 100.00 MG/DL 03/18/2016 13:59 [facility] Potassium 4.7 3.50 - 5.10 MMOL/L 03/18/2016 13:59 [facility] Sodium 143 137.00 - 145.00 MMOL/L 03/18/2016 13:59 [facility] TOTAL PROTEIN - [facility] 7.5 6.30 - 8.20 G/DL 03/18/2016 13:59 [facility] SGOT/AST - [facility] 31 15.00 - 46.00 U/L 03/18/2016 13:59 [facility] SGPT/ALT - [facility] 43 13.00 - 69.00 U/L 03/18/2016 13:59 [facility] 03/18/2016 13:5 8 EST 03/18/2016 13:58 EST Olya Bauman MD CHEMISTRY & BLOOD GA S ORDERABLES [facility] * (ABNORMAL) CBC W/PLT & DIFF,POINT OF CARE - [facility] (03/18/2016 13:58 EST) Gran # 4.5 1.4 - 6.5 X10E3/UL 03/18/2016 13:59 [facility] GRAN % - [facility] 63.3 42.2 - 75.2 % 03/18/2016 13:59 [facility] HEMATOCRIT - [facility] 49.5 35.0 - 60.0 % 03/18/2016 13:59 [facility] HEMOGLOBIN - [facility] 16.0 11.0 - 18.0 G/DL 03/18/2016 13:59 [facility] LYMPH # - [facility] 2.3 1.2 - 3.4 X10E3/UL 03/18/2016 13:59 [facility] LYMPH% - [facility] 31.8 20.5 - 51.1 % 03/18/2016 13:59 [facility] MEAN CORPUSCULAR HGB - [facility] 28.1 27.0 - 31.0 PG 03/18/2016 13:59 [facility] MEAN CORPUSCULAR HGB CONC - [facility] 32.3(L) 33.0 - 37.0 G/DL 03/18/2016 13:59 [facility] MEAN CELL VOLUME - [facility] 87.0 80.0 - 99.9 FL 03/18/2016 13:59 [facility] MONO # - [facility] 0.3 0.1 - 0.6 X10E3/UL 03/18/2016 13:59 [facility] MONO% - [facility] 4.9 1.7 - 9.3 % 03/18/2016 13:59 [facility] MEAN PLATELET VOLUME - [facility] 9.2 7.8 - 11.0 FL 03/18/2016 13:59 [facility] PLATELET COUNT 148(L) 150 - 450 X10E3/UL 03/18/2016 13:59 [facility] RED BLOOD COUNT - [facility] 5.69 4.00 - 6.00 X10E6/UL 03/18/2016 13:59 [facility] RED CELL DISTRI WIDTH - [facility] 13.1 11.6 - 13.7 % 03/18/2016 13:59 [facility] WHITE BLOOD COUNT - [facility] 7.1 4.5 - 10.5 X10E3/UL 03/18/2016 13:59 EST [facility] 03/18/2016 13:5 8 EST 03/18/2016 13:58 EST Olya Bauman MD CHEMISTRY & BLOOD GA S ORDERABLES [facility] documented in this encounter Visit Diagnoses Not on filedocumented in this encounter Care Teams Needle Setter Relationship Specialty Start Date End Date Olya Bauman MD [address] [place] [address] PCP - General 11/05/17 07/06/23 documented as of this encounter
--- OUTSIDE RECORDS SUMMARY | 2023-12-25 15:24 | XMS_ITS | Encounter Summary ---
Author Organization [facility] Address [address] [place] [address] Care Team Providers Care Structural Biologist Name Role Phone Olya Bauman MD Primary Care Provider [phone] Reason for Visit * Reason Comments COVID-19 Encounter Details Date Type Department Care Team (Late st Contact Info) Description 11/24/2019 10:30 EDT Office Visit [facility] - Mobile Testing Department [address] [place] [address] Nurse, [facility] Mobile Testing Screening for viral disease (Primary Dx) Social History Tobacco Use Types [...] as of this encounter Progress Notes * Juliana Aparicio - 11/24/2019 1030 EDT Covid specimen collected by: Shantell Mendez RN Patient tolerated well. Covid instructional hand-out given. documented in this encounter Plan of Treatment Not on file documented as of this encounter Visit Diagnoses Diagnosis Screening for viral disease- Primary Special screening examination for unspecified viral disease documented in this encounter Care Teams Structural Biologist Relationship Specialty Start Date End Date Olya Bauman MD [address] [place] [place] [id number] PCP - General 11/05/17 07/06/23 documented as of this encounter
--- OUTSIDE RECORDS SUMMARY | 2023-12-25 15:24 | XMS_ITS | Encounter Summary ---
Author Organization [facility] Address [address] [place] [address] Care Team Providers Care Air Hose Coupler Name Role Phone Olya Bauman MD Primary Care Provider Juana Olmedo NP Primary Care Provider [phone] Encounter Details Date Type Department Care Team (Late st Contact Info) Description 11/24/2019 Lab Requisition [facility] Pathology & Laboratory Medicine - [facility] [address] [place], [place] [phone] Outr Resulting Lab, Provider Social History Tobacco [...] ORDER STANDALONE - BROAD COVID TEST Today 11/24/2019 10:21 EDT COVID-19 TESTING Routine 11/24/2019 10:2 1 EDT documented in this encounter Results * DO NOT ORDER STANDALONE - BROAD COVID TEST (11/24/2019 10:21 EDT) COVID-19 rt-PCR Result NEGATIVE Negative 11/25/2019 21:36 EDT [facility] Comment: 2019-novel Coronavirus (2019-nCoV) [...] in accordance with CLIA regulations, [employer] (CAP) guidelines (May 12, 2019), and FDA guidance (Apr 23, 2019). This test is only for use under the Food and Drug Administration's Emergency Use Authorization. Swab ENTIRE NASOPHARYNX / Unknown 11/24/2019 10:21 EDT 11/24/2019 22:22 EDT Provider Outr Resulting Lab MICROBIOLOGY - GENERAL ORDERABLES [facility] [place] * COVID-19 TESTING (11/24/2019 10:21 EDT) COVID-19 rt-PCR Result NEGATIVE Negative 11/25/2019 23:24 EDT [facility] Comment: 2019-novel Coronavirus (2019-nCoV) [...] in accordance with CLIA regulations, [employer] (CAP) guidelines (May 12, 2019), and FDA guidance (Apr 23, 2019). This test is only for use under the Food and Drug Administration's Emergency Use Authorization. Performing Lab [facility] 11/25/2019 23:24 EDT [facility] Swab 11/24/2019 10:2 1 EDT 11/24/2019 22:22 EDT Provider Outr Resulting Lab MICROBIOLOGY - GENERAL ORDERABLES [facility] [address] [place] [address] [facility] [place] documented in this encounter Visit Diagnoses Not on filedocumented in this encounter Additional Health Concerns Infection Onset Date Last Indicated Resolved Time R/O COVID-19 07/07/2023 07/07/2023 07/07/2023 22:0 5 EDT Rule-Out C. difficile 07/07/2023 07/07/20232023 22:16 EDT documented as of this encounter Care Teams Air Hose Coupler Relationship Specialty Start Date End Date Olya Bauman MD [address] [address] PCP - General 11/05/17 07/06/23 Juana Olmedo NP [address] [place] [phone] PCP - General 07/07/23 documented as of this encounter
--- OUTSIDE RECORDS SUMMARY | 2023-12-25 15:24 | XMS_ITS | Encounter Summary ---
Author Organization [facility] Address [address] [place] [address] Care Team Providers Care Shoe Parts Caser Name Role Phone Olya Bauman MD Primary Care Provider [phone] Reason for Visit * Reason Comments Eye Problem Right eye irritation x 2 days Encounter Details Date Type Department Care Team (Late st Contact Info) Description 11/06/2017 8:30 EDT Office Visit [facility] [address] [place] [address] Alma Rosa Brooks MD [address] [place] [phone] Social History Tobacco Use Types Packs/Day Years [...] as of this encounter Progress Notes * Alma Rosa Brooks MD - 11/06/2017 0830 EDT Chief Complaint Patient presents with ??? Eye Problem Right eye irritation x 2 days HPI The patient is a 32 y.o. male c/o irritation, right eye, for two days. Had fbs, tried flushing it, made it a bit better but then was worse again yesterday. PCP rx'd e-mycin jaky which he used twice yesterday, today better. Does not remember getting anything in the eye. Sees Dr. Jeffers. Right Eye: Redness Left Eye: NL Visual Aid: Current Rx Age Location: Pain: 0 - No pain Quality: Severity: Duration: Timing: Lasts: Context: Two days ago started to have irritation in his right eye, felt like something was in it sohe flushed it a couple times. [place] a little bit better- woke up yesterday and it was still irritated, hard to keep his eye open. Went to PCP who couldn't see any FB - rxed emycin ointment. He used the ointment twice yesterday, today eye feels better although still slightly red. Modifying factors: Has been seen by Dr. Jeffers since he was a kid for eye tracking and eye therapy. Associated Signs & Symptoms: Attestation: ROS Constitutional: NL ENT/Mouth Cardiovascular: Respiratory: Gastrointestinal: Genitourinary: Musculoskeletal: Integumentary: Neurologic: Psychiatric: Endocrine: Hematologic: Immunologic: Sports Management Intern: Exposures: None Other: Attestation: Base Eye Exam Visual Acuity (Snellen - Linear) Right Left Dist sc 20/20 20/20 Tonometry (Applanation, 8:32) Right Left Pressure 16 15 Pupils Pupils Dark APD Right PERRL 4 None Left PERRL 4 None Neuro/Psych Oriented x3: Yes Mood/Affect: Normal Slit Lamp and Fundus Exam External Exam Right Left External Normal Normal Slit Lamp Exam Right Left Lids/Lashes FB upper lid Normal Conjunctiva/Sclera Very trace injection White and quiet Cornea Clear, no FB, PEE inferonasally Clear Anterior Chamber Deep and quiet Deep and quiet Iris Round and reactive Round and reactive Lens Clear Clear DIAGNOSTIC TESTS: IMPRESSION & PLAN: ??? Foreign body of right conjunctival sac, initial encounter - removed at slit- lamp with cotton tip applicator - continue with Erythromycin ointment twice a day x 1-2 days - return PRN I have reviewed the patient's past medical, family, social and surgical history. I have also reviewed the patient's medications, allergies, and problem list. I performed my own HPI and have reviewed the tech's ROS as well. I completed this exam personally. Alma Rosa Brooks MD I am scribing for Alma Rosa Brooks MD, while she is personally performing the service. KWADWO Rosas Patient Education Topic: foreign body Method: Verbal Taught to: Patient Barriers: None Outcomes: independent and verbalized understanding Signature: Alma Rosa Brooks MD documented in this encounter Plan of Treatment Not on file documented as of this encounter Visit Diagnoses Diagnosis Foreign body of right conjunctival sac, initial encounter- Primary documented in this encounter Historical Medications * This list may reflect changes made after this encounter. Medication Sig Dispensed Refills Start Date End Date cholecalciferol (VITAMIN D3) 50,000 unit capsule Take 1 Capsule by mouth once a week. albuterol 90 mcg/actuation inhaler Inhale 2 Puffs as directed every 4 hours as needed for Wheezing. erythromycin (ROMYCIN) 5 mg/gram (0.5 %) ophthalmic ointment Place 1 cm into the right eye 4 times daily. 5-7 days 08/13/2021 dexlansoprazole (DEXILANT) 60 mg capsule Take 60 mg by mouth daily. 08/13/2021 added in this encounter Eye Exam Visual Acuity (Snellen - Linear) Right eye Left eye Dist sc 20/20 20/20 Tonometry (Applanation, 8:32) Right eye Left eye Pressure 16 15 Pupils Pupils Dark APD Right eye PERRL 4 None Left eye PERRL 4 None Neuro/Psych Oriented x3: Yes Mood/Affect: Normal External Exam Right eye Left eye External Normal Normal Slit Lamp Exam Right eye Left eye Lids/Lashes FB upper lid Normal Conjunctiva/Sclera Very trace injection White an d quiet Cornea Clear, no FB, PEE inferonasally Clear Anterior Chamber Deep and quiet Deep and quiet Iris Round and reactive Round and syed ctive Lens Clear Clear Care Teams Shoe Parts Caser Relationship Specialty Start Date End Date Olya Bauman MD [address] [place] [address] PCP - General 11/05/17 07/06/23 documented as of this encounter
--- OUTSIDE RECORDS SUMMARY | 2023-12-25 15:24 | XMS_ITS | Encounter Summary ---
Author Organization [facility] Address [address] [place] [address] Care Team Providers Care Clerical Secretary Name Role Phone Olya Bauman MD Primary Care Provider [phone] Reason for Visit * Reason Onset Date Comments Eye Problem 11/05/2017 Encounter Details Date Type Department Care Team (Late st Contact Info) Description 11/05/2017 Telephone [facility] - [place] [address] [place] [address] [place]ua Wells, COA [address] [place] [address] Eye Problem Social History Tobacco Use Types Packs/Day Years Used Date Smoking Tobacco: Never Assessed Sex and Gender Information Value Date Recorded Sex Assigned at Not on file Gender Identity Male 09/10/2020 8:42 EDT Sexual Orientation Not on file documented as of this encounter Miscellaneous Notes * Telephone Encounter - Akosua Wells - 11/05/2017 1504 EDT [facility] called: had a patient being seen for right eye irritation. Provider, Humaira Bennett PA-C reported pt first noticed last night feeling of something in the right eye, fluctuating at times feels a little better, with tearing & light sensitivity. Today at visit she used staining but could not see any foreign body or abrasion, flushed his eye several times. Dr. Us said ok to use Erythromycin ointment 3-4x daily, schedule appointment here tomorrow. Scheduled w/Dr. Brooks, Thursday @ 8:30. documented in this encounter Plan of Treatment Not on file documented as of this encounter Visit Diagnoses Not on filedocumented in this encounter Care Teams Clerical Secretary Relationship Specialty Start Date End Date Olya Bauman MD [address] [place] [address] PCP - General 11/05/17 07/06/23 documented as of this encounter
--- OUTSIDE RECORDS SUMMARY | 2023-12-25 15:24 | XMS_ITS | Encounter Summary ---
Author Organization [facility] Address [address] [place] [address] Care Team Providers Care Director Agency & Strategic Partnerships Name Role Phone Olya Bauman MD Primary Care Provider Reason for Referral * Referral (Routine/Next Available) - Receiving Office to Obtain Authorization Specialty Diagnoses / Procedures Referred By Edwar segovia Referred To Contact Diagnoses Araiza's esophagus without dysplasia Procedures UPPER ENDOSCOPY (EGD) Charmaine Bennett PA [address] [place] [address] Referral ID Status Reason Start Date Expiration Date Visits Requested Visits Authorized [id number] Receiving Office to Obtain Authorization 1 1 1 Reason for Visit * Auth/Cert Specialty Diagnoses / Procedures Referred By Edwar segovia Referred To Contact Referral ID Status Reason Start Date Expiration Date Visits Re quested Visits Authorized [id number] 1 1 Encounter Details Date Type Department Care Team (Latest Contact Info) Description 08/13/2021 8:06 EDT - 08/13/2021 23:59 EDT Hospital Encounter [facility] [place] Endoscopy [address], [place] [address] Kg Joyce MD [address] [place] [address] [address] [place] [address] Araiza's esophagus without dysplasia Discharge Disposition: Home or Self Care Social [...] Sign Reading Time Taken Comments Blood Pressure 117/69 08/13/2021 1029 EDT Pulse - - Temperature 36.8 ??C (98.2 ??F) 08/13/2021 0824 EDT Respiratory Rate 12 08/13/2021 1029 EDT Oxygen Saturation 94% 08/13/2021 1029 EDT Inhaled Oxygen Concentration - - Weight 107.8 kg (237 lb 9.6 oz) 08/13/2021 0824 EDT Height 177.8 cm (5' 10) 08/13/2021 0824 EDT Body Mass Index 34.09 08/13/2021 0824 EDT documented in this encounter Functional Status [...] Code Departure Means Destination Home or Self Shelter documented in this encounter H&P Notes * Kg Joyce MD - 08/13/2021 0930 EDT Endoscopy Sedation for Procedure History & Physical Date: 08/13/2021 Time: 9:27 Location: [facility] Endoscopy Planned Procedure: Upper Endoscopy Chief Complaint/Indications for Procedure: Araiza's esophagus without dysplasia History Previous Complication with Sedation and/or Anesthesia? No Allergies: No Known Allergies Current Medications: Current Outpatient Medications Medication ??? albuterol 90 mcg/actuation inhaler ??? cholecalciferol (VITAMIN D3) 50,000 unit capsule ??? losartan (COZAAR) 50 mg tablet ??? omeprazole (PRILOSEC) 20 mg capsule Current Facility-Administered Medications Medication Route Frequency ??? sodium chloride 0.9 % (NS) infusion intravenous PRN Or ??? lactated ringers (LR) infusion intravenous PRN ??? lidocaine (PF) 10 mg/mL (1 %) injection 2 mg intradermal PRN ??? lidocaine (PF) 10 mg/mL (1 %) injection 2 mg intradermal PRN ??? ondansetron (PF) (ZOFRAN) injection 4 mg intravenous Once PRN ??? sodium chloride 0.9 % (flush) flush 5 mL intravenous PRN Past Medical History: Past Medical History: Diagnosis Date ??? GERD (gastroesophageal reflux disease) ??? Hypertension ??? Lung disease asthma Social History: Past Surgical History: Procedure Laterality Date ??? HAND SURGERY Right Social History Tobacco Use ??? Smoking status: Never Smoker ??? Smokeless tobacco: Never Used Substance Use Topics ??? Alcohol use: Yes Alcohol/week: 10.0 standard drinks Types: 10 Cans of beer per week Family History: History reviewed. No pertinent family history. Review of Systems as pertinent: Physical Exam Vital Signs: BP 130/87 Temp 36.8 ??C (98.2 ??F) (Oral) Resp 18 Ht 177.8 cm (70) Wt (!) 107.8 kg (237 lb 9.6 oz) SpO2 100% BMI 34.09 kg/m?? Heart Examination: Cardiac Regularity: Regular Respiratory Examination: Respiratory Pattern: Regular Breath Sounds Right: Clear Breath Sounds Left: Clear Abdominal Examination: Additional physical exam related to the proposed procedure, patient activity, disease state and treatment as pertinent: Assessment Previous complications with sedation or anesthesia?: No Airway Concerns: None/NA Anesthesia Classification: ASA 2 Plan: Proceed with sedation for procedure Fasting Time: Date of Last Liquid: 08/13/21 Time of Last Liquid: 0530 Date of Last Solid: 08/12/21 Time of Last Solid: 1900 Patient Appropriate Candidate for Planned Sedation?: Yes Kg Joyce MD 08/13/2021 9:27 documented in this encounter Plan of Treatment Not on file documented as of this encounter Procedures Procedure Name Priority Date/Time Associated Diagnosis Comments ECG REPORT - SCANNED 08/15/2021 11:10 EDT SURGICAL PATHOLOGY Routine 08/13/2021 9:50 EDT Araiza's esophagus without dysplasia UPPER ENDOSCOPY (EGD) Routine 08/13/2021 9:30 EDT Araiza's esophagus without dysplasia documented in this encounter Results * ECG REPORT - SCANNED (08/15/2021 11:10 EDT) 08/15/2021 11:1 0 EDT Scan 2 Non Garment Sewing Machine Operator PROCEDURE/MINOR CATRACHITA GICAL ORDERABLES * SURGICAL PATHOLOGY (08/13/2021 9:50 EDT) Note to Patient The following pathology results have been interpreted by your pathologist and may be available to you before your health provider has had the opportunity to review them. Please allow time for your provider to receive these results and explore management options, if applicable. 08/29/2021 16:32 EDT [facility] Final Diagnosis A. ESOPHAGUS, 36 CM, BIOPSIES: - Squamocolumnar junction mucosa with intestinal metaplasia (Araiza's esophagus). - Negative for dysplasia. See comment. B. ESOPHAGUS, 38 CM, BIOPSIES: - Squamocolumnar junction mucosa with reactive changes. - No intestinal metaplasia. 08/29/2021 16:32 EDT [facility] Diagnosis Comment Part (A) was reviewed by Dr. Padgett at [facility] (see outside pathology report [id number]). 08/29/2021 16:32 [facility] Attestation By the signature below, the attending physician certifies that they have 1) personally conducted a gross and/or microscopic examination of the described specimen(s), and/or personally interpreted the results of laboratory testing of the described specimen(s), and 2) personally rendered or confirmed the above diagnosis. 08/29/2021 16:32 [facility] at 1632 Clinical History 08/29/2021 16:32 [facility] Gross Description A. The specimen is received in formalin labeled with ? Luz Elena Jon? and ? 36 mm bxs Barretts? are 6 mucosal fragments that range in size from 0.1 x 0.1 x 0.2 cm to 0.1 x 0.2 x 0.5 cm. The specimen is entirely submitted in 1 cassette. B. The specimen is received in formalin labeled with ? Luz Elena Jon? and ? 38 mm bxs Barretts? are 4 mucosal fragments that range in size from 0.1 x 0.1 x 0.2 cm to 0.1 x 0.3 x 0.3 cm. The specimen is entirely submitted in 1 cassette. Shelby Eden 08/13/2021 12:42 08/29/2021 16:32 EDT [facility] Performing Lab [facility] [place] [place] [facility] 08/2021 16:32 [facility] Scanned Images 08/29/2021 16:32 T [facility] Tissue ENTIRE ESOPHAGUS / Unknown 08/13/2021 9:50 EDT 08/13/2021 10:33 EDT Tissue specimen (specimen) ESOPHAGEAL STRUCTURE / Unknown 08/13/2021 9:50 EDT 08/13/2021 10:33 EDT Kg Joyce MD PATHOLOGY ORDERABLE S [facility] [address] [place] [address] * UPPER ENDOSCOPY (EGD) (08/13/2021 9:30 EDT) Anatomical Region Laterality Modality Endoscopy Narrative 08/13/2021 9:30 EDT [facility] ?? [address] [address], [place], [place] [address] ?? Patient Name ? LUZ ELENA JON Date of ? 1985 Record Number ? [id number] Date/Time of Procedure ?08/13/2021, 09:30:00 AM Endoscopist ?Kg Joyce ?? Progress Developer ? Referring Physician(s) ?? CLYDE Moulton Anesthesiologist ? PROCEDURE PERFORMED: Upper Endoscopy (EGD) INDICATIONS FOR EXAMINATION: Surveillance of non-dysplastic Araiza's Instruments: ? [id number] ([id number]) Medications: ?Fentanyl 175 mcg, Versed 9 mg I was in continuous face to face attendance during the administration of moderate sedation services that were monitored by an independent trained observer who had no other duties during the procedure. ? Visualization: ? Good ?Tolerance: Good ?Complications: None ? Extent of Exam: ?distal duodenum ? Limitations: ?? Procedure Technique: A physical exam was performed. Informed consent was obtained from the patient after explaining all the risks (perforation, bleeding, infection and adverse effects to the medicine) , benefits and alternatives to the procedure which the patient appeared to understand and so stated. ??The patient was connected to the monitoring devices and placed in the left lateral position. Continuous oxygen was provided with a nasal cannula and IV medicine administered through an indwelling cannula. After adequate conscious sedation was achieved, the esophagus was intubated and the scope advanced under direct visualization to the distal duodenum. The distal duodenum was identified by visual landmarks. The scope was subsequently removed slowly while carefully examining the color, texture, anatomy, and integrity of the mucosa on the way out. The patient was subsequently transferred to the recovery area in satisfactory condition. The following findings were noted: FINDINGS: Esophagus - salmon colored mucosa (C1M3) without visible nodules or lesions on white light exam or NBI. Cold forceps biopsies taken in four quadants every 2cm Stomach - normal Duodenum - normal with lymphangiectasia ENDOSCOPIC DIAGNOSIS: Non-dysplastic Araiza's RECOMMENDATIONS: Follow up biopsy results Continue omeprazole Recommend anesthesia with next endoscopy (anticipate repeat endoscopy in 5 years) Sedation Start: 09:31:01 AM ?? Sedation End: 09:46:06 AM Signature: Kg Joyce M.D. This note was electronically signed on 08/13/2021 09:49:49 AM By Kg Joyce M.D. This note was electronically signed on 08/13/2021 09:53:14 AM By gK Joyce M.D. Charmaine TANG GI PROCEDURE ORDERAB LES documented in this encounter Visit Diagnoses Diagnosis Araiza's esophagus without dysplasia Araiza's esophagus documented in this encounter Administered Medications Inactive Administered Medications - up to 3 most recent administrations Medication Order MAR Action Action Date Dose Rate Site fentaNYL citrate (PF) injection intravenous, PRN, Starting on Thu08/13/21 at 0929, Until e 08/13/21 at 0939, Routine Given 08/13/2021 9:39 EDT 25 mcg Given 08/13/2021 9:36 EDT 50 mcg Given 08/13/2021 9:32 EDT 50 mcg lactated ringers (LR) infusion 30 mL/hr, intravenous, PRN, Starting on e 08/13/21 at 0816, Until Tiana 08/15/21 at 0201, Routine, Preprocedure New Bag 08/13/2021 8:38 EDT 30 mL/hr 30 mL/hr midazolam (MDV) (VERSED) injection intravenous, PRN, Starting on Thu08/13/21 at 0929, Until e 08/13/21 at 0941, Routine Given 08/13/2021 9:41 EDT 1 mg Given 08/13/2021 9:38 EDT 2 mg Given 08/13/2021 9:36 EDT 2 mg documented in this encounter Discontinued Medications Medication Sig Discontinue Reason Start Date End Da te dexlansoprazole (DEXILANT) 60 mg capsule Take 60 mg by mouth daily. Alternate therapy 08/13/2021 erythromycin (ROMYCIN) 5 mg/gram (0.5 %) ophthalmic ointment Place 1 cm into the right eye 4 times daily. 5-7 days Therapy completed 08/13/2021 documented as of this encounter Orders Medications Ordered That Clement ht Not Have Been Administered Count Last Ordered Date First Ordered Date lidocaine (PF) 10 mg/mL (1 % ) injection 2 mg 2 08/13/2021 ondansetron (PF) (ZOFRAN) injection 4 mg 1 08/13/2021 sodium chloride 0.9 % (flush) flush 5 mL 1 08/13/2021 sodium chloride 0.9 % (NS) infusion 1 08/13 documented in this encounter Care Teams Director Agency & Strategic Partnerships Relationship Specialty Start Date End Date Olya Bauman MD [address] [place] [address] PCP - General 11/05/17 07/06/23 documented as of this encounter
--- OUTSIDE RECORDS SUMMARY | 2023-12-25 15:24 | XMS_ITS | Encounter Summary ---
Author Organization [facility] Address [address] [place] [address] Care Team Providers Care Oim Architect Name Role Phone Olya Bauman MD Primary Care Provider [phone] Encounter Details Date Type Department Care Team (Latest Contact Info) Description 01/28/2021 Travel Social History Tobacco Use Types Packs/Day [...] on filedocumented in this encounter Care Teams Oim Architect Relationship Specialty Start Date End Date Olya Bauman MD [address] [place] [address] PCP - General 11/05/17 07/06/23 documented as of this encounter
--- OUTSIDE RECORDS SUMMARY | 2023-12-25 15:24 | XMS_ITS | Encounter Summary ---
Author Organization [facility] Address [address] [place] [address] Care Team Providers Care Clother In Name Role Phone Olya Bauman MD Primary Care Provider [phone] Encounter Details Date Type Department Care Team (Late st Contact Info) Description 12/21/2018 Results Only [facility] - [facility] [place] Lab - [address] [place], [place] [id number] Charmaine Bennett PA [address] [place] [address] Social History Tobacco Use Types [...] Associated Diagnosis Comments COMPREHENSIVE METABOLIC POC - [facility] Routine 12/21/2018 12:05 EDT documented in this encounter Results * COMPREHENSIVE METABOLIC POC - [facility] (12/21/2018 12:05 EDT) Albumin % 4.2 3.50 - 5.00 G/DL 12/21/2018 12:07 [facility] ALKALINE PHOSPHATASE - [facility] 67 38.00 - 126.00 U/L 12/21/2018 12:07 [facility] BILIRUBIN TOTAL 0.9 0.20 - 1.30 MG/DL 12/21/2018 12:07 [facility] BUN - [facility] 18 7.00 - 20.00 MG/DL 12/21/2018 12:07 [facility] CALCIUM - [facility] 9.1 8.50 - 10.50 MG/DL 12/21/2018 12:07 [facility] Chloride 102 98.00 - 107.00 MMOL/L 12/21/2018 12:07 [facility] CO2 Total 27 22.00 - 30.00 MMOL/L 12/21/2018 12:07 [facility] CREATININE 1.2 0.70 - 1.50 MG/DL 12/21/2018 12:07 [facility] Anion Gap 10 7 - 17 MMOL/L 12/21/2018 12:07 [facility] GLUCOSE - [facility] 92 70.00 - 100.00 MG/DL 12/21/2018 12:07 [facility] Potassium 4.4 3.50 - 5.10 MMOL/L 12/21/2018 12:07 [facility] Sodium 139 137.00 - 145.00 MMOL/L 12/21/2018 12:07 [facility] TOTAL PROTEIN - [facility] 7.4 6.30 - 8.20 G/DL 12/21/2018 12:07 [facility] SGOT/AST - [facility] 27 15.00 - 46.00 U/L 12/21/2018 12:07 [facility] SGPT/ALT - [facility] 35 13.00 - 69.00 U/L 12/21/2018 12:07 [facility] 12/21/2018 12:0 5 EDT 12/21/2018 12:05 EDT Narrative [facility] - 12/21/2018 12:07 EDT MULTIPLY RESULT BY 1.210 FOR PATIENTS EGFR CALCULATED USING THE IDMS-TRACEABLE MDRD STUDY Charmaine TANG CHEMISTRY & BLOOD GA S ORDERABLES [facility] documented in this encounter Visit Diagnoses Not on filedocumented in this encounter Care Teams Clother In Relationship Specialty Start Date End Date Olya Bauman MD [address] [place] [address] PCP - General 11/05/17 07/06/23 documented as of this encounter
--- OUTSIDE RECORDS SUMMARY | 2023-12-25 15:24 | XMS_ITS | Encounter Summary ---
Author Organization [facility] Address [address] [place] [address] Care Team Providers Care Telephone Worker Name Role Phone Olya Bauman MD Primary Care Provider [phone] Encounter Details Date Type Department Care Team (Late st Contact Info) Description 08/10/2021 10:00 EDT Phlebotomy Only [facility] - Outpatient Phlebotomy Drawing [address] [place] [address] Lab, [facility] Op Phlebotomy Pre-operative laboratory examination Social History Tobacco Use Types Packs/Day [...] Procedure Name Priority Date/Time Associated Diagnosis Comments [id number] [facility] [place] ([place]ING ONLY) Today 08/10/2021 10:01 EDT Pre-operative laboratory examination COVID-19 TESTING Routine 08/10/2021 10:0 1 EDT Pre-operative laboratory examination documented in this encounter Results * COVID-19 [facility] [place] (TESTING ONLY) (08/10/2021 10:01 EDT) Swab BOTH ANTERIOR NARES / Unknown Swab / Unknown 08/10/2021 10:01 EDT 08/10/2021 10:19 EDT Kg Joyce MD MICROBIOLOGY - GENE RAL ORDERABLES Performing Organization Address City/[facility] Co de Phone Number [facility] [address] [place] [address] * COVID-19 TESTING (08/10/2021 10:01 EDT) COVID-19 rt-PCR Result Negative Negative 08/11/2021 1:37 EDT [facility] Performing Lab Diasorin Liaison [facility] 08/11/2021 1:37 EDT [facility] Swab BOTH ANTERIOR NARES / Unknown Swab / Unknown 08/10/2021 10:01 EDT 08/10/2021 10:19 EDT Kg Joyce MD MICROBIOLOGY - GENE RAL ORDERABLES Performing Organization Address City/[facility] Co de Phone Number [facility] [address] [place] [address] documented in this encounter Visit Diagnoses Diagnosis Pre-operative laboratory examination Pre-procedural laboratory examination documented in this encounter Care Teams Telephone Worker Relationship Specialty Start Date End Date Olya Bauman MD [address] [place] [address] PCP - General 11/05/17 07/06/23 documented as of this encounter
--- OUTSIDE RECORDS SUMMARY | 2023-12-25 15:24 | XMS_ITS | Encounter Summary ---
Author Organization [facility] Address [address] [place] [address] Care Team Providers Care Parking Lot Supervisor Name Role Phone Olya Bauman MD Primary Care Provider [phone] Encounter Details Date Type Department Care Team (Late st Contact Info) Description 08/05/2021 Transcribe Orders [facility] Endoscopy [address] [place], [place] [id number] Kg Joyce MD [facility] [address] [place] [address] Pre-operative laboratory examination (Primary Dx) Social History Tobacco Use Types [...] documented as of this encounter Results * COVID-19 TESTING (08/10/2021 10:01 EDT) COVID-19 rt-PCR Result Negative Negative 08/11/2021 1:37 EDT [facility] Performing Lab Diasorin Liaison [facility] 08/11/2021 1:37 EDT [facility] Swab BOTH ANTERIOR NARES / Unknown Swab / Unknown 08/10/2021 10:01 EDT 08/10/2021 10:19 EDT Kg Joyce MD MICROBIOLOGY - GENE RAL ORDERABLES [facility] [address] [place] [address] documented in this encounter Visit Diagnoses Diagnosis Pre-operative laboratory examination- Primary Pre-procedural laboratory examination documented in this encounter Care Teams Parking Lot Supervisor Relationship Specialty Start Date End Date Olya Bauman MD [address] [place], [place] [address] PCP - General 11/05/17 07/06/23 documented as of this encounter
--- OUTSIDE RECORDS SUMMARY | 2023-12-25 15:24 | XMS_ITS | Encounter Summary ---
Author Organization [facility] Address [address] [place] [address] Care Team Providers Care Care Management Assistant Name Role Phone Olya Bauman MD Primary Care Provider [phone] Encounter Details Date Type Department Care Team (Late st Contact Info) Description 09/28/2019 Results Only [facility] - Main [place] [address] [place], [place] [id number] Charmaine Bennett PA [address] [place] [address] Social History Tobacco Use Types [...] Priority Date/Time Associated Diagnosis Comments VITAMIN D 25 POC - [facility] Routine 09/28/2019 15:49 EDT LIPID PANEL POC - CV Routine 0 15:49 EDT COMPREHENSIVE METABOLIC POC - CV Routine 09/28/2019 15:49 EDT MAGNESIUM POC - CV Routine 09/28/2019 15:49 EDT CBC W/PLT & DIFF,POINT OF CARE - [facility] Routine 09/28/2019 15:49 EDT POCT CHOLESTEROL LDL ([facility]) Routine 09/28/2019 15:49 EDT documented in this encounter Results * VITAMIN D 25 POC - CV (09/28/2019 15:49 EDT) VIT D, 25 HYDROXY - [facility] 43 30 - 100 NG/ML 09/28/2019 15:50 EDT [facility] 09/28/2019 15:4 9 EDT 09/28/2019 15:49 EDT [facility] - 09/28/2019 15:50 EDT CHRONIC RENAL IMPAIRMENT IS DEFINED GFR <60 MULTIPLY RESULT BY 1.210 FOR PATIENTS EGFR CALCULATED USING THE IDMS-TRACEABLE MDRD STUDY Charmaine TANG CHEMISTRY & BLOOD GA S ORDERABLES [facility] [address] [place] [address] * MAGNESIUM POC - [facility] (09/28/2019 15:49 EDT) Magnesium 2.00 1.60 - 2.30 MG/DL 09/28/2019 15:50 EDT [facility] 09/28/2019 15:4 9 EDT 09/28/2019 15:49 EDT Narrative [facility] - 09/28/2019 15:50 EDT CHRONIC RENAL IMPAIRMENT IS DEFINED GFR <60 MULTIPLY RESULT BY 1.210 FOR PATIENTS EGFR CALCULATED USING THE IDMS-TRACEABLE MDRD STUDY Charmaine TANG CHEMISTRY & BLOOD GA S ORDERABLES Performing Organization Address [facility] Co de Phone Number [facility] [address] [place] [address] * (ABNORMAL) LIPID PANEL POC - [facility] (09/28/2019 15:49 EDT) Triglyceride 301(H) 0.00 - 150.00 MG/DL 09/28/2019 15:50 EDT [facility] Cholesterol 150 0.00 - 200.00 MG/DL 09/28/2019 15:50 EDT [facility] HDL 27(L) 40.00 - 60.00 MG/DL 09/28/2019 15:50 EDT [facility] 09/28/2019 15:4 9 EDT 09/28/2019 15:49 EDT Narrative [facility] - 09/28/2019 15:50 EDT CHRONIC RENAL IMPAIRMENT IS DEFINED GFR <60 MULTIPLY RESULT BY 1.210 FOR PATIENTS EGFR CALCULATED USING THE IDMS-TRACEABLE MDRD STUDY Charmaine TANG CHEMISTRY & BLOOD GA S ORDERABLES Performing Organization Address [facility] Number [facility] [address] [place] [address] * POCT CHOLESTEROL LDL ([facility]) (09/28/2019 15:49 EDT) LDL CHOLESTEROL - [facility] 63 60 - 100 mg/dl 09/28/2019 15:50 EDT [facility] 09/28/2019 15:4 9 EDT 09/28/2019 15:49 EDT Narrative [facility] - 09/28/2019 15:50 EDT CHRONIC RENAL IMPAIRMENT IS DEFINED GFR <60 MULTIPLY RESULT BY 1.210 FOR PATIENTS EGFR CALCULATED USING THE IDMS-TRACEABLE MDRD STUDY Charmaine TANG POINT OF CARE TEST O RDERABLES Performing Organization Address City/[facility] Co de Phone Number [facility] [address] [place] [address] * COMPREHENSIVE METABOLIC POC - [facility] (09/28/2019 15:49 EDT) Albumin % 4.2 3.50 - 5.00 G/DL [facility] ALKALINE [facility]OSPHATASE - [facility] 64 38.00 - 126.00 U/L 09/28/2019 15:50 [facility] BILIRUBIN TOTAL 1.1 0.20 - 1.30 MG/DL 09/28/2019 15:50 [facility] BUN - [facility] 17 7.00 - 20.00 MG/DL 09/28/2019 15:50 [facility] CALCIUM - [facility] 8.7 8.50 - 10.50 MG/DL 09/28/2019 15:50 [facility] Chloride 102 98.00 - 107.00 MMOL/L 09/28/2019 15:50 [facility] CO2 Total 28 22.00 - 30.00 MMOL/L 09/28/2019 15:50 [facility] CREATININE 1.2 0.70 - 1.50 MG/DL 09/28/2019 15:50 [facility] Anion Gap 8 7 - 17 09/28/2019 15:50 [facility] GLUCOSE - [facility] 96 70.00 - 100.00 MG/DL 09/28/2019 15:50 [facility] Potassium 4.3 3.50 - 5.10 MMOL/L 09/28/2019 15:50 [facility] Sodium 138 137.00 - 145.00 MMOL/L 09/28/2019 15:50 [facility] TOTAL PROTEIN - [facility] 7.5 6.30 - 8.20 G/DL 09/28/2019 15:50 [facility] SGOT/AST - [facility] 32 15.00 - 46.00 U/L 09/28/2019 15:50 [facility] SGPT/ALT - [facility] 32 0.00 - 50.00 U/L 09/28/2019 15:50 [facility] 09/28/2019 15:4 9 EDT 09/28/2019 15:49 EDT Narrative [facility] - 09/28/2019 15:50 EDT CHRONIC RENAL IMPAIRMENT IS DEFINED GFR <60 MULTIPLY RESULT BY 1.210 FOR PATIENTS EGFR CALCULATED USING THE IDMS-TRACEABLE MDRD STUDY Charmaine TANG CHEMISTRY & BLOOD GA S ORDERABLES [facility] [address] [place] [address] * (ABNORMAL) CBC W/PLT & DIFF,POINT OF CARE - [facility] (09/28/2019 15:49 EDT) Gran # 4.5 1.4 - 6.5 X10E3/UL [facility]/2019 [facility]AN % - [facility] 61.1 42.2 - 75.2 % 09/28/2019 15:50 [facility] HEMATOCRIT - [facility] 46.2 35.0 - 60.0 % 09/28/2019 15:50 [facility] HEMOGLOBIN - [facility] 15.2 11.0 - 18.0 G/DL 09/28/2019 15:50 [facility] LYMPH # - [facility] 2.3 1.2 - 3.4 X10E3/UL 09/28/2019 15:50 [facility] LYMPH% - [facility] 31.3 20.5 - 51.1 % 09/28/2019 15:50 [facility] MEAN CORPUSCULAR HGB - [facility] 28.3 27.0 - 31.0 PG 09/28/2019 15:50 [facility] MEAN CORPUSCULAR HGB CONC - [facility] 32.9(L) 33.0 - 37.0 G/DL 09/28/2019 15:50 [facility] MEAN CELL VOLUME - [facility] 86.0 80.0 - 99.9 FL 09/28/2019 15:50 [facility] MONO # - [facility] 0.6 0.1 - 0.6 X10E3/UL 09/28/2019 15:50 EDT [facility] MONO% - [facility] 7.6 1.7 - 9.3 % 09/28/2019 [facility] MEAN PLATELET VOLUME - [facility] 8.9 7.8 - 11.0 FL 09/28/2019 15:50 [facility] PLATELET COUNT 141(L) 150 - 450 X10E3/UL 09/28/2019 15:50 [facility] RED BLOOD COUNT - [facility] 5.37 4.00 - 6.00 X10E6/UL 09/28/2019 15:50 [facility] RED CELL DISTRI WIDTH - [facility] 13.3 11.6 - 13.7 % 09/28/2019 15:50 [facility] WHITE BLOOD COUNT - [facility] 7.3 4.5 - 10.5 X10E3/UL 09/28/2019 15:50 [facility] 09/28/2019 15:4 9 EDT 09/28/2019 15:49 EDT Narrative [facility] - 09/28/2019 15:50 EDT CHRONIC RENAL IMPAIRMENT IS DEFINED GFR <60 MULTIPLY RESULT BY 1.210 FOR PATIENTS EGFR CALCULATED USING THE IDMS-TRACEABLE MDRD STUDY Charmaine TANG CHEMISTRY & BLOOD GA S ORDERABLES [facility] [address] [place] [address] documented in this encounter Visit Diagnoses Not on filedocumented in this encounter Care Teams Care Management Assistant Relationship Specialty Start Date End Date Olya Bauman MD [address] [place] [address] PCP - General 11/05/17 07/06/23 documented as of this encounter
--- OUTSIDE RECORDS SUMMARY | 2023-12-25 15:24 | XMS_ITS | Encounter Summary ---
Author Organization [facility] Address [address] [place] [address] Care Team Providers Care Nurse General Duty Name Role Phone Olya Bauman MD Primary Care Provider [phone] Reason for Visit * Reason Comments Other covid testing Encounter Details Date Type Department Care Team (Late st Contact Info) Description 03/14/2020 10:00 EST Office Visit [facility] - Mobile Testing Department [address] [place] [address] Nurse, [facility] Mobile Testing Screening for viral disease (Primary [...] as of this encounter Progress Notes * Charmaine Shah - 03/14/2020 1000 EST Covid specimen collected by: Angeles Shah CCA II Patient tolerated well. Covid instructional hand-out given. documented in this encounter Plan of Treatment Not on file documented as of this encounter Visit Diagnoses Diagnosis Screening for viral disease- Primary Special screening examination for unspecified viral disease documented in this encounter Care Teams Nurse General Duty Relationship Specialty Start Date End Date Olya Bauman MD [address] [place] [address] PCP - General 11/05/17 07/06/23 documented as of this encounter
--- OUTSIDE RECORDS SUMMARY | 2023-12-25 15:24 | XMS_ITS | Encounter Summary ---
Author Organization [facility] Address [address] [place] [address] Care Team Providers Care Medical Imaging Specialist Name Role Phone Olya Bauman MD Primary Care Provider [phone] Encounter Details Date Type Department Care Team (Late st Contact Info) Description 12/23/2019 Results Only [facility] - Main [place] [address] [place], [place] [id number] Charmaine Bennett PA [address] [place] [address] Social History Tobacco Use Types [...] Associated Diagnosis Comments LIPID PANEL POC - [facility] [place] [place] Routine 0 12:34 EDT COMPREHENSIVE METABOLIC POC - CV Routine 12/23/2019 12:34 EDT POCT CHOLESTEROL LDL ([facility] [place] [place]) Routine 12/23/2019 12:34 EDT documented in this encounter Results * (ABNORMAL) LIPID PANEL POC - [facility] [place] [place] (12/23/2019 12:34 EDT) Triglyceride 115 0.00 - 150.00 MG/DL 12/23/2019 12:36 EDT [facility] Cholesterol 157 0.00 - 200.00 MG/DL 12/23/2019 12:36 EDT [facility] HDL 32(L) 40.00 - 60.00 MG/DL 12/23/2019 12:36 EDT [facility] 12/23/2019 12:3 4 EDT 12/23/2019 12:34 EDT [facility] [place] [facility] - 12/23/2019 12:36 EDT CHRONIC RENAL IMPAIRMENT IS DEFINED GFR <60 MULTIPLY RESULT BY 1.210 FOR PATIENTS EGFR CALCULATED USING THE IDMS-TRACEABLE MDRD STUDY Charmaine TANG CHEMISTRY & BLOOD GA S ORDERABLES [facility] [address] [place] [address] * (ABNORMAL) POCT CHOLESTEROL LDL ([facility] [place] [place]) (12/23/2019 12:34 EDT) LDL CHOLESTEROL - [facility] [place] 102(H) 60 - 100 mg/dl 12/23/2019 12:36 EDT [facility] 12/23/2019 12:3 4 EDT 12/23/2019 12:34 EDT [facility] - 12/23/2019 12:36 EDT CHRONIC RENAL IMPAIRMENT IS DEFINED GFR <60 MULTIPLY RESULT BY 1.210 FOR PATIENTS EGFR CALCULATED USING THE IDMS-TRACEABLE MDRD STUDY Charmaine TANG POINT OF CARE TEST O RDERABLES [facility] [address] [place] [address] * (ABNORMAL) COMPREHENSIVE METABOLIC POC - [facility] [place] (12/23/2019 12:34 EDT) Albumin % 4.5 3.50 - 5.00 G/DL 12/23/2019 12:36 [facility] ALKALINE PHOSPHATASE - [facility] [place] [place] 64 38.00 - 126.00 U/L 12/23/2019 12:36 [facility] BILIRUBIN TOTAL 1.8(H) 0.20 - 1.30 MG/DL 12/23/2019 12:36 [facility] BUN - [facility] [place] [place] 19 7.00 - 20.00 MG/DL 12/23/2019 12:36 [facility] CALCIUM - [facility] [place] [place] 8.9 8.50 - 10.50 MG/DL 12/23/2019 12:36 [facility] Chloride 103 98.00 - 107.00 MMOL/L 12/23/2019 12:36 [facility] CO2 Total 24 22.00 - 30.00 MMOL/L 12/23/2019 12:36 [facility] CREATININE 1.2 0.70 - 1.50 MG/DL 12/23/2019 12:36 [facility] Anion Gap 12 7 - 17 12/23/2019 12:36 [facility] GLUCOSE - [facility] [place] [place] 83 70.00 - 100.00 MG/DL 12/23/2019 12:36 [facility] Potassium 4.4 3.50 - 5.10 MMOL/L 12/23/2019 12:36 [facility] Sodium 139 137.00 - 145.00 MMOL/L 12/23/2019 12:36 [facility] TOTAL PROTEIN - [facility] [place] [place] 7.8 6.30 - 8.20 G/DL 12/23/2019 12:36 [facility] SGOT/AST - [facility] [place] [place] 39 15.00 - 46.00 U/L 12/23/2019 12:36 [facility] SGPT/ALT - [facility] [place] [place] 48 0.00 - 50.00 U/L 12/23/2019 12:36 EDT [facility] 12/23/2019 12:3 4 EDT 12/23/2019 12:34 EDT Narrative [facility] - 12/23/2019 12:36 EDT CHRONIC RENAL IMPAIRMENT IS DEFINED GFR <60 MULTIPLY RESULT BY 1.210 FOR PATIENTS EGFR CALCULATED USING THE IDMS-TRACEABLE MDRD STUDY Charmaine TANG CHEMISTRY & BLOOD GA S ORDERABLES [facility] [address] [place] [address] documented in this encounter Visit Diagnoses Not on filedocumented in this encounter Care Teams Medical Imaging Specialist Relationship Specialty Start Date End Date Olya Bauman MD [address] [place] [address] PCP - General 11/05/17 07/06/23 documented as of this encounter
--- OUTSIDE RECORDS SUMMARY | 2023-12-25 15:24 | XMS_ITS | Encounter Summary ---
Author Organization [facility] Address [address] [place] [address] Care Team Providers Care Senior Cyber Intelligence Analyst Name Role Phone Olya Bauman MD Primary Care Provider [phone] Reason for Visit * Reason Comments Follow-up Encounter Details Date Type Department Care Team (Late st Contact Info) Description 12/05/2020 16:[address] [facility] [place] Orthopedics & Podiatry [address] [place], [place] [address] Venkat [place] [address] [place] [address] Metatarsalgia of right foot (Primary [...] have Coronavirus / COVID-19? No / Unsure 12/05/2020 16:37 EDT documented as of this encounter Last Filed Vital Signs Vital Sign Reading Time Taken Comments Blood Pressure - - Pulse - - Temperature 36.8 ??C (98.2 ??F) 12/05/2020 1637 EDT Respiratory Rate - - Oxygen Saturation - - Inhaled Oxygen Concentration - - Weight - [...] this encounter Progress Notes * Venkat Wakefield, DPM - 12/05/2020 1630 EDT SUBJECTIVE: Chief Complaint Patient presents with ??? Right Foot - Follow-up HPI Shaka Liu is a 35 y.o. male presenting in clinic today for a follow up of metatarsalgia of Right foot. Last seen on 10/02/20. Patient reports gradual improvement. He had decent improvement almost right away with orthotic insoles and then it has gradually improved further since then. Not pain-free but seems to be going in the right direction. The past medical, family and social history have been reviewed in the patient chart. Medications and allergies reviewed. OBJECTIVE: Temp 36.8 ??C (98.2 ??F) General Exam: Alert and oriented. No acute distress. Appropriate affect. Normal cognition. Dermatologic Exam: No contributory lesions. Orthopedic Exam: Mild pain on palpation right fifth metatarsophalangeal joint and distal fifth metatarsal. No acute inflammation. Hallux valgus is present. Moderate bunion prominence. Neurologic Exam: No weakness or motor deficit. There is a slight decrease in cutaneous sensation distal medial right great toe. ASSESSMENT AND PLAN: 1. Metatarsalgia of right foot 2. Neuritis of right foot 3. Hallux valgus, right He is improving but it certainly appears that the BFO insoles are going to wear out much too fast for him. Needs to replace these with the [employer] Wedron XPE orthotic, 3 degree posted, size 5, which can be purchased direct through [employer]. Follow-up in about 2 months. Reassess and do orthotic modifications as necessary. Patient Active Problem List Diagnosis ??? Esophageal [...] medications for this visit. No Known Allergies Venkat Wakefield DPM [facility] Orthopedic [place], [place] documented in this encounter Plan of Treatment Not on file documented as of this encounter Visit Diagnoses Diagnosis Metatarsalgia of right foot- Primary Enthesopathy of ankle and tarsus, unspecified Neuritis of right foot Hallux valgus, right documented in this encounter Care Teams Senior Cyber Intelligence Analyst Relationship Specialty Start Date End Date Olya Bauman MD [address] [place] [address] PCP - General 11/05/17 07/06/23 documented as of this encounter
--- OUTSIDE RECORDS SUMMARY | 2023-12-25 15:24 | XMS_ITS | Encounter Summary ---
Author Organization [facility] Address [address] [place] [address] Care Team Providers Care Hand Bulldozer Name Role Phone Olya Bauman MD Primary Care Provider [phone] Encounter Details Date Type Department Care Team (Late st Contact Info) Description 06/17/2021 Results Only [facility] Laboratory Services - [facility] [address] [place] [address] Charmaine Bennett PA [address] [place], [place] [id number] Social History Tobacco Use Types Packs/Day Years [...] PROFILE (INCLUDES CHOLESTEROL, TRIGLYCERIDES, HDL, LDL) Routine 06/17/2021 6:38 EDT documented in this encounter Results * (ABNORMAL) LIPID PROFILE (INCLUDES CHOLESTEROL, TRIGLYCERIDES, HDL, LDL) (06/17/2021 6:38 EDT) Cholesterol 149.00 0.00 - 200.00 mg/dL [facility] dHDL 32.00(L) 40.00 - 60.00 mg/dL [facility] Triglycerides 110.00 0.00 - 150.00 mg/dL [facility] 06/17/2021 6:38 EDT Charmaine TANG CHEMISTRY & BLOOD GA S ORDERABLES Performing Organization Address City/State/[facility] Co de Phone Number [facility] [address] [place], [place] [address] documented in this encounter Visit Diagnoses Not on filedocumented in this encounter Care Teams Hand Bulldozer Relationship Specialty Start Date End Date Olya Bauman MD [address] [place], [place] [address] PCP - General 11/05/17 07/06/23 documented as of this encounter
--- OUTSIDE RECORDS SUMMARY | 2023-12-25 15:24 | XMS_ITS | Encounter Summary ---
Author Organization [facility] Address [address] [place] [address] Care Team Providers Care Lozenge Dough Mixer Name Role Phone Olya Bauman MD Primary Care Provider [phone] Encounter Details Date Type Department Care Team (Late st Contact Info) Description 06/17/2021 Results Only [facility] Laboratory Services - [facility] [address] [place] [address] Charmaine Bennett PA [address] [place], [place] [id number] Social History Tobacco Use Types Packs/Day Years [...] Date/Time Associated Diagnosis Comments LDL CHOLESTEROL Routine 06/17/2021 6:38 EDT documented in this encounter Results * LDL CHOLESTEROL (06/17/2021 6:38 EDT) Calculated LDL 95 60 - 100 mg/dL [facility] 06/17/2021 6:38 EDT Charmaine TANG HEMATOLOGY & PF4 ORD ERABLES [facility] [address] [place] [address] documented in this encounter Visit Diagnoses Not on filedocumented in this encounter Care Teams Lozenge Dough Mixer Relationship Specialty Start Date End Date Olya Bauman MD [address] [place], [place] [id number] PCP - General 11/05/17 07/06/23 documented as of this encounter
--- OUTSIDE RECORDS SUMMARY | 2023-12-25 15:24 | XMS_ITS | Encounter Summary ---
Author Organization [facility] Address [address] [place] [address] Care Team Providers Care Bonding Machine Setter Name Role Phone Olya Bauman MD Primary Care Provider [phone] Encounter Details Date Type Department Care Team (Late st Contact Info) Description 02/06/2021 Results Only [facility] Laboratory Services - [facility] [address] [place] [address] Charmaine Bennett PA [address] [place], [place] [phone] Social History Tobacco Use Types Packs/Day Years [...] Date/Time Associated Diagnosis Comments LDL CHOLESTEROL Routine 02/06/2021 8:15 EST documented in this encounter Results * (ABNORMAL) LDL CHOLESTEROL (02/06/2021 8:15 EST) Calculated LDL 119(H) 60 - 100 mg/dL [facility] 02/06/2021 8:15 EST Charmaine TANG HEMATOLOGY & PF4 ORD ERABLES [facility] [address] [place], [place] [phone] documented in this encounter Visit Diagnoses Not on filedocumented in this encounter Care Teams Bonding Machine Setter Relationship Specialty Start Date End Date Olya Bauman MD [address] [place], [place] [phone] PCP - General 11/05/17 07/06/23 documented as of this encounter
--- OUTSIDE RECORDS SUMMARY | 2023-12-25 15:24 | XMS_ITS | Encounter Summary ---
Author Organization [facility] Address [address] [place] [address] Care Team Providers Care Tire Fabricator Name Role Phone Olya Bauman MD Primary Care Provider [phone] Reason for Visit * Reason Onset Date Comments Other 03/13/2020 Encounter Details Date Type Department Care Team (Late st Contact Info) Description 03/13/2020 Telephone [facility] - Mobile Testing Department [address] [place] [address] Mar Medina RN Other Social History Tobacco Use Types Packs/Day Years [...] No 11/06/2017 documented as of this encounter Miscellaneous Notes * Telephone Encounter - Matt Ventura - 03/13/2020 1513 EST C-19 screening recommended by provider. Routed for testing ordering. 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 Spoke to patient and verbally gave instructions for Testing Facility. Patient is instructed to be there at 10:00am sharp, 03/14/20 * Telephone Encounter - Josselyn Crook - 03/13/2020 1448 EST LMOM for patient to return call to schedule COVID testing * Telephone Encounter - Mar Medina RN - 03/13/2020 1439 EST This patient is calling the [facility] COVID-19 information center with concern for COVID-19. The patient has had achiness, chest tightness, congestion and shortness of breath for 2 days. COVID-19 testing is indicated according to current [facility] algorithm. The patient has been previously tested for Covid-19. 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 If patient is a [facility] Employee Covid Test was ordered for the following reason: Patient is not immunocompromised. The patient is not a resident of a detention or assisted living facility. (If patient is, home health will facilitate testing once ordered). Patient was not offered a telehealth visit with their PCP or [facility] provider to further discuss symptoms and patient This patient is currently stable, and was advised to go to the ER or call 911 with any worsening symptoms. COVID-19 Home Instructions COVID-19 is caused by a virus, spread mainly by close contact, being within 6 feet of a person withthe illness, especially if both persons aren't wearing a mask and are indoors. Prevention measures include limiting contacts with persons that aren't in your household, wearing amask and maintaining at least 6 feet distance when you are around someone that isn't from your household, covering your cough or sneeze, and practicing good handwashing. Wiping down surfaces that aretouched regularly is recommended as well. Common symptoms include cough, fever, shortness of breath, nasal congestion, fatigue, muscle aches,headaches, loss of taste and/or smell, nausea, vomiting and/or diarrhea. If you are ill or think you might be ill with COVID-19, we recommend getting plenty of rest, staying hydrated, and managing symptoms. You may take Tylenol or ibuprofen for body aches and fevers, though we recommend checking with your PCP prior to taking over the counter medications if you have chronic medical conditions. It is important to seek medical care if you have worsening symptoms of shortness of breath, weakness, dizziness, or have symptoms that persist or are worsening after 14 days. Please contact your PCP office or our [facility] clinic if symptoms worsen or persist beyond 14 days. Call for immediate care if you have a true medical emergency. What do I do while I'm waiting for my test result? You should self-isolate, which means stay at home and separate yourself from others. Do not leave your home, ie: do not go to the grocery store, pharmacy, non-emergency medical appointments, or to visit friends or family. If you might have been exposed to COVID-19 (ie: travel to a high-risk area, exposure to someone with a possible or known COVID positive case), you should self-isolate as well, for 14 days following exposure, or for 7 days with negative COVID-19 test. You may discontinue self-isolation when: You have a negative test or you are fever free for 24 hours without fever reducing medication AND 10 days have passed since your symptoms started AND your symptoms are improving. How will I get my test results? A nurse from the call center will call with your test results, typically within 3-4 days of the test. Log into your patient portal, [facility] to be notified immediately of your result by email. Ask for more information about MyChart at the testing site. You will also be given educational information at the testing site. If you test positive, you will be getting more information from an clinician about when and how to follow up with a healthcare provider. Please visit the [facility] and the [place] Department of Health website for more information. documented in this encounter Plan of Treatment Not on file documented as of this encounter Visit Diagnoses Diagnosis Cough- Primary documented in this encounter Care Teams Tire Fabricator Relationship Specialty Start Date End Date Olya Bauman MD [address] [place] [address] PCP - General 11/05/17 07/06/23 documented as of this encounter
--- OUTSIDE RECORDS SUMMARY | 2023-12-25 15:24 | XMS_ITS | Encounter Summary ---
Author Organization [facility] Address [address] [place] [address] Care Team Providers Care Popped Corn Oven Attendant Name Role Phone Olya Bauman MD Primary Care Provider [phone] Encounter Details Date Type Department Care Team (Late st Contact Info) Description 02/19/2021 Transcribe Orders [facility] [address] [place], [place] [id number] Kg Joyce MD [facility] [address] [place] [address] Screening for viral disease (Primary Dx) Social [...] disease documented in this encounter Care Teams Popped Corn Oven Attendant Relationship Specialty Start Date End Date Olya Bauman MD [address] [place] [address] PCP - General 11/05/17 07/06/23 documented as of this encounter
--- OUTSIDE RECORDS SUMMARY | 2023-12-25 15:24 | XMS_ITS | Encounter Summary ---
Author Organization [facility] Address [address] [place] [address] Care Team Providers Care Police Matron Name Role Phone Olya Bauman MD Primary Care Provider [phone] Encounter Details Date Type Department Care Team (Late st Contact Info) Description 04/16/2017 Historical Results Only [facility] - [address] [id number] StephanJenn MD [address] [place] [id number] Social History Tobacco Use Types Packs/Day Years Used Date Smoking Tobacco: Never Assessed Sex and Gender Information Value Date Recorded Sex Assigned at Not on file Gender Identity Male 09/10/2020 8:42 EDT Sexual Orientation Not on file documented as of this encounter Plan of Treatment Not on file documented as of this encounter Procedures Procedure Name Priority Date/Time Associated Diagnosis Comments INFLUENZA ERIC - [facility] Routine 04/16/2017 19:23 EST documented in this encounter Results * INFLUENZA ERIC - CV (04/16/2017 19:23 EST) INFLUENZA A - CV NEGATIVE NEGATIVE 04/16/2017 19:23 EST [facility] INFLUENZA B - [facility] NEGATIVE NEGATIVE 04/16/2017 19:23 EST [facility] 04/16/2017 19:2 3 EST 04/16/2017 19:23 EST Jenn Rothman MD CHEMISTRY & BLOOD GA S ORDERABLES [facility] documented in this encounter Visit Diagnoses Not on filedocumented in this encounter Care Teams Police Matron Relationship Specialty Start Date End Date Olya Bauman MD [address] [place] [address] PCP - General 11/05/17 07/06/23 documented as of this encounter
--- OUTSIDE RECORDS SUMMARY | 2023-12-25 15:24 | XMS_ITS | Encounter Summary ---
Author Organization [facility] Address [address] [place] [address] Care Team Providers Care Passenger Relations Representative Name Role Phone Olya Bauman MD Primary Care Provider [phone] Encounter Details Date Type Department Care Team (Latest Contact Info) Description 12/05/2020 Travel Social History Tobacco Use Types Packs/Day [...] 16:37 EDT documented as of this encounter Functional Status [...] on filedocumented in this encounter Care Teams Passenger Relations Representative Relationship Specialty Start Date End Date Olya Bauman MD [address] [place] [address] PCP - General 11/05/17 07/06/23 documented as of this encounter
--- OUTSIDE RECORDS SUMMARY | 2023-12-25 15:24 | XMS_ITS | Encounter Summary ---
Author Organization [facility] Address [address] [place] [address] Care Team Providers Care Ratings Analyst Name Role Phone Olya Bauman MD Primary Care Provider [phone] Reason for Visit * Reason Onset Date Comments Results 11/26/2019 [id number] Encounter Details Date Type Department Care Team (Late st Contact Info) Description 11/26/2019 Telephone [facility] Cardiology Clinic [address] [place] [id number] Estrellita Mccoy RN Results ([id number]) Social History Tobacco Use Types Packs/Day Years [...] encounter Miscellaneous Notes * Telephone Encounter - Estrellita Mccoy RN - 11/26/2019 1050 EDT TCT patient, advised tested negative for COVID19. Today Shaka feels much better * Telephone Encounter - Estrellita Mccoy RN - 11/26/2019 0841 EDT called patient, l/m to call the Covid call center for results. Pt has been tested for Covid19 d/t: cough for 3 days. Also - shortness of breath with exercise, body aches, sore throat and headaches documented in this encounter Plan of Treatment Not on file documented as of this encounter Visit Diagnoses Not on filedocumented in this encounter Care Teams Ratings Analyst Relationship Specialty Start Date End Date Olya Bauman MD [address] [place] [address] PCP - General 11/05/17 07/06/23 documented as of this encounter
--- OUTSIDE RECORDS SUMMARY | 2023-12-25 15:24 | XMS_ITS | Encounter Summary ---
Author Organization [facility] Address [address] [place] [address] Care Team Providers Care Machine Operator Packaging Name Role Phone Olya Bauman MD Primary Care Provider [phone] Encounter Details Date Type Department Care Team (Late st Contact Info) Description 12/21/2018 Results Only [facility] - Main [place] [address] [place], [place] [id number] Charmaine Bennett PA [address] [place] [address] Social History Tobacco Use Types [...] Procedure Name Priority Date/Time Associated Diagnosis Comments MAGNESIUM POC - [facility] Routine 12/21/2018 12:05 EDT documented in this encounter Results * MAGNESIUM POC - [facility] (12/21/2018 12:05 EDT) Magnesium 2.00 1.60 - 2.30 MG/DL 12/21/2018 12:07 EDT [facility] 12/21/2018 12:0 5 EDT 12/21/2018 12:05 EDT Narrative [facility] - 12/21/2018 12:07 EDT MULTIPLY RESULT BY 1.210 FOR PATIENTS EGFR CALCULATED USING THE IDMS-TRACEABLE MDRD STUDY Charmaine TANG CHEMISTRY & BLOOD GA S ORDERABLES [facility] documented in this encounter Visit Diagnoses Not on filedocumented in this encounter Care Teams Machine Operator Packaging Relationship Specialty Start Date End Date Olya Bauman MD [address] [place] [address] PCP - General 11/05/17 07/06/23 documented as of this encounter
--- OUTSIDE RECORDS SUMMARY | 2023-12-25 15:24 | XMS_ITS | Encounter Summary ---
Author Organization [facility] Address [address] [place] [address] Care Team Providers Care Care Management Associate Name Role Phone Olya Bauman MD Primary Care Provider Encounter Details Date Type Department Care Team (Late st Contact Info) Description 12/21/2018 Results Only [facility] - Main [place] [address] [place], [place] [phone] Charmaine Bennett PA [address] [place] [address] Social History Tobacco Use Types [...] Diagnosis Comments VITAMIN D 25 POC - [facility] Routine 12/21/2018 12:05 EDT documented in this encounter Results * VITAMIN D 25 POC - [facility] (12/21/2018 12:05 EDT) VIT D, 25 HYDROXY - [facility] 66 30 - 100 NG/ML 12/21/2018 12:07 EDT [facility] 12/21/2018 12:0 5 EDT 12/21/2018 12:05 EDT Narrative [facility] - 12/21/2018 12:07 EDT MULTIPLY RESULT BY 1.210 FOR PATIENTS EGFR CALCULATED USING THE IDMS-TRACEABLE MDRD STUDY Charmaine TANG CHEMISTRY & BLOOD GA S ORDERABLES [facility] documented in this encounter Visit Diagnoses Not on filedocumented in this encounter Care Teams Care Management Associate Relationship Specialty Start Date End Date Olya Bauman MD [address] [place] [address] PCP - General 11/05/17 07/06/23 documented as of this encounter
--- OUTSIDE RECORDS SUMMARY | 2023-12-25 15:24 | XMS_ITS | Encounter Summary ---
Author Organization [facility] Address [address] [place] [address] Care Team Providers Care Bull Gang Supervisor Name Role Phone Olya Bauman MD Primary Care Provider [phone] Reason for Referral * Laboratory Services (Routine) - New Request Specialty Diagnoses / Procedures Referred By Edwar segovia Referred To Contact Diagnoses Cough Procedures COVID-19 TESTING Reema Kumar, [facility] [address] [place] [id number] Referral ID Status Reason Start Date Expiration Date V isits Requested Visits Authorized [id number] New Request 11/24/2019 1 1 Reason for Visit * Reason Onset Date Comments Other 11/21/2019 COVID-19 Call Ce nter Encounter Details Date Type Department Care Team (Late st Contact Info) Description 11/24/2019 Telephone [facility] - [facility] Family Medicine [address] [address] Dari Cordova RN Other (COVID-19 Call Center) Social History Tobacco Use Types Packs/Day Years [...] encounter Miscellaneous Notes * Telephone Encounter - Emy Faust - 11/24/2019 0850 EDT C-19 screening recommended by provider. Routed for testing ordering. Vehicle [employer] w/ truck cap Color: White Cell #: [phone] Spoke to patient and verbally gave instructions for Testing Facility. Patient is instructed to be there at 10:30 am sharp. * Telephone Encounter - Reema Kumar - 11/24/2019 0837 EDT This patient does meet criteria for testing for C19 based on current algorithm. Per RN note the patient is stable to await testing and strict emergency department precautions have been reviewed. Testing is ordered and routed to scheduling. * Telephone Encounter - Dari Cordova RN - 11/24/2019 0833 EDT This patient is calling the [facility] COVID-19 information center with concern for COVID-19. Patient contact number - [phone]. The patient has had cough for 3 days. Also - shortness of breath with exercise, body aches, sore throat and headaches. Denies fever, loss of taste/smell, and GI issues. COVID-19 testing is indicated according to current [facility] algorithm. The patient has not been previously tested for Covid-19. (if yes - list date of testing) Patient is not a health care worker. Patient is not immunocompromised. The patient is not a resident of a jail or assisted living facility. (If patient is, home health will facilitate testing once ordered). This patient is currently stable, and was advised to go to the ER or call 911 with any worsening symptoms. Did review the following information with patient: COVID-19 Home Instructions COVID-19 is a viral illness that cannot be treated with antibiotics or antivirals, and there is no vaccine. Symptoms are fever, cough, and shortness of breath that can last 2-4 weeks. Some people will have headache, sore throat, body aches, chills, diarrhea and loss of taste or smell. It is spread through person to person contact or by touching objects and surfaces that are contaminated with the virus and then touching your mouth, nose, or eyes. If you are experiencing any symptoms, it is important that you ???self-isolate?? , meaning stay home and do the following: ??? Stay home, get rest, and drink plenty of healthy fluids (like water, Gatorade). ? Take Tylenol (acetaminophen) pain relievers, fever reducers, decongestants or cough medicine tomanage symptoms. Avoid NSAID's (Advil, Motrin, and Aleve). ??? Call your PCP first if you have chronic health conditions before you take these medications. ? Do not go to work/school/public areas. ? Avoid public transportation/ride-sharing/taxis. ? Separate yourself from other people and animals in your home. ? Use a separate bathroom if available. ? Cover your coughs and sneezes with a tissue. ??? Wear a facemask when around other people. ? Avoid sharing personal household items (cups, dishes, utensils, towels, bedding) ? Clean your hands often either with soap and water for 20 seconds or an alcohol-based hand gis programmer that contains at least 60% alcohol. ? Clean high-touch surfaces every day (counter, tables, doorknobs, toilet, computer, etc.) We ask that you check your temperature and monitor your symptoms daily. Seek prompt medical care ifyour illness is worsening. Complications of the illness include pneumonia, organ failure, and in some cases . Severe symptoms include: ??? Shortness of breath or difficulty breathing (feeling like you can't get enough air or are gasping, unable to speak without stopping for air, feelings of distress). ? Weakness, dizziness, or chest pain. If you are experiencing any of these symptoms, please call your primary care office BEFORE seeking care, or call 911 if it is a medical emergency. Inform your PCP office or police and fire dispatcher that you are on self-isolation for possible COVID-19 and have worsening symptoms. If you are able, wear a mask before entering any facility. These steps will help reduce possible transmission to other people. What do I do while waiting for my test results? After you have had your test, you should ???self-isolate?? until you receive your test results. This means you should stay home, separate yourself from others and pets. You should not leave your home for any reason unless it is a medical emergency. This includes things like going to other medical a ppointments, the grocery story, to visit family and friends. When do I no longer need to stay home and ???self-isolate?? ? You can stop isolation if your test results were negative and you do not have any symptoms, or if you had symptoms but now meet all three of the following conditions: 1. You have had no fever for at least the last 24 hours (that means one full day of no fever without the use of fever-reducing medication) AND 2. Other symptoms have improved (for example, when your cough or shortness of breath gets better) AND 3. At least 10 days have passed since your symptoms first appeared. How will I get my results? Test results are usually ready in 4 days. All results are called by an RN. If you have not receivedthe results after 4 days, contact the provider who ordered the testing or the COVID Call Center. documented in this encounter Plan of Treatment Not on file documented as of this encounter Procedures Procedure Name Priority Date/Time Associated Diagnosis Comments COVID-19 TESTING Routine 11/24/2019 10:2 1 EDT Cough documented in this encounter Results * COVID-19 TESTING (11/24/2019 10:21 EDT) Performing Lab [facility] 11/26/2019 7:31 [facility] Comment: Please indicate the Triage Tier2 Test performed or referred by The [address] [address] COVID-19 rt-PCR Result Not Detected Negative 11/26/2019 7:31 [facility] Comment: 2019-novel Coronavirus (2019-nCoV) not [...] NASOPHARYNX / Unknown 11/24/2019 10:21 EDT 11/24/2019 11:07 EDT Reema Kumar LAPIDARY APPRENTICE MICROBIOLOGY - GENER AL ORDERABLES [facility] [address] [place] [address] documented in this encounter Visit Diagnoses Diagnosis Cough- Primary documented in this encounter Care Teams Bull Gang Supervisor Relationship Specialty Start Date End Date Olya Bauman MD [address] [place] [address] PCP - General 11/05/17 07/06/23 documented as of this encounter
--- OUTSIDE RECORDS SUMMARY | 2023-12-25 15:24 | XMS_ITS | Encounter Summary ---
Author Organization [facility] Address [address] [place] [address] Care Team Providers Care Automation Controls Specialist Name Role Phone Olya Bauman MD Primary Care Provider [phone] Encounter Details Date Type Department Care Team (Latest Contact Info) Description 09/10/2020 Travel Social History Tobacco Use Types Packs/Day [...] 11:33 EDT documented as of this encounter Functional [...] on filedocumented in this encounter Care Teams Automation Controls Specialist Relationship Specialty Start Date End Date Olya Bauman MD [address] [place] [address] PCP - General 11/05/17 07/06/23 documented as of this encounter
--- OUTSIDE RECORDS SUMMARY | 2023-12-25 15:24 | XMS_ITS | Encounter Summary ---
Author Organization [facility] Address [address] [place] [address] Care Team Providers Care Ferryboat Deckhand Name Role Phone Olya Bauman MD Primary Care Provider [phone] Encounter Details Date Type Department Care Team (Late st Contact Info) Description 02/26/2018 Historical Results Only [facility] - [facility] - Main [address] [id number] Juana Olmedo, ASUNCION [address] [place] [address] Social History Tobacco Use Types [...] Procedure Name Priority Date/Time Associated Diagnosis Comments GC/CHLAMYDIA URINE - [facility] Routine 02/26/2018 11:00 EST BACTERIAL CULTURE, URINE Routine 02/26/2018 8:00 EST POCT URINALYSIS Routine 02/26/2018 7:56 EST documented in this encounter Results * GC/CHLAMYDIA URINE - [facility] (02/26/2018 11:00 EST) CHLAMYDIA URINE PCR - [facility] NOT DETECTED 02/26/2018 17:24 EST [facility] GONORRHEA URINE PCR - [facility] NOT DETECTED 02/26/2018 17:24 EST [facility] SOURCE URINE 02/26/2018 17:24 EST [facility] 02/26/2018 11:0 0 EST 02/26/2018 14:06 EST Juana Olmedo NP CHEMISTRY & BLOOD GA S ORDERABLES [facility] * BACTERIAL CULTURE, URINE (02/26/2018 8:00 EST) Urine Culture 02/27/2018 10:10 EST [facility] Urine Culture No growth. 02/27/2018 10:10 EST [facility] 02/26/2018 8:00 EST 02/26/2018 13:18 EST Comment:VOID Narrative [facility] - 02/27/2018 10:10 EST Does PT Have a Latex Allergy? NO Juana Olmedo NP MICROBIOLOGY - GENER AL ORDERABLES [facility] * (ABNORMAL) POCT URINALYSIS (02/26/2018 7:56 EST) URINE APPEARANCE - [facility] Sl Cloudy CLEAR 02/26/2018 7:57 EST [facility] URINE BILIRUBIN - [place] - [facility] 1+ NEGATIVE 02/26/2018 7:57 EST [facility] URINE BLOOD - [facility] Negative NEGATIVE 02/26/2018 7:57 EST [facility] URINE COLOR - [facility] Yellow YELLOW 02/26/2018 7:57 [facility] URINE GLUCOSE - [place] - [facility] Negative NEGATIVE 02/26/2018 7:57 [facility] URINE KETONE - [facility] Negative NEGATIVE 02/26/2018 7:57 [facility] URINE LEUK ESTERASE - [facility] Negative NEGATIVE 02/26/2018 7:57 [facility] URINE NITRITE - [place] - [facility] Negative NEGATIVE 02/26/2018 7:57 [facility] URINE PH - [facility] 6.0 () 7:57 [facility] URINE PROTEIN - [place] - [facility] Negative NEGATIVE 02/26/2018 7:57 [facility] URINE SPECIFIC GRAVITY - [facility] >=1.030(H) () 02/26/2018 7:57 [facility] URINE UROBILINOGEN - [place] - [facility] 0.2 0.2 - 1.0 EU/DL 02/26/2018 7:57 [facility] 02/26/2018 7:56 EST 02/26/2018 7:56 EST Juana Olmedo UTILITY TRACTOR OPERATOR POINT OF CARE TEST O RDERABLES [facility] documented in this encounter Visit Diagnoses Not on filedocumented in this encounter Care Teams Ferryboat Deckhand Relationship Specialty Start Date End Date Olya Bauman MD [address] [place] [id number] PCP - General 11/05/17 07/06/23 documented as of this encounter
--- OUTSIDE RECORDS SUMMARY | 2023-12-25 15:24 | XMS_ITS | Encounter Summary ---
Author Organization [facility] Address [address] [place] [address] Care Team Providers Care Loom Setter Fourdrinier Name Role Phone Olya Bauman MD Primary Care Provider [phone] Encounter Details Date Type Department Care Team (Late st Contact Info) Description 12/21/2018 Results Only [facility] - [facility] - Main [place] [address] [place], [place] [id number] Charmaine Bennett PA [address] [place] [address] Social History Tobacco Use Types [...] Procedure Name Priority Date/Time Associated Diagnosis Comments POCT CHOLESTEROL LDL ([facility]) Routine 12/21/2018 12:05 EDT documented in this encounter Results * POCT CHOLESTEROL LDL ([facility]) (12/21/2018 12:05 EDT) LDL CHOLESTEROL - [facility] 87 60 - 100 MG/DL 12/21/2018 12:07 EDT [facility] 12/21/2018 12:0 5 EDT 12/21/2018 12:05 EDT Narrative [facility] - 12/21/2018 12:07 EDT MULTIPLY RESULT BY 1.210 FOR PATIENTS EGFR CALCULATED USING THE IDMS-TRACEABLE MDRD STUDY Charmaine TANG POINT OF CARE TEST O RDERABLES [facility] documented in this encounter Visit Diagnoses Not on filedocumented in this encounter Care Teams Loom Setter Fourdrinier Relationship Specialty Start Date End Date Olya Bauman MD [address] [place] [address] PCP - General 11/05/17 07/06/23 documented as of this encounter
--- OUTSIDE RECORDS SUMMARY | 2023-12-25 15:24 | XMS_ITS | Encounter Summary ---
Author Organization [facility] Address [address] [place] [address] Care Team Providers Care Esthetician Name Role Phone Olya Bauman MD Primary Care Provider [phone] Encounter Details Date Type Department Care Team (Late st Contact Info) Description 01/01/2018 Historical Results Only [facility] - [facility] - [address] [address] Hood Tran PA-C [address] [place] [phone] Social History Tobacco Use Types Packs/Day Years [...] Procedure Name Priority Date/Time Associated Diagnosis Comments COMPLETE BLOOD COUNT WITH DIFFERENTIAL (AUTO) Routine 01/01/2018 10:29 EST documented in this encounter Results * COMPLETE BLOOD COUNT WITH DIFFERENTIAL (AUTO) (01/01/2018 10:29 [facility]) ABSOLUTE NEUTROPHIL COUN - [facility] 3.54 1.7 - 7.0 10e3/ul 01/01/2018 10:40 [facility] BASO # - [facility] 0.03 0.0 - 0.3 10e3/uL 01/01/2018 10:40 [facility] BASO % - [facility] 1 0 - 2 % 01/01/2018 10:40 [facility] EOS # - [facility] 0.10 0.05 - 0.5 10e3/uL 01/01/2018 10:40 [facility] EOS % - [facility] 2 0 - 5 % 01/01/2018 10:40 [facility] GRAN % - [facility] 55 40 - 80 % 01/01/2018 10:40 [facility] HEMATOCRIT - [facility] 46.7 36.0 - 52.0 % 01/01/2018 10:40 [facility] HEMOGLOBIN - [facility] 15.9 13.7 - 17.5 g/dl 01/01/2018 10:40 [facility] IG# - [facility] 0.01 0 - 0.07 10e3/uL 01/01/2018 10:40 [facility] IG% - [facility] 0.2 0 - 0.9 % 01/01/2018 10:40 [facility] LYMPH # - [facility] 2.26 0.9 - 2.9 10e3/uL 01/01/2018 10:40 [facility] LYMPH% - [facility] 35 20 - 40 % 01/01/2018 10:40 [facility] MEAN CORPUSCULAR HGB - [facility] 28.5 26 - 34 pg 01/01/2018 10:40 [facility] MEAN CORPUSCULAR HGB CONC - [facility] 34.0 31 - 36 g/dL 01/01/2018 10:40 [facility] MEAN CELL VOLUME - [facility] 83.7 77 - 100 fl 01/01/2018 10:40 [facility] MONO # - [facility] 0.53 0.3 - 0.9 10e3/uL 01/01/2018 10:40 [facility] MONO% - [facility] 8 0 - 12 % 01/01/2018 10:40 [facility] PLATELET COUNT 167 150 - 400 10e3/ul 01/01/2018 10:40 [facility] RED BLOOD COUNT - [facility] 5.58 4.3 - 5.7 10e6/ul 01/01/2018 10:40 [facility] RED CELL DISTRI WIDTH - [facility] 12.6 11.8 - 15.6 % 01/01/2018 10:40 [facility] WHITE BLOOD COUNT - [facility] 6.5 3.5 - 10.5 10e3/ul 01/01/2018 10:40 [facility] 01/01/2018 10:2 9 EST 01/01/2018 10:34 EST Hood Tran PA-C HEMATOLOGY & PF4 ORD ERABLES [facility] documented in this encounter Visit Diagnoses Not on filedocumented in this encounter Care Teams Esthetician Relationship Specialty Start Date End Date Olya Bauman MD [address] [place] [address] PCP - General 11/05/17 07/06/23 documented as of this encounter
--- OUTSIDE RECORDS SUMMARY | 2023-12-25 15:24 | XMS_ITS | Encounter Summary ---
Author Organization [facility] Address [address] [place] [address] Care Team Providers Care Tour Agent Name Role Phone Olya Bauman MD Primary Care Provider [phone] Encounter Details Date Type Department Care Team (Late st Contact Info) Description 08/09/2020 Results Only [facility] - Main [place] [address] [place], [place] [id number] Charmaine Bennett PA [address] [place] [address] Social History Tobacco Use Types [...] Associated Diagnosis Comments LIPID PANEL POC - [facility] Routine 08/09/2020 16:11 EDT POCT CHOLESTEROL LDL ([facility]) Routine 08/09/2020 16:11 EDT documented in this encounter Results * (ABNORMAL) LIPID PANEL POC - [facility] (08/09/2020 16:11 EDT) Triglyceride 206(H) 0.00 - 150.00 MG/DL 08/10/2020 16:[address] [facility] Cholesterol 169 0.00 - 200.00 MG/DL 08/10/2020 16:[address] [facility] HDL 35(L) 40.00 - 60.00 MG/DL 08/10/2020 16:[address] [facility] 08/09/2020 16:1 1 EDT 08/09/2020 16:11 EDT Charmaine TANG CHEMISTRY & BLOOD GA S ORDERABLES [facility] [address] [place] [address] * POCT CHOLESTEROL LDL ([facility]) (08/09/2020 16:11 EDT) Pathologist [facility] LDL CHOLESTEROL - [facility] 93 60 - 100 mg/dl 08/10/2020 16:[address] [facility] 08/09/2020 16:1 1 EDT 08/09/2020 16:11 EDT Charmaine TANG POINT OF CARE TEST O RDERABLES [facility] [address] [place] [address] documented in this encounter Visit Diagnoses Not on filedocumented in this encounter Care Teams Tour Agent Relationship Specialty Start Date End Date Olya Bauman MD [address] [place] [address] PCP - General 11/05/17 07/06/23 documented as of this encounter
--- OUTSIDE RECORDS SUMMARY | 2023-12-25 15:24 | XMS_ITS | Encounter Summary ---
Author Organization [facility] Address [address] [place] [address] Care Team Providers Care Engineering Operator Name Role Phone Olya Bauman MD Primary Care Provider [phone] Encounter Details Date Type Department Care Team (Latest Contact Info) Description 10/02/2020 Travel Social History Tobacco Use Types Packs/Day [...] 15:31 EDT documented as of this encounter Functional [...] on filedocumented in this encounter Care Teams Engineering Operator Relationship Specialty Start Date End Date Olya Bauman MD [address] [place] [address] PCP - General 11/05/17 07/06/23 documented as of this encounter
== END 2023-12-25 15:22 | disposition home or self-care (01) ==
PROVIDERS: Emergency Provider Emergency Medicine; PCP Internal Medicine
DX: S61.452A Open bite of left hand, initial encounter (principal); Z23 Encounter for immunization; W54.0XXA Bitten by dog, initial encounter
CPT/HCPCS: 90471; 90714; 99284; 99283